=== PATIENT | male | born 1965 | race Caucasian/White ===

== ENCOUNTER → 2018-07-13 05:57 | Outpatient (CLI) | payer SELFPAY ==
--- NOTE | 2018-07-13 06:00 | ECHOD_ITS ---
Reason For Study: AFIB Procedure This was a 2D Doppler, Color Flow transthoracic echocardiogram. Exam performed in department. Left Ventricle Normal LV size. Left ventricular systolic function is lower limits of normal. The estimated ejection fraction is 53 %. Stage 1 diastolic dysfunction. No regional wall motion abnormalities noted. Right Ventricle Normal RV size. Normal systolic function. Atria Normal left atrium. Normal right atrium. Mitral Valve Normal mitral valve. Tricuspid Valve Normal tricuspid valve. Aortic Valve Trisinus/trileaflet aortic valve. Trivial aortic valve insufficiency. Pulmonic Valve Normal pulmonic valve. Great Vessels Normal aortic root. The pulmonary artery is normal size. Normal inferior vena cava. Pericardium/Pleural No pericardial effusion. Medication Diluted definity 6ml given slow IV push to enhance endocardial definition. MMode/2D Measurements & Calculations LVIDd: 4.8 cm IVSd: 0.99 cm Ao root diam: 3.5 cm RVDd: 3.7 cm LVPWd: 0.99 cm LA dimension: 3.2 cm LAV(MOD-bp): 49.5 ml EDV(MOD-sp4): 108.7 ml EDV(MOD-sp2): 122.7 ml LAV(MOD-bp) Indexed: 22.3 ml/m2 ESV(MOD-sp4): 50.0 ml EF(MOD-sp2): 36.6 % LAV(MOD-sp2): 51.9 ml EF(MOD-sp4): 54.0 % LAV(MOD-sp4): 43.5 ml SV(MOD-sp4): 58.7 ml SV(MOD-sp2): 44.9 ml LA A4 area: 16.5 cm2 RA A4 area: 16.0 cm2 Time Measurements MV dec time: 0.22 sec Doppler Measurements & Calculations MV E max joe: 41.9 cm/sec Lat Peak E' Joe: 10.1 cm/sec Med Peak E' Joe: 9.7 cm/sec MV A max joe: 51.4 cm/sec E/E' lat: 4.1 E/E' med: 4.3 MV E/A: 0.81 Ao V2 max: 109.9 cm/sec AI max joe: 415.1 cm/sec LV V1 max: 88.3 cm/sec Ao max P.8 mmHg AI max P.9 mmHg LV V1 max P.1 mmHg AI dec slope: 226.7 cm/sec2 AI P1/2t: 536.3 msec PA V2 max: 89.4 cm/sec PI end-d joe: 85.9 cm/sec TR max joe: 228.1 cm/sec TR max P.8 mmHg Interpretation Summary Normal LV size. Left ventricular systolic function is lower limits of normal. The estimated ejection fraction is 53 %. Stage 1 diastolic dysfunction. Contrast injection was performed. Ordering Physician: Michael Mata Performed By: Karla Lua RDCS, RVT
--- NOTE | 2018-07-13 17:58 | STRESSREP_ITS ---
Stress Test Report Exercise myocardial perfusion stress test. 53-year-old man with a history of alcoholic cardiomyopathy. Stress protocol: Resting EKG demonstrates normal sinus rhythm with a rate of 67 bpm normal intervals and noted resting blood pressure is 120/81 mmHg. The patient exercised according to the regular Ramesh protocol for total duration of 11 minutes patient completed 2 minutes into stage IV of the Ramesh protocol the maximum heart rate attained was 162 bpm which was 95% of maximum predicted heart rate the maximum workload was 13.4 metabolic equivalents. At rest there were no ST or T-wave changes noted suggest ischemia peak exercise upsloping ST changes only were noted with no meet the criteria for ischemia. No clinical angina was noted. There were occasional premature ventricular complexes noted as well as one 8 beat run of a wide complex tachyarrhythmia. This was asymptomatic. The resting blood pressures 120/81 with a peak blood pressure 160 /88. The test was terminated due to generalized fatigue. Myocardial perfusion protocol. 12.0 mCi of technetium 99m sestamibi was injected at rest. The patient then exercised according to regular Ramesh protocol for total duration of 11 minutes attaining 95% of maximum predicted heart rate and a workload of 13.4 metabolic equivalents. At peak exercise 35.9 mCi of technetium 99m sestamibi was injected stress images were obtained stress and rest images were reconstructed and compared in the short axis vertical long horizontal long axis. Gated images were also obtained pre- Perfusion SPECT analysis: Review of the stress images demonstrate normal uptake of tracer noted in all areas of myocardium. The resting images similarly demonstrate normal uptake of tracer noted in all areas of the myocardium. No areas of reversibility are noted suggest ischemia. No previous infarct is noted. Gated SPECT analysis: The gated ejection fraction is noted to be 51%. Conclusion: Normal exercise myocardial perfusion stress test with no evidence of ischemia. Excellent functional capacity. No clinical angina noted. Asymptomatic wide complex tachycardia noted.
== END ==
PROVIDERS: Visit Provider Internal Medicine Cardiovascular Disease
DX: I48.91 Unspecified atrial fibrillation (principal); I42.9 Cardiomyopathy, unspecified; R07.9 Chest pain, unspecified
CPT/HCPCS: 78452; 93017; 93306; A9500; Q9957; A4216; C8929

== ENCOUNTER 2020-04-26 15:55 | Observation (INO) | payer BC, SELFPAY ==
[2019-11-19 08:57] VITALS: BMI 26.9
[2020-04-26] VITALS (7 sets, daily range): BP systolic 113–156; BP diastolic 71–102; PULSE 59–83; RESP 16–18; TEMP 36.7–37; O2SAT 95–99; BMI 27.1; BMI 26.9
--- NOTE | 2020-04-26 16:37 | EKG12_ITS ---
Test Reason : DYSRHYTHMIA Blood Pressure : / mmHG Vent. Rate : 070 BPM Atrial Rate : 070 BPM P-R Int : 180 ms QRS Dur : 094 ms QT Int : 386 ms P-R-T Axes : 064 025 034 degrees QTc Int : 416 ms Normal sinus rhythm Normal ECG Confirmed by JEFFREY CELESTIN, BARRY ([id number]), website/blog editor KRUPA VIEIRA ([id number]) on 05/01/2020 8:03:47 AM Referred By: CL Confirmed By:BARRY MURPHY MD
--- NOTE | 2020-04-26 16:38 | ED.VIS.GEN ---
History of Present Illness Chief Complaint: Shortness of Breath Informant: Patient Narrative: 54-year-old male with past medical history of paroxysmal atrial fibrillation presents with concern for weakness, dizziness, shortness of breath, blurred vision, difficulty speaking. States this occurred approximately 8 hours ago. States that he was seated in a truck whenever he felt like his vision became slightly blurred. States that at that time he felt like his ears were getting warm and he had difficulty speaking. States this lasted for 2 to 3 minutes. States that he went to [facility] they ran a full panel of tests and wanted to admit him to the hospital. Patient lives closer to this hospital so he came here for further evaluation. States that he is this issue intermittently. States that the last episode was approximately 1 month ago. Patient is not on anticoagulation for his paroxysmal Atrial fibrillation. Only takes metoprolol at this time. Denies any drugs or alcohol. Patient is not a current smoker. Past Medical History - Allergies and Home Meds Allergies/Adverse Reactions: Allergies No Known Allergies Allergy (Verified 04/26/20 15:56) Prior records reviewed: Yes Past Medical History: - - PAF Surgical History: no surgical history Smoking Status: Never smoker Alcohol: None Drugs: None Review of Systems General: Denies: Chills, Fever, Sweats Eyes: Reports: Blurred Vision - bilaterally. Denies: Visual changes - bilaterally, Diplopia ENT: Denies: Rhinorrhea, Sore throat Cardiovascular: Denies: Chest pain, Palpitations Respiratory: Reports: Dyspnea. Denies: Cough, Dyspnea on exertion Gastrointestinal: Denies: Abdominal pain, Nausea, Vomiting, Diarrhea, Melena, Hematochezia Genitourinary: Denies: Dysuria, Hematuria, Frequency Musculoskeletal: Denies: Back pain, Extremity Pain Skin: Denies: Rash, Wounds Neurological: Reports: Weakness, - - difficulty speaking. Denies: Headache, Numbness Physical Exam Vital Signs/Narrative: Vital Signs Temp Pulse Resp BP Pulse Ox 04/26/20 15:57 98.2 F 79 18 156/88 H 99 Inital Vital Signs reviewed: Yes General: Well nourished, Well developed, No Acute Distress Head: Normocephalic, Atraumatic Eyes: Perrl, EOMI ENT: Moist mucous membranes, No rhinorrhea Neck: Supple, Nontender Cardiovascular: Regular rate, Regular rhythm, No murmurs Respiratory: No distress, CTA bilaterally, Chest nontender Abdomen: Soft, Nontender, Nondistended, Normal bowel sounds Back: Nontender, Normal Inspection Extremities: Nontender, No edema Skin: Normal color, No rash Neurological: Alert, Oriented x3, Cranial nerves II-XII grossly intact, Normal Strength, Normal Sensation Psychological: Normal affect, Normal Mood Diagnostic/Tx/Re-eval Laboratory Data 04/26/20 04/26/20 04/26/20 16:45 16:45 16:49 WBC 8.0 RBC 5.08 Hgb 15.1 Hct 45.5 MCV 89.6 MCH 29.7 MCHC 33.2 RDW Std Deviation 42.4 RDW Coeff of Cher 12.9 Plt Count 214 MPV 10.8 Immature Gran % (Auto) 0.600 Neut % (Auto) 74.3 H Lymph % (Auto) 17.9 L [place] % (Auto) 6.3 Eos % (Auto) 0.4 Baso % (Auto) 0.5 Absolute Neuts (auto) 6.0 Absolute Lymphs (auto) 1.44 Nucleated RBC % 0 Sodium 139 Potassium 4.1 Chloride 107 Carbon Dioxide 27.0 Anion Gap 5 BUN 8 Creatinine 0.99 Estim Creat Clear Calc 101.48 Est GFR (MDRD) Af Amer 101 Est GFR (MDRD) Non-Af 84 BUN/Creatinine Ratio 8.1 L Glucose 108 H Calcium 9.4 Troponin I < 0.015 TSH 1.89 POC Glucose 101 - Rhythm Strip Rhythm Strip: Sinus Rhythm Rate: 70 Ectopy: None - EKG Initial EKG Interpretation: Sinus Rhythm, - - NSR at 70 bpm. WV interval of 180 ms. Qtc of 416 ms. No acute ischemia. - Medical Decision Making Appears and well nontoxic. No focal neurologic deficit. CT brain done at outlying facility with negative result. Basic lab work repeated which shows no significant abnormality. Troponin remains negative and EKG nonischemic. Patient did receive aspirin. Spoke with the physician at [place] who felt that the patient was having TIAs. After discussion with the patient he is agreeable with admission. Spoke with Dr. Ludwig who was also agreeable and patient was admitted in stable condition. ED Disposition - Plan for ED Patient: Diagnosis: TIA (transient ischemic attack), Dyspnea
[2020-04-26 16:55] LABS: Bedside Glucose 101 mg/dL (70-110)
[2020-04-26 17:05] LABS: Absolute Lymphocyte Count 1.44 X10^3/uL (0.83-4.51); Basophil# 0.04 X10^3/uL; Basophil% 0.5 % (0-1); Eosinophil# 0.03 X10^3/uL; Eosinophils% 0.4 % (0-5); Hematocrit 45.5 % (40-54); Hemoglobin 15.1 g/dL (13.0-16.5); Lymphocyte # 1.44 X10^3/ul (4.0); Lymphocyte % 17.9 % (19-41); Mean Corp Hgb Conc 33.2 g/dL (32-36); Mean Corpuscular Hgb 29.7 pg (27.0-32.0); Mean Corpuscular Volume 89.6 fL (80-94); Mean Platelet Vol. 10.8 fl (6.2-12.0); Monocyte# 0.51 X10^3/uL; Monocyte% 6.3 % (0-10); NRBC Flagged by Analyzer 0 % (0-5); Neutrophil # 5.97 X10^3/uL (2.7-7.7); Neutrophil % 74.3 % (47-70); Platelet Count 214 K/mm3 (150-450); RBC Distribution Width CV 12.9 % (11.6-14.6); RBC Distribution Width SD 42.4 fl (35.1-43.9); Red Blood Count 5.08 M/mm3 (4.6-6.2)
[2020-04-26 17:29] LABS: Anion Gap 5 (5-15); BUN 8 mg/dL (7-18); BUN/Creat Ratio 8.1 RATIO (10-20); Calcium,Total 9.4 mg/dL (8.5-10.1); Chloride 107 mmol/L (98-107); Creatinine, Serum 0.99 mg/dL (0.70-1.30); EST Glomerular Filtration Rate 84 mL/min (>60); Est Glom Filt Rate - Afr Amer 101 mL/min (>60); Estimated Creatinine Clearance 101.48 ml/min; Glucose 108 mg/dL (74-106); Potassium 4.1 mmol/L (3.5-5.1); Sodium Level 139 mmol/L (136-145); Thyroid Stim Hormone (TSH) 1.89 uIU/mL (0.358-3.74)
--- NOTE | 2020-04-26 18:47 | HP.PCM_ITS ---
Problem List (1) TIA (transient ischemic attack) Status: Acute (2) Dyspnea Status: Acute (3) Paroxysmal atrial fibrillation Status: Chronic History of Present Illness Date of Admission: 04/26/20 Chief Complaint: dysarthria The patient is a 54 year old M who was in his normal state of health up until this morning where he just felt very short of breath. Stated he put a pulse ox on to check his heart rate which he said was normal. Patient does have a known history of paroxysmal atrial fibrillation but stated that when his atrial fibrillation accept he feels palpitations which he did not today. Just felt off felt his ears were warm his head was warm and felt that he could not say things because he was so short of breath. Stated that his hands and his feet were just cold. Denied any unilateral weakness. He denied dysarthria but stated that he just could not say his sister's name nor where she worked even though he knew where it was because he stated that he felt so short of breath. He denies any chest pain. All of his symptoms resolved in short period of time. Patient went to outside emergency room in [place] where they did a head CT and chest x-ray that were unremarkable. They advised the patient be admitted for further stroke evaluation but he declined preferring to come to [facility] for evaluation. Since being here he is had no further symptoms. He denies ever having had these symptoms before. Additionally patient denied any feeling of dizziness or lightheadedness with any of this. [] Past Medical History Past Medical History (Chronic Problems): Chronic Problems (Last Reviewed 11/19/19 @ 10:[address] Michael Mata MD) Paroxysmal atrial fibrillation (Chronic) Medical History: Medical History (Last Reviewed 04/26/20 @ 18:[address] Claudio Harrison DO) Paroxysmal atrial fibrillation (Chronic) I48.0 Non-ischemic cardiomyopathy I42.8 Allergies No Known Allergies Allergy (Verified 04/26/20 15:56) Home Medications: Ambulatory Orders Medication Instructions Recorded Metoprolol Succinate [Toprol Xl] 25 mg PO DAILY 04/26/20 Multivitamin [Multivitamins] 1 tab PO DAILY 04/26/20 Surgical History: Surgical History (Last Reviewed 11/19/19 @ 10:[address] Michael Mata MD) History of cardioversion Onset Date: 09/08/15 Z98.890 Surgical History: no surgical history Smoking Status: Never smoker Alcohol: None Drugs: None - *Family History Maternal Family History: Family History (Last Reviewed 04/26/20 @ 18:[address] Claudio Harrison DO) Other Heart disease Hypertension Review of Systems Constitutional: Denies: Anorexia, Chills, Fever, Malaise, Weakness Eyes: Denies: Blurred vision, Double vision HEENT: Denies: Head Aches, Sinus Congestion, Sinus Drainage Cardiovascular: Denies: Chest Pain, Edema, Palpitations Respiratory: Reports: Shortness of Breath. Denies: Cough Gastrointestinal: Denies: Abdominal Pain, Nausea, Vomiting Genitourinary: Denies: Dysuria Musculoskeletal: Denies: Joint Pain, Joint Tenderness Skin: Denies: Rash, Wounds Neurological: Reports: Change in Speech, - - Unable to say anything because he is so short of breath.. Denies: Blurred vision, Double vision, Slurred speech Psychiatric: Reports: - - Denies history of panic attacks. Denies: Anxiety, Depression Hematologic/ Lymphatic: Denies: Easy Bruising, Easy Bleeding, Hx of blood clot Comment: All review of systems were negative except as mentioned above in the history of present illness and the other review of systems. VTE Information - Inpt Only VTE Present on Admission: No VTE Mechan Device Prophylaxis: None VTE Pharm Prophylaxis ordered?: No Reason prophylaxis not ordered:: Treatment Not Indicated Patient Problems: Active and Suspected Problems (Last Reviewed 11/19/19 @ 10:[address] Michael Mata MD) TIA (transient ischemic attack) (Acute) Dyspnea (Acute) - Physical Exam Vitals/I&O's: Vital Signs Temp Pulse Resp BP Pulse Ox 37.0 C 60 16 129/102 H 97 04/26/20 18:39 04/26/20 18:39 04/26/20 18:39 04/26/20 18:39 04/26/20 18:39 Oxygen Delivery Method Room Air Weight: 95.1 kg Body Mass Index (BMI) 26.9 Finger Stick Blood Glucose 101 General: Alert, Cooperative, No apparent distress HEENT: Atraumatic, PERRLA, EOMI, Normocephalic Oral: Moist Mucosa, No Gingival or Mucosal Lesions/ Ulcerations Neck: No Nodes, Trachea Midline Lungs: Clear to auscultation, Normal air movement, No rhonchi, No wheeze, No rales Cardiovascular: Regular rate, Regular Rhythm, Normal S1, Normal S2, No murmurs Abdomen: Bowel Sounds Present, Soft, Non Tender, Non-Distended, No Hepato- splenomegaly Extremities: No edema, No Calf Tenderness Skin: No rashes, No breakdown Musculoskeletal: No Tenderness to Palpation of Joints or Extremities, No Muscle Wasting Neurological: Cranial nerves II-XII grossly intact, Motor Exam 5/5 strength throughout Psych/Mental Status: Normal Affect, Appropriate Laboratory Results 04/26/20 16:45: WBC 8.0, RBC 5.08, Hgb 15.1, Hct 45.5, MCV 89.6, MCH 29.7, MCHC 33.2, RDW Std Deviation 42.4, RDW Coeff of Cher 12.9, Plt Count 214, MPV 10.8, Immature Gran % (Auto) 0.600, Neut % (Auto) 74.3 H, Lymph % (Auto) 17.9 L, [place] % (Auto) 6.3, Eos % (Auto) 0.4, Baso % (Auto) 0.5, Absolute Neuts (auto) 6.0, Absolute Lymphs (auto) 1.44, Nucleated RBC % 0 04/26/20 16:45: Sodium 139, Potassium 4.1, Chloride 107, Carbon Dioxide 27.0, Anion Gap 5, BUN 8, Creatinine 0.99, Estim Creat Clear Calc 101.48, Est GFR (MDRD) Af Amer 101, Est GFR (MDRD) Non-Af 84, BUN/Creatinine Ratio 8.1 L, Glucose 108 H, Calcium 9.4, Troponin I < 0.015, TSH 1.89 04/26/20 16:49: POC Glucose [address] and chest x-ray from [place] showed no acute process. EKG reviewed and showed normal sinus rhythm with no acute changes. Current Medications Sodium Chloride () 10 - 40 ml IV UD PRN PRN Reason: SALINE FLUSH Assessment/Plan All Active Problems (Last Reviewed 11/19/19 @ 10:[address] Michael Mata MD) TIA (transient ischemic attack) (Acute) Dyspnea (Acute) 1. Dysarthria: Patient denies any actual dysarthria but states that he just could not say anything because he was short of breath. The work-up thus far has been unremarkable and patient has not been hypoxic since being here. I am concerned that there is some other process that may be causing his inability to speak rather than just him being short of breath. He states that he did check his pulse ox for his heart rate but not necessary for the oxygen stating that he does not remember what his oxygen levels were. I think it is prudent to worked the patient up for stroke as patient does have paroxysmal atrial fibrillation. Patient denies his atrial fibrillation acting up but explained to him that he may have periods where he may be in A. fib and not know it. The patient had an MRI of the brain, MRA of the head neck and echocardiogram. Consider neurology consultation based on those results. Other possibilities could include vertigo with the patient was feeling dizzy but the patient himself denied feeling dizzy. And another possibility could be cardiac though the patient was not have any chest pain with any of this. So may consider further cardiac evaluation with a stress test if felt to be necessary. I will cycle troponins however. Patient will be on aspirin. 2. Paroxysmal atrial fibrillation: Continue with metoprolol. 3. VTE prophylaxis: Low risk as patient is observation status. 4. Advanced care planning: Patient wishes to be full CODE STATUS. Discussed the case with the patient's sister present at bedside. OBSV E&M: [id number] Initial observation care L3
--- NOTE | 2020-04-26 18:50 | ECHOD_ITS ---
Reason For Study: TIA/CVA Procedure This was a 2D Doppler, Color Flow transthoracic echocardiogram. Exam performed portable in patient room. Left Ventricle Normal LV size. The estimated ejection fraction is 47 %. Normal diastology for age. No regional wall motion abnormalities noted. Right Ventricle Normal RV size. Normal systolic function. Atria Normal left atrium. Normal right atrium. Mitral Valve Normal mitral valve. Trivial eccentric mitral valve insufficiency. Tricuspid Valve Normal tricuspid valve. Mild tricuspid valve insufficiency. Pulmonary artery systolic pressure is 23 mmHg. Aortic Valve Trisinus/trileaflet aortic valve. Mild (1+) eccentric aortic valve insufficiency. Pulmonic Valve Normal pulmonic valve. Mild (1+) pulmonic valve insufficiency. Great Vessels Normal aortic root. The pulmonary artery is normal size. Normal inferior vena cava. Pericardium/Pleural No pericardial effusion. MMode/2D Measurements & Calculations LVIDd: 4.7 cm IVSd: 0.97 cm Ao root diam: 3.4 cm LVIDs: 3.1 cm LVPWd: 0.94 cm RVDd: 4.1 cm FS: 35.3 % LAV(MOD-bp): 32.4 ml LA A4 area: 12.7 cm2 LA dimension(2D): 2.8 cm LAV(MOD-bp) Indexed: 14.6 ml/m2 LAV(MOD-sp2): 27.6 ml LAV(MOD-sp4): 27.6 ml RA A4 area: 16.1 cm2 Doppler Measurements & Calculations MV E max joe: 47.5 cm/sec Lat Peak E' Joe: 11.0 cm/sec Med Peak E' Joe: 8.1 cm/sec MV A max joe: 38.3 cm/sec E/E' lat: 4.3 E/E' med: 5.9 MV E/A: 1.2 Ao V2 max: 115.6 cm/sec AI max joe: 389.3 cm/sec LV V1 max: 92.7 cm/sec Ao max P.3 mmHg AI max P.6 mmHg LV V1 max P.4 mmHg Ao V2 mean: 82.6 cm/sec AI dec slope: 148.1 cm/sec2 Ao mean P.9 mmHg AI P1/2t: 770.0 msec Ao V2 VTI: 23.2 cm PA V2 max: 72.8 cm/sec TR max joe: 222.1 cm/sec TR max P.7 mmHg Interpretation Summary Normal LV size. The estimated ejection fraction is 47 %. Normal diastology for age. Mild (1+) eccentric aortic valve insufficiency. Trivial eccentric mitral valve insufficiency. Mild tricuspid valve insufficiency. Pulmonary artery systolic pressure is 23 mmHg. Compared to prior study, there is no significant change. Ordering Physician: Claudio Harrison Performed By: Zaira Mendoza, SALIMA, RVT
[2020-04-27] VITALS (10 sets, daily range): BP systolic 110–128; BP diastolic 69–81; PULSE 63–75; RESP 16–18; TEMP 36.4–36.8; O2SAT 95–97; BMI 26.9
--- NOTE | 2020-04-27 06:00 | MRI_ITS ---
STUDY: MRI BRAIN WITHOUT CONTRAST REASON FOR EXAM: Male, 54 years old. dysarthria, weakness TECHNIQUE: Standardized multiplanar fat and water weighted pulse sequences were obtained. COMPARISON: None. FINDINGS: Normal size of the ventricles and extra-axial spaces for the patient''s age. Normal white matter tracts of the supratentorial brain. There is no evidence for recent intracranial ischemia or other cause of cytotoxic edema on diffusion weighted imaging (DWI). Normal T2* images of the brain without demonstrated susceptibility artifact. There is no demonstrated hemosiderin stain. 1.2 cm T1 hypointense, inversion recovery isointense, T2 hyperintense mass within the occipital horn of the right lateral ventricle which may represent a choroid plexus cyst which is most of the conspicuous on the diffusion-weighted images. Correlation with the MRI with contrast is recommended. Normal bilateral basal ganglia. Normal thalami. There is no extra-axial fluid accumulation. Normal flow voids within the major intracranial circulation suggesting patency by spin echo criteria. Normal sella turcica, pituitary gland, infundibular stalk, optic chiasm and hypothalamus. Normal tectal plate and pineal gland. Normal midbrain, gonzales and medulla. Normal cerebellum. Normal basal cisterns. Normal bilateral temporal bones. Normal bilateral internal auditory canals. No demonstrated orbital abnormality, within the constraints of a routine brain study. Normal visualized paranasal sinuses. Normal calvarium and skull base. Normal visualized soft tissue structures. Normal visualized upper cervical spine. MRI/Brain without Contrast IMPRESSION: Suspect 1.2 cm of the mass of the occipital horn of the right lateral ventricle possibly a choroid plexus cyst. Correlation with MRI with contrast is recommended. Electronically Signed: Duong Blackwell MD at 10:05 EDT Tel , Service support ,
--- NOTE | 2020-04-27 06:00 | MRI_ITS ---
STUDY: MRA OF THE HEAD WITHOUT CONTRAST REASON FOR EXAM: Male, 54 years old. dysarthria, weakness TECHNIQUE: 3-D [id number] (TOF) imaging was performed with MIPs. The study was performed unenhanced. COMPARISON: None. FINDINGS: Normal bilateral petrous carotid arteries. Normal right cavernous carotid artery with a normal supraclinoid bifurcation. Normal left cavernous carotid artery with a normal supraclinoid bifurcation. Normal right A1 segments of the anterior cerebral artery. Normal left A1 segments of the anterior cerebral artery. Normal intact anterior communicating artery (ACOM). Normal bilateral A2 segments of the anterior cerebral arteries. Normal right M1 and M2 segments of the middle cerebral arteries, with a normal M1 bifurcation. Normal left M1 and M2 segments of the middle cerebral arteries, with a normal M1 bifurcation. Normal right posterior communicating artery (PCOM). Normal left posterior communicating artery (PCOM). Normal bilateral vertebral arteries. Normal basilar artery with a normal basilar bifurcation. The visualized bilateral superior cerebellar (SCA) arteries are normal. Normal bilateral P1, P2 and visualized P3 segments of the posterior cerebral arteries. There is no demonstrated aneurysm of the [place]. There is no major vessel occlusion or hemodynamically significant stenosis. There is no demonstrated abnormality of the visualized brain. MRI/MRA Head ONLY without Contrast IMPRESSION: Normal MRA of the head Electronically Signed: Libia Spaulding, at 10:38 EDT Tel , Service support ,
--- NOTE | 2020-04-27 06:00 | MRI_ITS ---
STUDY: MRA NECK WITH AND WITHOUT CONTRAST REASON FOR EXAM: Male, 54 years old. dysarthria, weakness TECHNIQUE: 3-D [id number] (TOF) imaging was performed in an 1.5 T MRI scanner. IV Dotarem 19ml was administered for the contrast enhanced images. COMPARISON: None. FINDINGS: RIGHT CAROTID ARTERIES: Normal right common carotid artery (CCA). Normal right common carotid bulb. Normal origin of the right internal carotid (ICA) artery without a hemodynamically significant stenosis. Normal visualized cervical portion of the right internal carotid artery. Normal origin of the right external carotid artery (ECA). LEFT CAROTID ARTERIES: Normal left common carotid artery (CCA). Normal left common carotid bulb. Normal origin of the left internal carotid (ICA) artery without a hemodynamically significant stenosis. Normal visualized cervical portion of the left internal carotid artery. Normal origin of the left external carotid artery (ECA). VERTEBRAL ARTERIES: Normal antegrade flow within the bilateral vertebral artery without a hemodynamically significant stenosis. MRI/MRA Neck WITH and W/O Contrast IMPRESSION: Normal bilateral cervical carotid and vertebral arteries. Electronically Signed: Libia Spaulding, at 10:52 EDT Tel , Service support ,
[2020-04-27 06:36] LABS: Cholesterol 217 mg/dL (200); High Density Lipoprotein 38 mg/dL; Triglycerides 97 mg/dL; Very Low Density Lipoprotein 19 mg/dL (5-40)
[2020-04-27] MEDS: LORazepam 2 MG/ML Syringe 1 MG IV ×2 (08:50→10:54)
[2020-04-27] MEDS: Multivitamins,Therapeutic Tablet 1 TABLET PO (10:06)
[2020-04-27] MEDS: Aspirin 81 MG TAB.CHEW PO (10:06)
[2020-04-27] MEDS: Metoprolol(XL)Succ 25 MG Tablet PO (10:06)
--- NOTE | 2020-04-27 10:21 | MRI_ITS ---
STUDY: MRI BRAIN WITH CONTRAST REASON FOR EXAM: Male, 54 years old. mass, follow up to non contrast scan TECHNIQUE: Standardized multiplanar fat and water weighted pulse sequences were obtained. IV Dotarem 19ml given at 930am for mra carotid exam was administered for the contrast portion of the examination. COMPARISON: 04/27/2020 FINDINGS: Previously described of a T2 hyperintense mass within the occipital horn of the right lateral ventricle does not demonstrate appreciable contrast enhancement most consistent with a choroid plexus cyst.. 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 Electronically Signed: Duong Blackwell MD at 12:03 EDT Tel , Service support ,
[2020-04-27] MEDS: 0.9% Saline Lock 10 ML Syringe IV (10:54)
[2020-04-27] MEDS: Acetaminophen 325 MG Tablet 650 MG PO (13:48)
--- NOTE | 2020-04-27 14:23 | PCM.PN.HOSP ---
<Kelechi Vargas - Last Filed: 04/27/20 14:23> Patient Problems: Active and Suspected Problems (Last Reviewed 04/26/20 @ 18:[address] Claudio Harrison DO) TIA (transient ischemic attack) (Acute) Dyspnea (Acute) Reason for Visit: Pt resting comfortably in bed NAD. He states that he does not feel back to himself yet however cant quite define what still is wrong. His presenting symptoms were a new onset of difficulty speaking that he described as feeling too weak to get the words out, but insists that he did not have trouble with word finding or slurring. He denied headache. He had visual changes he described as seeing new floaters. He has none of these symptoms now. He has no confusion. He has no parasthesias or focal weakness. No ataxia, dizziness, or swallowing issues. Vitals/I&O's: Vital Signs Temp Pulse Resp BP Pulse Ox 97.7 F L 64 16 113/81 H 97 04/27/20 10:00 04/27/20 10:06 04/27/20 10:00 04/27/20 10:00 04/27/20 10:00 Oxygen Delivery Method Room Air Weight: 209 lb 10.554 oz Body Mass Index (BMI) 26.9 Finger Stick Blood Glucose 101 Intake and Output for Last 24 Hours 04/25/20 04/26/20 04/27/20 23:59 23:59 23:59 Intake Total 220 / 220 600 / 600 Balance 220 / 220 600 / 600 General: Alert, Oriented x3, Cooperative HEENT: Atraumatic, PERRLA, EOMI, Normocephalic Neck: Supple, No JVD, Negative Carotid Bruits Lungs: Clear to auscultation, Normal air movement Cardiovascular: Regular rate, No murmurs Abdomen: Bowel Sounds Present, Soft, Non Tender Extremities: No edema, Capillary Refill Less than 3 Seconds Skin: No rashes, No breakdown Musculoskeletal: No Tenderness to Palpation of Joints or Extremities Neurological: Cranial nerves II-XII grossly intact Psych/Mental Status: Normal Affect, Appropriate, Alert and oriented to time, place, person, mood and affect Laboratory Results 04/26/20 16:45: WBC 8.0, RBC 5.08, Hgb 15.1, Hct 45.5, MCV 89.6, MCH 29.7, MCHC 33.2, RDW Std Deviation 42.4, RDW Coeff of Cher 12.9, Plt Count 214, MPV 10.8, Immature Gran % (Auto) 0.600, Neut % (Auto) 74.3 H, Lymph % (Auto) 17.9 L, Frontier % (Auto) 6.3, Eos % (Auto) 0.4, Baso % (Auto) 0.5, Absolute Neuts (auto) 6.0, Absolute Lymphs (auto) 1.44, Nucleated RBC % 0 04/26/20 16:45: Sodium 139, Potassium 4.1, Chloride 107, Carbon Dioxide 27.0, Anion Gap 5, BUN 8, Creatinine 0.99, Estim Creat Clear Calc 101.48, Est GFR (MDRD) Af Amer 101, Est GFR (MDRD) Non-Af 84, BUN/Creatinine Ratio 8.1 L, Glucose 108 H, Calcium 9.4, Troponin I < 0.015, TSH 1.89 04/26/20 16:49: POC Glucose 101 04/26/20 20:15: Troponin I < 0.015 04/26/20 22:30: Troponin I < 0.015 04/27/20 05:48: Triglycerides 97, Cholesterol 217 H, LDL Cholesterol 160 H, VLDL Cholesterol 19, HDL Cholesterol 38 L Current Medications Acetaminophen (Tylenol) 650 mg PO Q6H PRN PRN PRN Reason: Pain Score 1-10/Temp > 100.7 F Last Admin: 04/27/20 13:48 Dose: 650 mg Documented by: Aspirin (Aspirin, Baby) 81 mg PO DAILY@0800 BELEN Last Admin: 04/27/20 10:06 Dose: 81 mg Documented by: Dextrose (D50w Syringe) 0 gm IV X1 PRN; Protocol PRN Reason: Hypoglycemia Glucagon () 1 mg IM .X1 PRN PRN Reason: Hypoglycemia Hydralazine HCl (Apresoline Iv) 5 mg IV Q30M PRN PRN Reason: to maintain BP goals Sodium Chloride () 250 mls @ 15 mls/hr IV .[id number] PRN PRN Reason: Saline Flush Sodium Chloride () 250 mls @ 15 mls/hr IV .[id number] PRN PRN Reason: Additional IVPB Infusion Labetalol HCl (Trandate) 10 - 20 mg IV Q10M PRN PRN PRN Reason: to maintain BP goals Meclizine HCl (Antivert) 25 mg PO 4X/DAY PRN PRN PRN Reason: DIZZINESS Metoprolol Succinate (Toprol Xl (Beta Isauro)) 25 mg PO DAILY [facility] Last Admin: 04/27/20 10:06 Dose: 25 mg Documented by: Multivitamins (Multivitamin) 1 tablet PO DAILY@0800 [facility] Last Admin: 04/27/20 10:06 Dose: 1 tablet Documented by: Ondansetron HCl (Zofran) 4 mg IV Q8H PRN PRN PRN Reason: NAUSEA/VOMITING Sodium Chloride () 10 - 40 ml IV UD PRN PRN Reason: SALINE FLUSH Last Admin: 04/27/20 10:54 Dose: 10 ml Documented by: Medical Necessity - Tobacco Use Smoking Status: Never smoker Assessment/Plan All Active Problems (Last Reviewed 04/26/20 @ 18:[address] Claudio Harrison, DO) TIA (transient ischemic attack) (Acute) Dyspnea (Acute) 1. Speech and vision changes - MRI neg for stroke. follo up MRI with contrast shows 1.2 cm choroid plexus cyst in the occipital horn of the right lateral ventricle likely of no significance. MRA of the head and neck is unremarkable. 2D TTE is pending. Troponin negative x3. TSH normal. LDL not within goal. He does have paroxysmal atrial fibrillation and does not take a blood thinner. He is in sinus rhythm. -Ongoing vague complaints however denies presenting complaints. -Obtain EEG -Obtain neuro consult 2. P A. fib-as above, continue metoprolol. DVT prophylaxis This patient was seen by Kelechi Vargas PA-C under the supervision of Doctor Trey. <Berenice Yang - Last Filed: 04/27/20 15:24> Reason for Visit: The following is a reflection of my independent history and physical exam Pt states that he is feeling better but is not quite back to baseline. He states that he is still noticing at times that he is having difficulty getting his words out and is too weak to do so. He reports that he speech is not slurred and he knows what he wants to say but just feels like he is slow with his speech. Denies and T/N/W. No further visual disturbances of the floaters. Vitals/I&O's: Vital Signs Temp Pulse Resp BP Pulse Ox 97.7 F L 64 16 113/81 H 97 04/27/20 10:00 04/27/20 10:06 04/27/20 10:00 04/27/20 10:00 04/27/20 10:00 Oxygen Delivery Method Room Air Weight: 95.1 kg Body Mass Index (BMI) 26.9 Finger Stick Blood Glucose 101 Intake and Output for Last 24 Hours 04/25/20 04/26/20 04/27/20 23:59 23:59 23:59 Intake Total 220 / 220 600 / 600 Balance 220 / 220 600 / 600 General: Alert, Oriented x3, Cooperative, No apparent distress, Well developed, Well nourished, - - Middle aged WM, sitting up in bed getting ready to go to MRI, appears comfortable and speech is fluent and not delayed HEENT: Atraumatic, PERRLA, EOMI, Normocephalic, EAC Clear Oral: Moist Mucosa, No Gingival or Mucosal Lesions/ Ulcerations Neck: Supple, No JVD, Negative Carotid Bruits, Negative Hepatojugular Reflux, No Nodes, No Nuchal Rigidity, Trachea Midline, Thyroid Normal Size and Texture Lungs: Clear to auscultation, Normal air movement, No rhonchi, No wheeze, No rales Cardiovascular: Regular rate, Regular Rhythm, Normal S1, No murmurs, No Ectopic Activity, No rub noted, No Gallop Abdomen: Bowel Sounds Present, Soft, Non Tender, Non-Distended, No Hepato-splenomegaly Extremities: No clubbing, No cyanosis, No edema, Capillary Refill Less than 3 Seconds, No Calf Tenderness, Peripheral Pulses Normal Skin: No rashes, No breakdown Musculoskeletal: No Tenderness to Palpation of Joints or Extremities, No Muscle Wasting Lymphatic: - - no cervical or supraclavicular LAD Neurological: Cranial nerves II-XII grossly intact, Deep Tendon Reflexes 2+/4 and Symmetrical, Neuro grossly intact, Motor Exam 5/5 strength throughout, Muscle tone normal, Sensory exam intact to light touch and pain, Coordination normal, - - speech is fluent Psych/Mental Status: Normal Affect, Appropriate, Alert and oriented to time, place, person, mood and affect Laboratory Results 04/26/20 16:45: WBC 8.0, RBC 5.08, Hgb 15.1, Hct 45.5, MCV 89.6, MCH 29.7, MCHC 33.2, RDW Std Deviation 42.4, RDW Coeff of Cher 12.9, Plt Count 214, MPV 10.8, Immature Gran % (Auto) 0.600, Neut % (Auto) 74.3 H, Lymph % (Auto) 17.9 L, Frontier % (Auto) 6.3, Eos % (Auto) 0.4, Baso % (Auto) 0.5, Absolute Neuts (auto) 6.0, Absolute Lymphs (auto) 1.44, Nucleated RBC % 0 04/26/20 16:45: Sodium 139, Potassium 4.1, Chloride 107, Carbon Dioxide 27.0, Anion Gap 5, BUN 8, Creatinine 0.99, Estim Creat Clear Calc 101.48, Est GFR (MDRD) Af Amer 101, Est GFR (MDRD) Non-Af 84, BUN/Creatinine Ratio 8.1 L, Glucose 108 H, Calcium 9.4, Troponin I < 0.015, TSH 1.89 04/26/20 16:49: POC Glucose 101 04/26/20 20:15: Troponin I < 0.015 04/26/20 22:30: Troponin I < 0.015 04/27/20 05:48: Triglycerides 97, Cholesterol 217 H, LDL Cholesterol 160 H, VLDL Cholesterol 19, HDL Cholesterol 38 L Current Medications Acetaminophen (Tylenol) 650 mg PO Q6H PRN PRN PRN Reason: Pain Score 1-10/Temp > 100.7 F Last Admin: 04/27/20 13:48 Dose: 650 mg Documented by: Aspirin (Aspirin, Baby) 81 mg PO DAILY@0800 BELEN Last Admin: 04/27/20 10:06 Dose: 81 mg Documented by: Dextrose (D50w Syringe) 0 gm IV X1 PRN; Protocol PRN Reason: Hypoglycemia Glucagon () 1 mg IM .X1 PRN PRN Reason: Hypoglycemia Hydralazine HCl (Apresoline Iv) 5 mg IV Q30M PRN PRN Reason: to maintain BP goals Sodium Chloride () 250 mls @ 15 mls/hr IV .[id number] PRN PRN Reason: Saline Flush Sodium Chloride () 250 mls @ 15 mls/hr IV .[id number] PRN PRN Reason: Additional IVPB Infusion Labetalol HCl (Trandate) 10 - 20 mg IV Q10M PRN PRN PRN Reason: to maintain BP goals Meclizine HCl (Antivert) 25 mg PO 4X/DAY PRN PRN PRN Reason: DIZZINESS Metoprolol Succinate (Toprol Xl (Beta Isauro)) 25 mg PO DAILY [facility] Last Admin: 04/27/20 10:06 Dose: 25 mg Documented by: Multivitamins (Multivitamin) 1 tablet PO DAILY@0800 [facility] Last Admin: 04/27/20 10:06 Dose: 1 tablet Documented by: Ondansetron HCl (Zofran) 4 mg IV Q8H PRN PRN PRN Reason: NAUSEA/VOMITING Sodium Chloride () 10 - 40 ml IV UD PRN PRN Reason: SALINE FLUSH Last Admin: 04/27/20 10:54 Dose: 10 ml Documented by: Assessment/Plan Speech and Visual Changes -MRI neg for stroke---> did show 1.2 cm mass in occipital lob and recommended MRI with contrast -contrasted MRI showed a 1.2 cm choroid plexus cyst in the occipital horn of the R ventricle--> of no consequence and no f/u needed -? seizure/complex migraine -EEG pending -[facility] neuro consultation placed -ECHO shows EF 47% with mild ANNABELLE and RVSP 23 mmHg HFrEF-compensated -EF 47% on currently ECHO, was 53% on last -unclear why pt has EF reduction -currently compensated -is on BB at home -follows with Dr. Mata as outpt (last visit 10/2019) PAF -has been in NSR since admission -not on any OAC--> suspect as [id number] was 0 -now with depressed EF is 1 -required urgent DCC in 08/2015 HPL -T Chol is 217/LDL 160/HDL 38 -would recommend diet and exercise first with repeat in 3 mos -if pt unwilling or unable would start low dose statin DVT prophylaxis -low risk Code status -Full Inpatient E&M: 39938 Subs Hosp L3
[2020-04-28] VITALS (8 sets, daily range): BP systolic 90–123; BP diastolic 55–75; PULSE 56–81; RESP 16–18; TEMP 36.4–36.5; O2SAT 97–98; BMI 26.9
--- NOTE | 2020-04-28 04:55 | NURSING ---
Pt called out to this rn that he didn't feel well. Pt stated that he got up to the bathroom to pee, went back to bed, then felt the urge to have a bm. Pt up to bathroom again for bm, stated when he was up this time felt like he was going to pass out, also like he wanted to vomit and felt cold sweats. Pt didn't end up having bm, went back to bed, still felt off and called this rn. Pts vitals taken, stated that he felt like his symptoms were subsiding. Did complete orthostatic vitals at this time, pt with no dizziness with position changes/stable vitals. Pt also denied feeling like he's constipated and needs something to help his bowels. Pt also states it feels like when he hasn't drank enough water and is dehydrated. Pt also aware to call for assistance to the bathroom next time he gets up to be safe. No rhythm changes or ectopy noted on tele monitor during this timeframe that pt would have been up to the bathroom. Pt still resting in bed, symptoms have subsided, will continue to monitor pt.
[2020-04-28] MEDS: 0.9% Normal Saline 1,000 ML 100 ML IV (06:39)
--- NOTE | 2020-04-28 08:33 | PCM.DC ---
- Discharge Diagnoses Current Active Problems: Current Active and Chronic Problems (Last Reviewed 04/26/20 @ 18:[address] Claudio Harrison DO) TIA (transient ischemic attack) (Acute) Dyspnea (Acute) You will use the following diet at home:: Cardiac Your food should be the consistency of: Regular Your liquids should be the consistency of: Regular/Thin Discharge Activity: Return to Normal Activity Allergies/Adverse Reactions: Allergies No Known Allergies Allergy (Verified 04/26/20 15:56) Medications to take at Discharge Metoprolol Succinate [Toprol Xl] 25 mg PO DAILY 04/26/20 Multivitamin [Multivitamins] 1 tab PO DAILY 04/26/20 Apixaban [Eliquis] 5 mg PO BID #60 tab 04/28/20 Aspirin [Aspirin, Baby] 81 mg PO DAILY@0800 tab.chew 04/28/20 Atorvastatin Calcium [Lipitor] 80 mg PO QHS #30 tab 04/28/20 The following prescriptions were given: Apixaban [Eliquis] 5 mg PO BID #60 tab [facility]: [id number] Atorvastatin Calcium [Lipitor] 80 mg PO QHS #30 tab Transmission Status: [id number] Primary Care Physician: Care Physician,No Primary [Primary Care Provider] - Please follow up with your Primary Care Physician in: 1-2 weeks Test Results: Test results from this visit will be discussed in further detail at your follow-up appointment, if applicable. Please Follow Up With: Michael Mata MD When: 3-4 weeks Please Follow Up With: Jarvis Dunaway MD When: 2 weeks Proposed Discharge Date: 04/28/20
[2020-04-28] MEDS: Aspirin 81 MG TAB.CHEW PO (08:47)
[2020-04-28] MEDS: Metoprolol(XL)Succ 25 MG Tablet PO (08:47)
[2020-04-28] MEDS: Multivitamins,Therapeutic Tablet 1 TABLET PO (08:47)
--- NOTE | 2020-04-28 10:12 | PHA.DC.MC ---
Pharmacy Service has performed discharge medication reconciliation and counseling for this patient. The patient's discharge medication list was reviewed for discrepancies and discrepancies were resolved. The patient was counseled on the following discharge medications and changes in medications for homegoing were reviewed. 1. ELIQUIS 2. LIPITOR The Reason for Use, instructions for use, and potential side effects were reviewed for all new medications. The patient's questions regarding all of their medications were answered. The patient was able to verbally demonstrate an understanding of their discharge medications. Home Medications Metoprolol Succinate [Toprol Xl] 25 mg PO DAILY 04/26/20 Multivitamin [Multivitamins] 1 tab PO DAILY 04/26/20 Apixaban [Eliquis] 5 mg PO BID #60 tab 04/28/20 Aspirin [Aspirin, Baby] 81 mg PO DAILY@0800 tab.chew 04/28/20 Atorvastatin Calcium [Lipitor] 80 mg PO QHS #30 tab 04/28/20
--- NOTE | 2020-04-28 10:18 | CASEMGMT ---
Addendum entered by Harika Vu 04/28/20 10:47: Call placed back to [facility] pharmacy at this time and spoke w/Kian. Cameron check on Eliquis competed. [id number] cost for pt is: $10/month. Pt made aware. Original Note: DINH RIVAS NOTE: Pt being discharged today. Eliquis has been e-scribed to [facility] pharmacy in [place]. Eliquis co-pay savings card given to pt and he called and activated the card. Call placed to [facility] and savings card applied. Richard ORTEGAN DINH CM
[2020-04-28] MEDS: APIXABAN 5 MG TABLET PO (11:07)
--- NOTE | 2020-04-28 11:36 | CASEMGMT ---
SW did not get to complete a PhQ 9 before patient was discharged. He had a TIA. Christina ZHENG MSW
--- NOTE | 2020-04-28 14:11 | DS.PCM_ITS ---
<Kelechi Vargas - Last Filed: 04/28/20 14:11> Discharge Date and Diagnosis Date of Admission: 04/26/20 Date of Discharge: 04/28/20 - Primary Discharge Diagnosis Acute Problems: Speech and vision changes secondary to TIA Paroxysmal atrial fibrillation Hyperlipidemia History of nonischemic cardiomyopathy - Secondary Discharge Diagnosis Chronic Problems: Chronic Problems (Last Reviewed 04/26/20 @ 18:[address] Claudio Harrison, DO) Paroxysmal atrial fibrillation (Chronic) Hospital Course and Treatment Imaging Results: IMAGIND TTE: Interpretation Summary Normal LV size. The estimated ejection fraction is 47 %. Normal diastology for age. Mild (1+) eccentric aortic valve insufficiency. Trivial eccentric mitral valve insufficiency. Mild tricuspid valve insufficiency. Pulmonary artery systolic pressure is 23 mmHg. Compared to prior study, there is no significant change. MRI/Brain without Contrast IMPRESSION: Suspect 1.2 cm of the mass of the occipital horn of the right lateral ventricle possibly a choroid plexus cyst. Correlation with MRI with contrast is recommended. MRI/MRA Head ONLY without Contrast IMPRESSION: Normal MRA of the head MRI/MRA Neck WITH and W/O Contrast IMPRESSION: Normal bilateral cervical carotid and vertebral arteries. 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 Consults: Neuro - SOC Operations: None Procedures: 2-D Echocardiogram Summary of Care Provided: Hospital course: The patient is a 54 year old M with past medical history of paroxysmal atrial fibrillation and nonischemic cardiomyopathy who presented to the emergency room with complaints of speech and vision changes. The patient was at work driving when he experienced new floaters in his vision and difficulty speaking. He described the speaking as being too weak to get his words out. There is also some question of whether he had some associated shortness of breath when this occurred. The patient had been on Coumadin in the past for atrial fibrillation but had not been taken off it for unclear reasons. He was admitted to the PCU and placed on telemetry. He had no events on telemetry. He had resolution of the symptoms overnight. An MRI of the brain was obtained and did not demonstrate a stroke however it did show a 1.2 cm mass of the occipital horn of the right lateral ventricle possibly choroid plexus cyst. A contrasted MRI was recommended for follow-up. This was obtained and did demonstrate a choroid plexus cyst likely of no clinical significance. MRA of the head and neck were unremarkable. Echocardiogram was negative for ASD, results as above. Tele- neurology was consulted and felt that this likely was a TIA. They recommended starting oral anticoagulation-he was placed on Eliquis given his history of paroxysmal atrial fibrillation. They also recommended given his cholesterol numbers he be started on a statin. He was placed on high-dose atorvastatin. An EEG was also obtained which was negative. TSH was normal. The patient had resolution of his symptoms and did not have any additional therapy needs. He was discharged home in stable condition. He will need follow-up with his PCP in 1 to 2 weeks, his web communications specialist in 3 to 4 weeks, and with neurology in 2 weeks. This patient was seen by Kelechi Vargas PA-C under the supervision of Doctor Yang. [] - Physical Exam Vitals/I&O's: Vital Signs Temp Pulse Resp BP Pulse Ox 97.7 F L 66 16 123/75 H 98 04/28/20 08:43 04/28/20 08:47 04/28/20 08:43 04/28/20 08:43 04/28/20 08:43 Oxygen Delivery Method Room Air Weight: 209 lb 10.554 oz Body Mass Index (BMI) 26.9 Finger Stick Blood Glucose 101 Orthostatic Vital Signs Start: 04/28/20 05:03 Freq: Status: Active Protocol: Activity Type Activity Date Activity User E-Sign Co-Sign Detail Recorded Client Recorded Date Recorded By Document 04/28/20 05:00 [facility] [id number] 04/28/20 05:04 [facility] 04/28/20 05:00 Orthostatic Vitals Standing -Blood Pressure (90/60-120/80) 104/71 -Extremity Use Left Arm -Pulse Rate (60-100) 81 Sitting -Blood Pressure (90/60-120/80) 106/64 -Extremity Use Left Arm -Pulse Rate (60-100) 71 Lying -Blood Pressure (90/60-120/80) 100/70 -Extremity Use Left Arm -Pulse Rate (60-100) 61 Intake and Output for Last 24 Hours 04/26/20 04/27/20 04/28/20 23:59 23:59 23:59 Intake Total 220 / 220 1320 / 1320 360 / 360 Balance 220 / 220 1320 / 1320 360 / 360 General: Alert, Oriented x3, Cooperative HEENT: Atraumatic, PERRLA, EOMI, Normocephalic Neck: Supple, No JVD, Negative Carotid Bruits Lungs: Clear to auscultation, Normal air movement Cardiovascular: Regular rate, No murmurs Abdomen: Bowel Sounds Present, Soft, Non Tender Extremities: No edema, Capillary Refill Less than 3 Seconds Skin: No rashes, No breakdown Musculoskeletal: No Tenderness to Palpation of Joints or Extremities Neurological: Cranial nerves II-XII grossly intact Psych/Mental Status: Normal Affect, Appropriate, Alert and oriented to time, place, person, mood and affect Discharge Diet: Low fat/ Low Cholesterol, 2000 mg Sodium Diet Discharge Activity: Return to Normal Activity Home Medications: Medications to take at Discharge Metoprolol Succinate [Toprol Xl] 25 mg PO DAILY 04/26/20 Multivitamin [Multivitamins] 1 tab PO DAILY 04/26/20 Apixaban [Eliquis] 5 mg PO BID #60 tab 04/28/20 Aspirin [Aspirin, Baby] 81 mg PO DAILY@0800 tab.chew 04/28/20 Atorvastatin Calcium [Lipitor] 80 mg PO QHS #30 tab 04/28/20 Following Prescrptions Were Given to Patient: Apixaban [Eliquis] 5 mg PO BID #60 tab [facility]: [id number] Atorvastatin Calcium [Lipitor] 80 mg PO QHS #30 tab [facility]: [id number] Primary Care Physician: Care Physician,No Primary [Primary Care Provider] - Please follow up with your Primary Care Physician in: 1-2 weeks Please Follow Up With: Michael Mata MD When: 3-4 weeks Please Follow Up With: Jarvis Dunaway MD When: 2 weeks Medical Necessity - Tobacco Use Smoking Status: Never smoker Meaningful Use Info Meaningful Use Diagnoses (Choose all that apply): None applicable <Berenice Yang - Last Filed: 04/28/20 15:58> Discharge Date and Diagnosis - Secondary Discharge Diagnosis Chronic Problems: Chronic Problems (Last Reviewed 04/26/20 @ 18:[address] Claudio Harrison, DO) Paroxysmal atrial fibrillation (Chronic) Hospital Course and Treatment Summary of Care Provided: I agree with the above and the following is a reflection of my own independent history and exam TIA -Per SOC consultation--> suspect TIA--> NOAC and ASA with h/o PAF -Dr. Mata notified of initiation of NOAC -ECHO shows EF 47% with mild ANNABELLE and RVSP 23 mmHg -F/U Neurology in 2 weeks--> information givne HFrEF-compensated -EF 47% on currently ECHO, was 53% on last -currently compensated -is on BB at home -follows with Dr. 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 Feeling well now. Anxious to go home. - Physical Exam Vitals/I&O's: Vital Signs Temp Pulse Resp BP Pulse Ox 97.7 F L 66 16 123/75 H 98 04/28/20 08:43 04/28/20 08:47 04/28/20 08:43 04/28/20 08:43 04/28/20 08:43 Oxygen Delivery Method Room Air Weight: 95.1 kg Body Mass Index (BMI) 26.9 Finger Stick Blood Glucose 101 Orthostatic Vital Signs Start: 04/28/20 05:03 Freq: Status: Active Protocol: Activity Type Activity Date Activity User E-Sign Co-Sign Detail Recorded Client Recorded Date Recorded By Document 04/28/20 05:00 [facility] [id number] 04/28/20 05:04 [facility] 04/28/20 05:00 Orthostatic Vitals Standing -Blood Pressure (90/60-120/80) 104/71 -Extremity Use Left Arm -Pulse Rate (60-100) 81 Sitting -Blood Pressure (90/60-120/80) 106/64 -Extremity Use Left Arm -Pulse Rate (60-100) 71 Lying -Blood Pressure (90/60-120/80) 100/70 -Extremity Use Left Arm -Pulse Rate (60-100) 61 Intake and Output for Last 24 Hours 04/26/20 04/27/20 04/28/20 23:59 23:59 23:59 Intake Total 1320 / 1320 360 / 360 Balance 220 220 1320 / 1320 360 / 360 General: Alert, Oriented x3, Cooperative, No apparent distress, Well developed, Well nourished HEENT: Atraumatic, PERRLA, EOMI, Normocephalic, EAC Clear Oral: Moist Mucosa, No Gingival or Mucosal Lesions/ Ulcerations Neck: Supple, No JVD, No Nodes, Trachea Midline Lungs: Clear to auscultation, Normal air movement, No rhonchi, No wheeze, No rales Cardiovascular: Regular rate, Regular Rhythm, Normal S1, Normal S2, No murmurs, No Ectopic Activity, No rub noted, No Gallop Abdomen: Bowel Sounds Present, Soft, Non Tender, Non-Distended, No hernias noted Extremities: No clubbing, No cyanosis, No edema, Capillary Refill Less than 3 Seconds, Peripheral Pulses Normal Skin: No rashes, No breakdown Musculoskeletal: No Tenderness to Palpation of Joints or Extremities, No Muscle Wasting Lymphatic: No Cervical, Supraclavicular, or Inguinal Adenopathy Neurological: Cranial nerves II-XII grossly intact, Deep Tendon Reflexes 2+/4 and Symmetrical, Neuro grossly intact, Muscle tone normal, Sensory exam intact to light touch and pain, Coordination normal Psych/Mental Status: Normal Affect, Appropriate, Alert and oriented to time, place, person, mood and affect Inpatient E&M: [id number] [facility]
== END 2020-04-28 08:34 | disposition home or self-care (01) ==
LOC: ED 16:25 → PCU 18:32
PROVIDERS: Emergency Provider Emergency Medicine; Visit Provider Internal Medicine
DX: G45.9 Transient cerebral ischemic attack, unspecified (principal); I48.0 Paroxysmal atrial fibrillation; H53.8 Other visual disturbances; R47.9 Unspecified speech disturbances; R47.1 Dysarthria and anarthria; I42.8 Other cardiomyopathies; Z79.899 Other long term (current) drug therapy; E78.5 Hyperlipidemia, unspecified; I08.3 Combined rheumatic disorders of mitral, aortic and tricuspid valves; I50.20 Unspecified systolic (congestive) heart failure
CPT/HCPCS: 36415; 70544; 70549; 70551; 70552; 80048; 80061; 82962; 84443; 84484; 85025; 93005; 93306; 95819; 96361; 96374; 96376; 97161; 97802; 99218; 99285; A9575; J7030; A4216; G0378

== ENCOUNTER → 2020-07-06 12:04 | Outpatient (CLI) | payer BC, SELFPAY ==
[2020-06-27 08:34] VITALS: BMI 27.4
== END ==
PROVIDERS: Referring Provider Physician Assistant Medical; Visit Provider Physician Assistant Medical
DX: G47.10 Hypersomnia, unspecified (principal); I48.0 Paroxysmal atrial fibrillation; R06.00 Dyspnea, unspecified
CPT/HCPCS: 95806

== ENCOUNTER → 2020-07-07 07:28 | Outpatient (CLI) | payer BC, SELFPAY ==
[2020-06-27 08:34] VITALS: BMI 27.4
[2020-07-07 08:37] LABS: Hematocrit 46.5 % (40-54); Hemoglobin 15.3 g/dL (13.0-16.5); Mean Corp Hgb Conc 32.9 g/dL (32-36); Mean Corpuscular Hgb 29.7 pg (27.0-32.0); Mean Corpuscular Volume 90.3 fL (80-94); Mean Platelet Vol. 11.1 fl (6.2-12.0); Platelet Count 180 K/mm3 (150-450); RBC Distribution Width SD 42.8 fl (35.1-43.9); Red Blood Count 5.15 M/mm3 (4.6-6.2); White Blood Count 6.3 K/mm3 (4.4-11.0)
[2020-07-07 09:15] LABS: Vitamin B12 650 pg/mL (211-911)
[2020-07-07 09:17] LABS: Hemoglobin A1c 5.5 % (3.8-5.6)
[2020-07-07 09:18] LABS: ALB/GLOB Ratio 1.1 RATIO (0.9-2.4); AST(SGOT) 18 U/L (15-37); Alanine Aminotransfer ALT/SGPT 43 U/L (16-61); Alkaline Phosphatase 84 U/L (45-117); Anion Gap 3 (5-15); BUN 17 mg/dL (7-18); BUN/Creat Ratio 16.7 RATIO (10-20); Calcium,Total 9.9 mg/dL (8.5-10.1); Chloride 105 mmol/L (98-107); Creatinine, Serum 1.02 mg/dL (0.70-1.30); EST Glomerular Filtration Rate 81 mL/min (>60); Est Glom Filt Rate - Afr Amer 98 mL/min (>60); Globulin 3.5 g/dL (2.2-4.2); Glucose 93 mg/dL (74-106); Potassium 4.4 mmol/L (3.5-5.1); Protein, Total 7.5 g/dL (6.4-8.2); Sodium Level 139 mmol/L (136-145)
== END ==
PROVIDERS: Referring Provider Nurse Practitioner Family; Visit Provider Nurse Practitioner Family
DX: R73.9 Hyperglycemia, unspecified (principal); R53.83 Other fatigue
CPT/HCPCS: 36415; 80053; 82607; 83036; 85027

== ENCOUNTER → 2020-08-01 08:45 | Outpatient (CLI) | payer BC, SELFPAY ==
[2020-07-20 14:07] VITALS: BMI 27.4
--- NOTE | 2020-08-01 15:36 | PFTCOMP_ITS ---
COMPLETE PULMONARY FUNCTION TEST INTERPRETATION Brief HPI: Patient is a 55 year old male, currently under the care of Jenny Puri, who presents to [facility] for complete pulmonary function tests secondary to diagnosis of dyspnea. Respiratory therapist reports good effort and reproducible results. Interpretation: Forced expiration spirometry shows no large airways obstructive ventilatory defect with an FEV1 of 100% predicted. There is no significant bronchodilator response by strict ATS criteria. Spirograms are of good quality and plateau normally. The respiratory flow volume loop shows a normal pattern. Lung volumes by body plethysmography show an elevated total lung capacity at 8.94 L, 116% predicted. All other lung volumes are increased symmetrically. Diffusion capacity by carbon monoxide is normal at 101% predicted. The airway resistance is normal. No previous pulmonary function tests were available for review. Impression: Grossly normal pulmonary function testing.
== END ==
LOC: PSN 08:46
PROVIDERS: Referring Provider Nurse Practitioner Acute Care; Visit Provider Nurse Practitioner Acute Care
CPT/HCPCS: 94060; 94726; 94729

== ENCOUNTER → 2020-08-07 20:09 | Outpatient (CLI) | payer BC, SELFPAY ==
[2020-07-20 14:07] VITALS: BMI 27.4
== END ==
LOC: SL 20:09
PROVIDERS: Referring Provider Nurse Practitioner Acute Care; Visit Provider Nurse Practitioner Acute Care
DX: G47.33 Obstructive sleep apnea (adult) (pediatric) (principal)
CPT/HCPCS: 95810

== ENCOUNTER → 2020-08-29 12:35 | Outpatient (CLI) | payer BC, SELFPAY ==
[2020-07-20 14:07] VITALS: BMI 27.4
== END ==
PROVIDERS: Visit Provider Nurse Practitioner Acute Care
DX: G47.33 Obstructive sleep apnea (adult) (pediatric) (principal)

== ENCOUNTER → 2020-09-07 14:07 | Outpatient (CLI) | payer BC, SELFPAY ==
[2020-07-20 14:07] VITALS: BMI 27.4
== END ==
PROVIDERS: Visit Provider Nurse Practitioner Acute Care
DX: G47.33 Obstructive sleep apnea (adult) (pediatric) (principal)

== ENCOUNTER → 2020-11-21 12:00 | Outpatient (CLI) | payer BC, SELFPAY ==
[2020-11-21 11:20] VITALS: BMI 29.8
[2020-11-21 12:10] LABS: Lyme Ab Screen Interpretation REF LAB
[2020-11-21 12:57] LABS: Erythrocyte Sedimentation Rate 8 mm/hr (0-20)
[2020-11-21 13:30] LABS: AST(SGOT) 19 U/L (15-37); Alanine Aminotransfer ALT/SGPT 36 U/L (16-61); Albumin, Serum 3.9 g/dL (3.2-5.0); Alkaline Phosphatase 69 U/L (45-117); Anion Gap 8 (5-15); BUN 14 mg/dL (7-18); Bilirubin, Direct 0.13 mg/dL (0.00-0.30); Calcium,Total 9.4 mg/dL (8.5-10.1); Chloride 105 mmol/L (98-107); EST Glomerular Filtration Rate 83 mL/min (>60); Est Glom Filt Rate - Afr Amer 100 mL/min (>60); Globulin 3.5 g/dL (2.2-4.2); Glucose 87 mg/dL (74-106); Magnesium 2.2 mg/dL (1.6-2.6); Potassium 4.3 mmol/L (3.5-5.1); Protein, Total 7.4 g/dL (6.4-8.2); Sodium Level 138 mmol/L (136-145); Thyroid Stim Hormone (TSH) 1.94 uIU/mL (0.358-3.74)
[2020-11-21 13:32] LABS: CPK Total, Creatine Kinase 106 U/L (39-308); Thyroid Stim Hormone (TSH) 1.96 uIU/mL (0.358-3.74)
[2020-11-22 17:17] LABS: ANTINUCLEAR ANTIBODIES DIRECT Negative (Negative)
[2020-11-22 20:16] LABS: Lyme Scn Total Ab w/Rflx <0.91 ISR (0.00-0.90); Myoglobin, Serum 35 ng/mL (28-72)
== END ==
PROVIDERS: Internal Medicine Cardiovascular Disease; Referring Provider Psychiatry & Neurology Neurology; Visit Provider Psychiatry & Neurology Neurology
DX: I48.0 Paroxysmal atrial fibrillation (principal); R53.83 Other fatigue; Z86.73 Personal history of transient ischemic attack (TIA), and cerebral infarction without residual deficits; I42.9 Cardiomyopathy, unspecified
CPT/HCPCS: 36415; 80048; 80076; 82550; 83735; 83874; 84443; 85652; 86038; 86225; 86235; 86618

== ENCOUNTER 2021-02-22 11:56 | Emergency (ER) | payer BC, SELFPAY ==
[2021-02-22 11:57] VITALS: BP 122/91; PULSE 71; RESP 16; TEMP 36.2; O2SAT 97; BMI 26.9; BMI 27.4
--- NOTE | 2021-02-22 12:10 | RAD_ITS ---
STUDY: X-RAY CHEST REASON FOR EXAM: Male, 55 years old. Chest pain TECHNIQUE: Single AP portable view of the chest. COMPARISON: Comparison is made with prior study dated 10/02/2017. FINDINGS: EKG electrodes are seen. The lungs are clear and expanded. There is no demonstrated pleural abnormality. Normal size heart. Normal mediastinum and meenakshi. Normal visualized pulmonary arteries. Normal visualized aortic arch and descending thoracic aorta. Normal visualized thoracic spine. Normal visualized ribs, clavicles, and shoulders. There is no demonstrated abnormality of the visualized soft tissue structures of the upper abdomen. RAD/Chest 1 View (Portable) IMPRESSION: Normal x-ray examination of the chest. Electronically Signed: Ilan Childs MD at 13:14 EDT , Service support ,
--- NOTE | 2021-02-22 12:10 | EKG12_ITS ---
Test Reason : PALPS Blood Pressure : / mmHG Vent. Rate : 108 BPM Atrial Rate : 102 BPM P-R Int : 000 ms QRS Dur : 084 ms QT Int : 316 ms P-R-T Axes : 000 023 030 degrees QTc Int : 423 ms Atrial fibrillation with rapid ventricular response Abnormal ECG Confirmed by JEFFREY CELESTIN, BARRY ([id number]), managing editor KRUPA VIEIRA ([id number]) on 02/26/2021 12:29:38 PM Referred By: ANJU Confirmed By:BARRY MURPHY MD
--- NOTE | 2021-02-22 12:11 | ED.VIS.CHEST ---
HPI <Dr. Hemant Appiah DO - Last Filed: 02/22/21 17:27> History of Present Illness Chief Complaint: Palpitations Narrative Narrative: 55-year-old male with history of cardiomyopathy and atrial fibrillation currently on metoprolol 12.5 mg extended release daily. He states that he used to see Dr. Mata. Dr. Mata had him on 25 mg of extended release metoprolol daily. Patient states that he went to [facility] and he wanted to get a second opinion. The community recreation coordinator there told him he was on too high of a dose as he is presenting with near syncope. Patient was then switched to 12.5 mg about a month ago. He was wearing a Holter monitor up until the day before yesterday which did not appear to have any events. Patient states that last evening he was eating ice cream and started to have palpitations that felt like his heart was racing. He states his symptoms have come and gone since then. PFSH <Dr. Hemant Appiah DO - Last Filed: 02/22/21 17:27> [facility] Medical History Cardiomyopathy Non-ischemic cardiomyopathy Paroxysmal atrial fibrillation TIA (transient ischemic attack) (04/26/20) Home Medications apixaban 5 mg tablet 5 mg PO BID #60 tab 05/18/20 [Rx Last Taken Unknown] metoprolol succinate 25 mg tablet,extended release 24 hr 25 mg PO DAILY #30 tab 05/18/20 [Rx Last Taken Unknown] lisinopril 5 mg tablet 5 mg PO DAILY #90 tab 11/21/20 [Rx Last Taken Unknown] omega-3 fatty acids 1,000 mg capsule 1,000 mg PO DAILY 01/11/21 [History Last Taken Unknown] Allergy/AdvReac Type Severity Reaction Status Date / Time No Known Allergies Allergy Verified 02/22/21 11:59 Family History Other Heart disease Hypertension Surgical History History of cardioversion (09/08/15) Social History Smoking Status: Never smoker alcohol intake: former ROS <Dr. Hemant Appiah DO - Last Filed: 02/22/21 17:27> ROS ED Constitutional Constitutional ED: Denies chills, fever(s) or sweats Eyes Eyes: Denies blurry vision or change in vision ENT ENT ED: Denies ear pain or sore throat Cardiovascular Cardiovascular: Reports palpitations, racing heartbeat and other Details: Lightheaded with ambulation ; Denies chest pain Respiratory/Chest Respiratory/Chest: Reports dyspnea; Denies cough or sputum Gastrointestinal Gastrointestinal: Denies abdominal pain, constipation, diarrhea, nausea or vomiting Genitourinary Genitourinary ED: Denies dysuria, hematuria or urinary frequency Musculoskeletal Musculoskeletal: Denies arthralgias, myalgias or neck pain Integumentary Denies abscess, Abrasions or rash Neurologic Neurologic: Denies headache(s), paresthesias or weakness Psychiatric Psychiatric: Denies anxiety, depression, suicidal ideation or suicidal thoughts Endocrine Endocrinology: Denies polydipsia or polyuria EXAM <Dr. Hemant Appiah DO - Last Filed: 02/22/21 17:27> Physical Exam Const Vital Signs: 02/22/21 11:57 02/22/21 12:23 02/22/21 13:59 Temperature 97.2 F L Temperature Source Temporal Pulse Rate 71 104 H Respiratory Rate 16 16 Respiratory Effort Normal Non-Labored Blood Pressure 122/91 H 108/88 H Blood Pressure Mean 101 94 Pulse Ox 97 97 Oxygen Delivery Method Room Air Room Air Room Air 02/22/21 15:49 Temperature Temperature Source Pulse Rate 103 H Respiratory Rate 15 Respiratory Effort Blood Pressure 116/82 H Blood Pressure Mean 93 Pulse Ox 98 Oxygen Delivery Method Room Air Positive well nourished and well developed General Appearance ED: well developed HEENT normocephalic and atraumatic Eyes PERRL and EOMs intact bilaterally General Eye ED: Negative for pale conjunctiva Chest Wall inspection of chest normal and palpation of chest normal Resp normal respiratory effort and clear to auscultation bilaterally Effort and Inspection: respiratory distress Cardio regular rate and regular rhythm Extremity normal to inspection General Extremety ED: Negative for edema General Extremity: Negative for edema Neuro oriented x3 and CN's II-XII intact bilaterally Sensorium / Orientation: awake and alert Psych mental status grossly normal Attitude: No agitated Mood & Affect: Negative for anxious Skin no rashes or lesions noted and no wounds <Dr. Michael Mata MD - Last Filed: 02/22/21 17:19> Physical Exam Const Vital Signs: 02/22/21 11:57 02/22/21 12:23 02/22/21 13:59 Temperature 97.2 F L Temperature Source Temporal Pulse Rate 71 104 H Respiratory Rate 16 16 Respiratory Effort Normal Non-Labored Blood Pressure 122/91 H 108/88 H Blood Pressure Mean 101 94 Pulse Ox 97 97 Oxygen Delivery Method Room Air Room Air Room Air 02/22/21 15:49 Temperature Temperature Source Pulse Rate 103 H Respiratory Rate 15 Respiratory Effort Blood Pressure 116/82 H Blood Pressure Mean 93 Pulse Ox 98 Oxygen Delivery Method Room Air [facility] <Dr. Hemant Appiah DO - Last Filed: 02/22/21 17:27> [facility] Lab Data Labs: Laboratory Results - last 24 hr 02/22/21 02/22/21 12:20 12:20 WBC 6.6 RBC 5.98 Hgb 17.2 H Hct 52.9 MCV 88.5 MCH 28.8 MCHC 32.5 RDW Std Deviation 42.7 RDW Coeff of Cher 13.2 Plt Count 222 MPV 10.3 Immature Gran % (Auto) 0.500 Neut % (Auto) 54.7 Lymph % (Auto) 29.3 [place] % (Auto) 10.8 H Eos % (Auto) 3.8 Baso % (Auto) 0.9 Absolute Neuts (auto) 3.6 Absolute Lymphs (auto) 1.93 Nucleated RBC % 0 Sodium 137 Potassium 4.4 Chloride 102 Carbon Dioxide 31.0 Anion Gap 4 L BUN 14 Creatinine 1.05 Estim Creat Clear Calc 94.60 Est GFR (MDRD) Af Amer 95 Est GFR (MDRD) Non-Af 78 BUN/Creatinine Ratio 13.3 Glucose 102 Calcium 9.8 Magnesium 2.2 Troponin I < 0.015 Radiography Diagnostic Testing: Radiology Impression Chest X-Ray 02/22/21 12:10 IMPRESSION: Normal x-ray examination of the chest. Electronically Signed: Ilan Childs MD at 13:14 EDT , Service support , <Dr. Michael Mata MD - Last Filed: 02/22/21 17:19> [facility] Lab Data Labs: Laboratory Results - last 24 hr 02/22/21 02/22/21 12:20 12:20 WBC 6.6 RBC 5.98 Hgb 17.2 H Hct 52.9 MCV 88.5 MCH 28.8 MCHC 32.5 RDW Std Deviation 42.7 RDW Coeff of Cher 13.2 Plt Count 222 MPV 10.3 Immature Gran % (Auto) 0.500 Neut % (Auto) 54.7 Lymph % (Auto) 29.3 [place] % (Auto) 10.8 H Eos % (Auto) 3.8 Baso % (Auto) 0.9 Absolute Neuts (auto) 3.6 Absolute Lymphs (auto) 1.93 Nucleated RBC % 0 Sodium 137 Potassium 4.4 Chloride 102 Carbon Dioxide 31.0 Anion Gap 4 L BUN 14 Creatinine 1.05 Estim Creat Clear Calc 94.60 Est GFR (MDRD) Af Amer 95 Est GFR (MDRD) Non-Af 78 BUN/Creatinine Ratio 13.3 Glucose 102 Calcium 9.8 Magnesium 2.2 Troponin I < 0.015 Radiography Diagnostic Testing: Radiology Impression Chest X-Ray 02/22/21 12:10 IMPRESSION: Normal x-ray examination of the chest. Electronically Signed: Ilan Childs MD at 13:14 EDT , Service support , Discharge Plan Triage Chief Complaint: Palpitations ED Provider: Hemant Appiah Dx/Rx/DC Orders Instructions: ED AFIB Prescriptions: No Action lisinopril 5 mg tablet 5 mg PO DAILY Qty: 90 RF: 3 apixaban 5 mg tablet 5 mg PO BID Qty: 60 RF: 11 metoprolol succinate 25 mg tablet extended release 24 hr 25 mg PO DAILY Qty: 30 RF: 11 omega-3 fatty acids [Fish Oil Concentrate] 1,000 mg capsule 1,000 mg PO DAILY RF: 0 Primary Care Provider: Care Physician,No Primary Referrals: Care Physician,No Primary [Primary Care Provider] - Disposition Disposition: Home, self care Discharge Date/Time: 02/22/21 16:05
[2021-02-22 12:34] LABS: Absolute Lymphocyte Count 1.93 X10^3/uL (0.83-4.51); Absolute Neutrophil Count 3.6 X10^3/uL (2.0-7.7); Basophil# 0.06 X10^3/uL; Basophil% 0.9 % (0-1); Eosinophil# 0.25 X10^3/uL; Eosinophils% 3.8 % (0-5); Hematocrit 52.9 % (40-54); Hemoglobin 17.2 g/dL (13.0-16.5); Lymphocyte # 1.93 X10^3/ul (0.83-4.51); Lymphocyte % 29.3 % (19-41); Mean Corp Hgb Conc 32.5 g/dL (32-36); Mean Corpuscular Hgb 28.8 pg (27.0-32.0); Mean Corpuscular Volume 88.5 fL (80-94); Mean Platelet Vol. 10.3 fl (6.2-12.0); Monocyte# 0.71 X10^3/uL; Monocyte% 10.8 % (0-10); NRBC Flagged by Analyzer 0 % (0-5); Neutrophil # 3.61 X10^3/uL (2.7-7.7); Neutrophil % 54.7 % (47-70); Platelet Count 222 K/mm3 (150-450); RBC Distribution Width CV 13.2 % (11.6-14.6); RBC Distribution Width SD 42.7 fl (35.1-43.9); Red Blood Count 5.98 M/mm3 (4.6-6.2); White Blood Count 6.6 K/mm3 (4.4-11.0)
[2021-02-22 12:47] LABS: Anion Gap 4 (5-15); BUN 14 mg/dL (7-18); BUN/Creat Ratio 13.3 RATIO (10-20); Calcium,Total 9.8 mg/dL (8.5-10.1); Chloride 102 mmol/L (98-107); Creatinine, Serum 1.05 mg/dL (0.70-1.30); EST Glomerular Filtration Rate 78 mL/min (>60); Est Glom Filt Rate - Afr Amer 95 mL/min (>60); Glucose 102 mg/dL (74-106); Magnesium 2.2 mg/dL (1.6-2.6); Potassium 4.4 mmol/L (3.5-5.1); Sodium Level 137 mmol/L (136-145)
[2021-02-22 13:59] VITALS: BP 108/88; PULSE 104; RESP 16; O2SAT 97
--- NOTE | 2021-02-22 14:27 | EDS_ITS ---
HPI <Dr. Hemant Appiah DO - Last Filed: 02/22/21 15:55> History of Present Illness Informant: patient Narrative Narrative: 55-year-old male with history of cardiomyopathy, atrial fibrillation presenting with palpitations. He denies out right chest pain. He states that he wore a Holter monitor and had just turned it in the day before he started having palpitations which is yesterday. He states it started after he was eating ice cream at night. It was intermittent and he felt a little bit short of breath when he was having palpitations. Patient is on Eliquis and metoprolol 25 mg extended release daily. He states that he used to see Dr. Mata for his atrial fibrillation but decided to get a second opinion from Dr. Bah at [facility]. Dr. Bah told him his metoprolol dose was too high when he presented to him with episodes of near syncope. This was changed to 12.5 mg of the extended release daily. Patient states it was working up until last night. PFSH <Dr. Hemant Appiah DO - Last Filed: 02/22/21 15:55> [facility] Medical History Cardiomyopathy Non-ischemic cardiomyopathy Paroxysmal atrial fibrillation TIA (transient ischemic attack) (04/26/20) Home Medications apixaban 5 mg tablet 5 mg PO BID #60 tab 05/18/20 [Rx Last Taken Unknown] metoprolol succinate 25 mg tablet,extended release 24 hr 25 mg PO DAILY #30 tab 05/18/20 [Rx Last Taken Unknown] lisinopril 5 mg tablet 5 mg PO DAILY #90 tab 11/21/20 [Rx Last Taken Unknown] omega-3 fatty acids 1,000 mg capsule 1,000 mg PO DAILY 01/11/21 [History Last Taken Unknown] Allergy/AdvReac Type Severity Reaction Status Date / Time No Known Allergies Allergy Verified 02/22/21 11:59 Family History Other Heart disease Hypertension Surgical History History of cardioversion (09/08/15) Social History Smoking Status: Never smoker alcohol intake: former ROS <Dr. Hemant Appiah DO - Last Filed: 02/22/21 15:55> ROS ED Constitutional Constitutional ED: Denies chills, fever(s) or sweats Eyes Eyes: Denies blurry vision or change in vision ENT ENT ED: Denies ear pain or sore throat Cardiovascular Cardiovascular: Reports palpitations and racing heartbeat; Denies chest pain Respiratory/Chest Respiratory/Chest: Denies cough, dyspnea or sputum Gastrointestinal Gastrointestinal: Denies abdominal pain, constipation, diarrhea, nausea or vomiting Genitourinary Genitourinary ED: Denies dysuria, hematuria or urinary frequency Musculoskeletal Musculoskeletal: Denies arthralgias, myalgias or neck pain Integumentary Denies abscess, Abrasions or rash Neurologic Neurologic: Denies headache(s), paresthesias or weakness Psychiatric Psychiatric: Denies anxiety, depression, suicidal ideation or suicidal thoughts Endocrine Endocrinology: Denies polydipsia or polyuria EXAM <Dr. Hemnat Appiah, - Last Filed: 02/22/21 15:55> Physical Exam Const Vital Signs: 02/22/21 11:57 02/22/21 12:23 02/22/21 13:59 Temperature 97.2 F L Temperature Source Temporal Pulse Rate 71 104 H Respiratory Rate 16 16 Respiratory Effort Normal Non-Labored Blood Pressure 122/91 H 108/88 H Blood Pressure Mean 101 94 Pulse Ox 97 97 Oxygen Delivery Method Room Air Room Air Room Air 02/22/21 15:49 Temperature Temperature Source Pulse Rate 103 H Respiratory Rate 15 Respiratory Effort Blood Pressure 116/82 H Blood Pressure Mean 93 Pulse Ox 98 Oxygen Delivery Method Room Air <Dr. Michael Mata MD - Last Filed: 02/22/21 17:20> Physical Exam Const Vital Signs: 02/22/21 11:57 02/22/21 12:23 02/22/21 13:59 Temperature 97.2 F L Temperature Source Temporal Pulse Rate 71 104 H Respiratory Rate 16 16 Respiratory Effort Normal Non-Labored Blood Pressure 122/91 H 108/88 H Blood Pressure Mean 101 94 Pulse Ox 97 97 Oxygen Delivery Method Room Air Room Air Room Air 02/22/21 15:49 Temperature Temperature Source Pulse Rate 103 H Respiratory Rate 15 Respiratory Effort Blood Pressure 116/82 H Blood Pressure Mean 93 Pulse Ox 98 Oxygen Delivery Method Room Air MDM <Dr. Hemant Appiah DO - Last Filed: 02/22/21 15:55> MDM MDM Narrative Medical decision making narrative: 54-year-old male presenting with palpitations. When I initially examined him his heart rate was 55. This did go up to 70 and on his EKG interpreted by myself shows atrial fibrillation of 108 bpm without any ischemic changes. Patient has had palpitations while he is in the ED. He does range from 55-1 30 at times. He does not have any chest pain. His lab work-up is normal. Chest x-ray is interpreted by myself shows no acute cardiopulmonary process. I did speak with his metal riveter Dr. Bah who recommended the patient start taking 12.5 mg of his extended release medication twice a day. Dr. Bah said that he would reach out to him and bring him into the office within the next day or 2. Patient was amenable to this plan. He is discharged home in stable condition. Impression: 1. Atrial fibrillation Lab Data Attestation: I reviewed the patient's lab results. Labs: Laboratory Results - last 24 hr 02/22/21 02/22/21 12:20 12:20 WBC 6.6 RBC 5.98 Hgb 17.2 H Hct 52.9 MCV 88.5 MCH 28.8 MCHC 32.5 RDW Std Deviation 42.7 RDW Coeff of Cher 13.2 Plt Count 222 MPV 10.3 Immature Gran % (Auto) 0.500 Neut % (Auto) 54.7 Lymph % (Auto) 29.3 [place] % (Auto) 10.8 H Eos % (Auto) 3.8 Baso % (Auto) 0.9 Absolute Neuts (auto) 3.6 Absolute Lymphs (auto) 1.93 Nucleated RBC % 0 Sodium 137 Potassium 4.4 Chloride 102 Carbon Dioxide 31.0 Anion Gap 4 L BUN 14 Creatinine 1.05 Estim Creat Clear Calc 94.60 Est GFR (MDRD) Af Amer 95 Est GFR (MDRD) Non-Af 78 BUN/Creatinine Ratio 13.3 Glucose 102 Calcium 9.8 Magnesium 2.2 Troponin I < 0.015 Radiography Diagnostic Testing: Radiology Impression Chest X-Ray 02/22/21 12:10 IMPRESSION: Normal x-ray examination of the chest. Electronically Signed: Ilan Childs MD at 13:14 EDT , Service support , <Dr. Michael Mata MD - Last Filed: 02/22/21 17:20> [facility] Lab Data Labs: Laboratory Results - last 24 hr 02/22/21 02/22/21 12:20 12:20 WBC 6.6 RBC 5.98 Hgb 17.2 H Hct 52.9 MCV 88.5 MCH 28.8 MCHC 32.5 RDW Std Deviation 42.7 RDW Coeff of Cher 13.2 Plt Count 222 MPV 10.3 Immature Gran % (Auto) 0.500 Neut % (Auto) 54.7 Lymph % (Auto) 29.3 [place] % (Auto) 10.8 H Eos % (Auto) 3.8 Baso % (Auto) 0.9 Absolute Neuts (auto) 3.6 Absolute Lymphs (auto) 1.93 Nucleated RBC % 0 Sodium 137 Potassium 4.4 Chloride 102 Carbon Dioxide 31.0 Anion Gap 4 L BUN 14 Creatinine 1.05 Estim Creat Clear Calc 94.60 Est GFR (MDRD) Af Amer 95 Est GFR (MDRD) Non-Af 78 BUN/Creatinine Ratio 13.3 Glucose 102 Calcium 9.8 Magnesium 2.2 Troponin I < 0.015 Radiography Diagnostic Testing: Radiology Impression Chest X-Ray 02/22/21 12:10 IMPRESSION: Normal x-ray examination of the chest. Electronically Signed: Ilan Childs MD at 13:14 EDT , Service support , Discharge Plan Triage Chief Complaint: Palpitations ED Provider: Hemant Appiah Dx/Rx/DC Orders Instructions: ED AFIB Prescriptions: No Action lisinopril 5 mg tablet 5 mg PO DAILY Qty: 90 RF: 3 apixaban 5 mg tablet 5 mg PO BID Qty: 60 RF: 11 metoprolol succinate 25 mg tablet extended release 24 hr 25 mg PO DAILY Qty: 30 RF: 11 omega-3 fatty acids [Fish Oil Concentrate] 1,000 mg capsule 1,000 mg PO DAILY RF: 0 Primary Care Provider: Care Physician,No Primary Referrals: Care Physician,No Primary [Primary Care Provider] - Disposition Disposition: Home, self care Discharge Date/Time: 02/22/21 16:05
[2021-02-22 15:49] VITALS: BP 116/82; PULSE 103; RESP 15; O2SAT 98
== END 2021-02-22 16:05 | disposition home or self-care (01) ==
PROVIDERS: Emergency Provider Student in an Organized Health Care Education/Training Program
DX: I48.0 Paroxysmal atrial fibrillation (principal); I42.8 Other cardiomyopathies; Z86.73 Personal history of transient ischemic attack (TIA), and cerebral infarction without residual deficits; Z79.01 Long term (current) use of anticoagulants; Z79.899 Other long term (current) drug therapy
CPT/HCPCS: 71045; 80048; 83735; 84484; 85025; 93005; 99284; A4216

== ENCOUNTER 2021-02-26 10:19 | Emergency (ER) | payer BC, SELFPAY ==
[2021-02-22 11:57] VITALS: BMI 26.9
[2021-02-26] VITALS (9 sets, daily range): BP systolic 92–147; BP diastolic 68–104; PULSE 90–150; RESP 13–26; TEMP 36.5; O2SAT 95–99; BMI 25.9
--- NOTE | 2021-02-26 10:34 | EKG12_ITS ---
Test Reason : CP Blood Pressure : / mmHG Vent. Rate : 151 BPM Atrial Rate : 092 BPM P-R Int : 128 ms QRS Dur : 088 ms QT Int : 284 ms P-R-T Axes : 000 070 010 degrees QTc Int : 450 ms Atrial fibrillation Confirmed by JUSTINA CELESTIN, NAN ([id number]), assignment desk editor KRUPA VIEIRA ([id number]) on 02/28/2021 8:19:37 AM Referred By: AYESHA Confirmed By:NAN HORN MD
[2021-02-26 10:42] LABS: Absolute Lymphocyte Count 2.49 X10^3/uL (0.83-4.51); Absolute Neutrophil Count 4.8 X10^3/uL (2.0-7.7); Basophil# 0.06 X10^3/uL; Basophil% 0.7 % (0-1); Eosinophil# 0.15 X10^3/uL; Eosinophils% 1.8 % (0-5); Hematocrit 55.3 % (40-54); Lymphocyte # 2.49 X10^3/ul (0.83-4.51); Lymphocyte % 30.2 % (19-41); Mean Corp Hgb Conc 33.1 g/dL (32-36); Mean Corpuscular Hgb 28.8 pg (27.0-32.0); Mean Corpuscular Volume 86.9 fL (80-94); Mean Platelet Vol. 10.6 fl (6.2-12.0); Monocyte# 0.73 X10^3/uL; Monocyte% 8.9 % (0-10); NRBC Flagged by Analyzer 0 % (0-5); Neutrophil # 4.79 X10^3/uL (2.7-7.7); Neutrophil % 58.2 % (47-70); Platelet Count 260 K/mm3 (150-450); RBC Distribution Width CV 13.3 % (11.6-14.6); RBC Distribution Width SD 42.2 fl (35.1-43.9); Red Blood Count 6.36 M/mm3 (4.6-6.2); White Blood Count 8.2 K/mm3 (4.4-11.0)
[2021-02-26 10:47] LABS: Differential Indicated SCAN CRITERIA MET; Hemoglobin 18.3 g/dL (13.0-16.5)
[2021-02-26] MEDS: 0.9% Normal Saline 1,000 ML 150 ML IV (10:55)
--- NOTE | 2021-02-26 11:00 | RAD_ITS ---
STUDY: X-RAY CHEST REASON FOR EXAM: Male, 55 years old. Dyspnea dyspnea on exertion TECHNIQUE: Single AP portable view of the chest. COMPARISON: Comparison is made with prior study dated 02/22/2021. FINDINGS: EKG electrodes are seen. Hyperinflation. Decreased bronchovascular markings suggestive of COPD. There is no demonstrated pleural abnormality. Normal size heart. Normal mediastinum and meenakshi. Normal visualized pulmonary arteries. Normal visualized aortic arch and descending thoracic aorta. Normal visualized thoracic spine. Normal visualized ribs, clavicles, and shoulders. There is no demonstrated abnormality of the visualized soft tissue structures of the upper abdomen. RAD/Chest 1 View (Portable) IMPRESSION: Findings suggestive of COPD Electronically Signed: Ilan Childs MD at 11:43 EDT , Service support ,
[2021-02-26 11:06] LABS: Anion Gap 7 (5-15); BUN 23 mg/dL (7-18); BUN/Creat Ratio 16.8 RATIO (10-20); Calcium,Total 9.9 mg/dL (8.5-10.1); Chloride 102 mmol/L (98-107); Creatinine, Serum 1.37 mg/dL (0.70-1.30); EST Glomerular Filtration Rate 58 mL/min (>60); Est Glom Filt Rate - Afr Amer 70 mL/min (>60); Glucose 103 mg/dL (74-106); Potassium 4.2 mmol/L (3.5-5.1); Sodium Level 135 mmol/L (136-145)
--- NOTE | 2021-02-26 11:22 | EDS_ITS ---
HPI History of Present Illness Chief Complaint: Chest Pain Informant: patient Onset/Context/Timing Onset: Days Context: Sudden Onset Timing: Continuous Quality: Rapid heartbeat Location: Chest and complains of tightness Current Severity: Mild Maximum Severity: Moderate Worsened by: Activity Relieved by: Nothing Associated Symptoms Associated Symptoms: Dyspnea and dyspnea on exertion Narrative Narrative: Patient is a 55-year-old male with history of atrial fibrillation. He reports compliance with his medication. He was seen last week. At that time he requested to follow-up with Dr. Bah pneumatic tube operator at [facility]. He now presents requesting Dr. Devendra chu. Dr. Mata was paged. He states that Dr. Bah is patient's physician. Patient denies fever, chills night sweats. Patient denies ocular, visual auditory symptoms. He denies black or maroon-colored stool. He denies nausea, vomiting or diarrhea. He denies any urologic symptoms. He denies neurologic symptoms. Patient states he has not eaten since last evening. He states the last time he was cardioverted was 2014. He denies leg pain, swelling discoloration. He denies history of PE or DVT. Prior similar symptoms: Yes Recent Illness/Hospitalization: [facility] Medical History (Updated 02/26/21 @ 12:[address] Gerardo Joy MD) Cardiomyopathy Non-ischemic cardiomyopathy Paroxysmal atrial fibrillation TIA (transient ischemic attack) (04/26/20) Home Medications apixaban 5 mg tablet 5 mg PO BID #60 tab 05/18/20 [Rx Last Taken Unknown] metoprolol succinate 25 mg tablet,extended release 24 hr 25 mg PO DAILY #30 tab 05/18/20 [Rx Last Taken Unknown] lisinopril 5 mg tablet 5 mg PO DAILY #90 tab 11/21/20 [Rx Last Taken Unknown] Allergy/AdvReac Type Severity Reaction Status Date / Time No Known Allergies Allergy Verified 02/26/21 10:20 Family History Other Heart disease Hypertension Surgical History History of cardioversion (09/08/15) Social History (Updated 02/26/21 @ 11:[address] Gerardo Joy MD) Smoking Status: Never smoker alcohol intake: former substance use type: does not use ROS ROS ED Constitutional Constitutional ED: Denies chills, fever(s), subjective, sweats or weight loss Eyes Eyes: Denies blurry vision, change in vision or diplopia ENT ENT ED: Denies ear pain, rhinorrhea or sore throat Cardiovascular Cardiovascular: Reports palpitations and racing heartbeat; Denies chest pain, orthopnea or paroxysmal nocturnal dyspnea Respiratory/Chest Respiratory/Chest: Reports dyspnea and dyspnea on exertion; Denies cough, orthopnea or paroxysmal nocturnal dyspnea Gastrointestinal Gastrointestinal: Denies abdominal pain, constipation, diarrhea, melena, nausea, vomiting or other Genitourinary Genitourinary ED: Denies dysuria or urinary frequency Musculoskeletal Musculoskeletal: Denies arthralgias, back pain, myalgias or neck pain Integumentary Denies abscess or rash Neurologic Neurologic: Denies headache(s) or weakness Psychiatric Psychiatric: Denies anxiety or depression Endocrine Endocrinology: Denies polydipsia or polyuria EXAM Physical Exam Const Vital Signs: 02/26/21 10:22 02/26/21 11:24 02/26/21 11:25 Temperature 97.7 F L Temperature Source Oral Pulse Rate 146 H 132 H 144 H Pulse Rate [1 (Initial Baseline)] Pulse Rate [2] Respiratory Rate 18 14 18 Respiratory Rate [1 (Initial Baseline)] Respiratory Rate [2] Respiratory Effort Normal Non-Labored Respiratory Pattern Normal Blood Pressure 106/88 H 124/104 H 124/104 H Blood Pressure [1 (Initial Baseline)] Blood Pressure [2] Blood Pressure Mean 94 110 Pulse Ox 98 98 98 Oxygen Delivery Method Room Air Room Air Room Air Oxygen Delivery Method [1 (Initial Baseline)] Oxygen Delivery Method [2] Oxygen Flow Rate (L/min) Oxygen Flow Rate (L/min) [1 (Initial Baseline)] Oxygen Flow Rate (L/min) [2] 02/26/21 11:54 02/26/21 12:01 02/26/21 12:06 Temperature Temperature Source Pulse Rate 93 95 Pulse Rate [1 (Initial Baseline)] 150 H Pulse Rate [2] 94 Respiratory Rate 26 H 18 Respiratory Rate [1 (Initial Baseline)] 23 H Respiratory Rate [2] 20 H Respiratory Effort Respiratory Pattern Blood Pressure 92/70 97/72 Blood Pressure [1 (Initial Baseline)] 147/82 H Blood Pressure [2] 112/98 H Blood Pressure Mean Pulse Ox 99 95 Oxygen Delivery Method Nasal Cannula Room Air Oxygen Delivery Method [1 (Initial Baseline)] Nasal Cannula Oxygen Delivery Method [2] Nasal Cannula Oxygen Flow Rate (L/min) 2 Oxygen Flow Rate (L/min) [1 (Initial Baseline)] 2 Oxygen Flow Rate (L/min) [2] 2 02/26/21 12:11 Temperature Temperature Source Pulse Rate 90 Pulse Rate [1 (Initial Baseline)] Pulse Rate [2] Respiratory Rate 13 Respiratory Rate [1 (Initial Baseline)] Respiratory Rate [2] Respiratory Effort Respiratory Pattern Blood Pressure 98/73 Blood Pressure [1 (Initial Baseline)] Blood Pressure [2] Blood Pressure Mean Pulse Ox 95 Oxygen Delivery Method Room Air Oxygen Delivery Method [1 (Initial Baseline)] Oxygen Delivery Method [2] Oxygen Flow Rate (L/min) Oxygen Flow Rate (L/min) [1 (Initial Baseline)] Oxygen Flow Rate (L/min) [2] HEENT Reports TM's clear and moist mucous membranes Tympanic Membrane ED: Yes TM's clear Eyes PERRL and EOMs intact bilaterally General Eye ED: Negative for pale conjunctiva or scleral icterus Neck no lymphadenopathy, supple and no JVD General: Negative for tenderness Chest Wall inspection of chest normal and palpation of chest normal Resp normal respiratory effort and clear to auscultation bilaterally Cardio no murmurs Rate: tachycardic Rhythm: abnormal rhythm irregularly irregular and ectopic beats GI normal to inspection, nondistended, normoactive bowel sounds Back/Spine no CVA tenderness Cervical Spine: Negative for cervical spine tenderness Thoracic Spine / Upper Back: Negative for thoracic spinal tenderness or paraspinal muscle tenderness Extremity normal to inspection General Extremety ED: Negative for edema or tenderness General Extremity: Negative for edema Neuro oriented x3, CN's II-XII intact bilaterally and no sensory deficits noted Sensorium / Orientation: alert Motor Exam: strength 5/5 throughout Psych mental status grossly normal Skin no rashes or lesions noted and no wounds MDM MDM MDM Narrative Medical decision making narrative: Patient presents with A. fib RVR. Since he has not had anything to eat and has been compliant with Eliquis plan is cardioversion. He will undergo deep sedation using propofol and cardioversion. If successful will have patient follow-up with Dr. Bah. If not will contact Dr. Bah since he is patient's pneumatic tube operator and discussed case and recommendations. Lab Data Attestation: I reviewed the patient's lab results. Labs: Laboratory Results - last 24 hr 02/26/21 02/26/21 10:30 10:30 WBC 8.2 RBC 6.36 H Hgb 18.3 H* Hct 55.3 H MCV 86.9 MCH 28.8 MCHC 33.1 RDW Std Deviation 42.2 RDW Coeff of Cher 13.3 Plt Count 260 MPV 10.6 Immature Gran % (Auto) 0.200 Neut % (Auto) 58.2 Lymph % (Auto) 30.2 [place] % (Auto) 8.9 Eos % (Auto) 1.8 Baso % (Auto) 0.7 Absolute Neuts (auto) 4.8 Absolute Lymphs (auto) 2.49 Nucleated RBC % 0 Sodium 135 L Potassium 4.2 Chloride 102 Carbon Dioxide 26.0 Anion Gap 7 BUN 23 H Creatinine 1.37 H Estim Creat Clear Calc 72.50 Est GFR (MDRD) Af Amer 70 Est GFR (MDRD) Non-Af 58 L BUN/Creatinine Ratio 16.8 Glucose 103 Calcium 9.9 Troponin I < 0.015 Hemoglobin is 18.3 which is elevated. Creatinine slightly evaded 1.37. Troponin is normal with days of tightness in his chest. Suspect the tightness was due to atrial fibrillation with RVR. Radiography Chest X-Ray - ED: 1 View, Read by ED Physician, Read by Radiologist, Heart, No Acute Disease and Chronic Changes Diagnostic Testing: Radiology Impression Chest X-Ray 02/26/21 11:00 IMPRESSION: Findings suggestive of COPD Electronically Signed: Ilan Childs MD at 11:43 EDT , Service support , EKG Initial EKG: Interpretation: Atrial Fibrillation Comments: Ventricular rate is 151. QS duration 88 ms. QT duration 284 ms. [place] is normal. There is no evidence of acute ischemia. Follow-up EKG: Attestation: I personally reviewed and interpreted this EKG as follows: Interpretation: Sinus Rhythm Comments: Normal sinus rhythm with a ventricular rate of 94. Parable 258. QRS duration 86 ms. QT interval 342 ms. [place] is normal. There is evidence of right atrial and possibly left atrial enlargement. EKG was obtained after successful cardioversion. Procedures Other Procedures Procedure(s): 1. Deep sedation using propofol 2. Cardioversion Patient was explained risk benefits of deep sedation using propofol. He denies allergy to soy products or egg products. He is not had problems with sedation in the past. He was given opportunity ask questions and none were asked. He was informed reason for cardioversion. He understood. Again, he was given after to ask questions, and he asked none. Start time 1154 End time 1158 Monitor revealed H fibrillation with a ventricular rate varied between 146 and 158. There were apparent beats noted. Patient received a total of 90 mg of propofol. Once deep sedation was achieved he was successfully cardioverted using 200 J biphasic mode on first attempt. Patient did convert to a sinus rhythm. Monitor presently reveals a sinus rhythm with a ventricular rate of 96 with no ectopy. Discharge Plan Triage Chief Complaint: Chest Pain ED Provider: Gerardo Joy Dx/Rx/DC Orders Clinical Impression: Atrial fibrillation with rapid ventricular response, Chest pain Prescriptions: No Action lisinopril 5 mg tablet 5 mg PO DAILY Qty: 90 RF: 3 apixaban 5 mg tablet 5 mg PO BID Qty: 60 RF: 11 metoprolol succinate 25 mg tablet extended release 24 hr 25 mg PO DAILY Qty: 30 RF: 11 Primary Care Provider: Care Physician,No Primary Referrals: Care Physician,No Primary [Primary Care Provider] - Doctor,Your [STAFF PHYSICIAN] - As soon as possible Disposition Disposition: Home, self care
--- NOTE | 2021-02-26 12:04 | EKG12_ITS ---
Test Reason : REPEAT Blood Pressure : / mmHG Vent. Rate : 094 BPM Atrial Rate : 094 BPM P-R Int : 158 ms QRS Dur : 086 ms QT Int : 342 ms P-R-T Axes : 064 -05 052 degrees QTc Int : 427 ms Normal sinus rhythm Biatrial enlargement Abnormal ECG Confirmed by JUSTINA CELESTIN, NAN ([id number]), purchasing expeditor KRUPA VIEIRA ([id number]) on 02/28/2021 8:22:20 AM Referred By: AYESHA Confirmed By:NAN HORN MD
[2021-02-26] MEDS: Propofol 200 MG/20 ML Vial IV BOLUS (12:08)
--- NOTE | 2021-02-26 12:41 | ED.RN ---
THIS RN CONTACTED PT SISTER NIKITA FOR A RIDE HOME. PT SISTER REPORTS SHE WILL BE COMING TO PICK HIM UP AND STAY WITH HIM SINCE HE HAS HAD SEDATION MEDICATION. PT ALERT AND TALKING ON THE PHONE.
[2021-02-27 14:28] LABS: Pathologist Review Reviewed
== END 2021-02-26 13:25 | disposition home or self-care (01) ==
PROVIDERS: Emergency Provider Emergency Medicine
DX: I48.0 Paroxysmal atrial fibrillation (principal); I42.8 Other cardiomyopathies; Z86.73 Personal history of transient ischemic attack (TIA), and cerebral infarction without residual deficits; Z79.01 Long term (current) use of anticoagulants; Z79.899 Other long term (current) drug therapy
CPT/HCPCS: 71045; 80048; 84484; 85025; 92960; 93005; 96360; 96361; 99284; J7030

== ENCOUNTER 2021-03-01 11:56 | Observation (INO) | payer BC, SELFPAY ==
[2021-02-26 10:22] VITALS: BMI 25.9
[2021-03-01] VITALS (12 sets, daily range): BP systolic 114–166; BP diastolic 65–86; PULSE 60–80; RESP 14–18; TEMP 36.4–36.8; O2SAT 97–100; BMI 26.1; BMI 25.3
--- NOTE | 2021-03-01 12:40 | EKG12_ITS ---
Test Reason : PALPITATIONS Blood Pressure : / mmHG Vent. Rate : 070 BPM Atrial Rate : 070 BPM P-R Int : 170 ms QRS Dur : 092 ms QT Int : 376 ms P-R-T Axes : 057 001 035 degrees QTc Int : 406 ms Normal sinus rhythm Normal ECG Confirmed by JUSTINA CELESTIN, NAN ([id number]), sports editor KRUPA VIEIRA ([id number]) on 03/05/2021 2:47:41 PM Referred By: /JUAN LUIS Confirmed By:NAN HORN MD
[2021-03-01] MEDS: Aspirin 81 MG TAB.CHEW 324 MG PO (12:54)
--- NOTE | 2021-03-01 13:04 | EX.ED.DYSGE1 ---
HPI History of Present Illness Chief Complaint: Palpitations Informant: patient Narrative Narrative: 55-year-old male presenting with chest pain, shortness of breath, palpitations. This started while walking today. He felt like he may have been going in and out of A. fib. He had chest pressure associated with this. He had associated diaphoresis, nausea. He still complains of mild chest pressure but it has improved. He was seen in the emergency department on Friday and was cardioverted at that time. He is on Eliquis. [facility] Medical History (Updated 03/01/21 @ 14:[address] Teresa Faria MD) Cardiomyopathy Non-ischemic cardiomyopathy Paroxysmal atrial fibrillation TIA (transient ischemic attack) (04/26/20) Home Medications apixaban 5 mg tablet 5 mg PO BID #60 tab 05/18/20 [Rx Last Taken Unknown] metoprolol succinate 25 mg tablet,extended release 24 hr 25 mg PO DAILY #30 tab 05/18/20 [Rx Last Taken Unknown] lisinopril 5 mg tablet 5 mg PO DAILY #90 tab 11/21/20 [Rx Last Taken Unknown] Allergy/AdvReac Type Severity Reaction Status Date / Time No Known Allergies Allergy Verified 02/26/21 10:20 Family History Other Heart disease Hypertension Surgical History History of cardioversion (09/08/15) Social History (Updated 02/26/21 @ 11:[address] Gerardo Joy MD) Smoking Status: Never smoker alcohol intake: former substance use type: does not use ROS ROS ED Constitutional Constitutional ED: Denies fever(s) Eyes Eyes: Denies change in vision ENT ENT ED: Denies rhinorrhea or sore throat Cardiovascular Cardiovascular: Reports chest pain and palpitations Respiratory/Chest Respiratory/Chest: Reports dyspnea; Denies cough Gastrointestinal Gastrointestinal: Reports nausea; Denies abdominal pain, diarrhea or vomiting Genitourinary Genitourinary ED: Denies dysuria Musculoskeletal Musculoskeletal: Denies myalgias Integumentary Denies rash Neurologic Neurologic: Denies headache(s) Psychiatric Psychiatric: Denies suicidal thoughts EXAM Physical Exam Const Vital Signs: 03/01/21 11:58 03/01/21 12:02 03/01/21 12:50 Temperature 97.6 F L Temperature Source Temporal Pulse Rate 74 Respiratory Rate 14 Respiratory Effort Short of Breath Respiratory Pattern Normal Blood Pressure 116/78 Blood Pressure Mean 90 Pulse Ox 99 97 Oxygen Delivery Method Room Air Room Air 03/01/21 12:54 Temperature Temperature Source Pulse Rate 69 Respiratory Rate 18 Respiratory Effort Respiratory Pattern Blood Pressure 115/86 H Blood Pressure Mean 95 Pulse Ox 98 Oxygen Delivery Method Room Air Positive well nourished and well developed General Appearance ED: well developed HEENT Reports normocephalic and head/scalp atraumatic Eyes PERRL and EOMs intact bilaterally Neck supple General: Negative for tenderness Chest Wall inspection of chest normal Resp normal respiratory effort and clear to auscultation bilaterally Cardio regular rate and regular rhythm GI non-tender and non-distended Palpation: soft; Negative for guarding or rebound tenderness present no CVA tenderness Extremity normal to inspection General Extremety ED: Negative for edema or tenderness General Extremity: Negative for edema Neuro oriented x3 Sensorium / Orientation: alert Psych mental status grossly normal MDM MDM MDM Narrative Medical decision making narrative: Patient was given aspirin on arrival. Patient is resting comfortably on reevaluation. Will discuss with hospitalist for observation. Lab Data Attestation: I reviewed the patient's lab results. Labs: Laboratory Results - last 24 hr 03/01/21 03/01/21 11:33 11:33 WBC 5.6 RBC 5.27 Hgb 15.2 Hct 45.8 MCV 86.9 MCH 28.8 MCHC 33.2 RDW Std Deviation 41.2 RDW Coeff of Cher 13.0 Plt Count 190 MPV 11.4 Immature Gran % (Auto) 0.200 Neut % (Auto) 44.3 L Lymph % (Auto) 38.5 [place] % (Auto) 10.9 H Eos % (Auto) 5.4 H Baso % (Auto) 0.7 Absolute Neuts (auto) 2.5 Absolute Lymphs (auto) 2.15 Nucleated RBC % 0 Sodium 134 L Potassium 3.5 Chloride 102 Carbon Dioxide 26.0 Anion Gap 6 BUN 19 H Creatinine 1.08 Estim Creat Clear Calc 91.97 Est GFR (MDRD) Af Amer 92 Est GFR (MDRD) Non-Af 76 BUN/Creatinine Ratio 17.6 Glucose 103 Calcium 9.4 Troponin I < 0.015 Radiography Chest X-Ray - ED: 1 View, Read by ED Physician and Read by Radiologist Diagnostic Testing: Radiology Impression Chest X-Ray 03/01/21 13:10 IMPRESSION: Hyperinflation. The lungs are clear. Electronically Signed: Ilan Childs MD at 13:53 EDT , Service support , EKG Initial EKG: Attestation: I personally reviewed and interpreted this EKG as follows: Interpretation: Sinus Rhythm and No Acute Injury Pattern Discharge Plan Triage Chief Complaint: Palpitations ED Provider: Teresa Fraia Dx/Rx/DC Orders Clinical Impression: Chest pain Prescriptions: No Action lisinopril 5 mg tablet 5 mg PO DAILY Qty: 90 RF: 3 apixaban 5 mg tablet 5 mg PO BID Qty: 60 RF: 11 metoprolol succinate 25 mg tablet extended release 24 hr 25 mg PO DAILY Qty: 30 RF: 11 Primary Care Provider: Care Physician,No Primary Referrals: Care Physician,No Primary [Primary Care Provider] - Disposition Disposition: Acute Care Hospital [facility]
--- NOTE | 2021-03-01 13:10 | RAD_ITS ---
STUDY: X-RAY CHEST REASON FOR EXAM: 55-year-old patient with history of shortness of breath and tachycardia., TECHNIQUE: Single AP portable view of the chest. COMPARISON: Comparison is made with prior study of 02/26/2021. FINDINGS: EKG electrodes are seen. There is hyperinflation of the lungs consistent with chronic obstructive lung disease (COPD). There is no demonstrated pleural abnormality. Normal size heart. Normal mediastinum and meenakshi. Normal visualized pulmonary arteries. Normal visualized aortic arch and descending thoracic aorta. Normal visualized thoracic spine. Normal visualized ribs, clavicles, and shoulders. There is no demonstrated abnormality of the visualized soft tissue structures of the upper abdomen. RAD/Chest 1 View (Portable) IMPRESSION: Hyperinflation. The lungs are clear. Electronically Signed: Ilan Childs MD at 13:53 EDT , Service support ,
[2021-03-01 13:20] LABS: Absolute Lymphocyte Count 2.15 X10^3/uL (0.83-4.51); Absolute Neutrophil Count 2.5 X10^3/uL (2.0-7.7); Basophil# 0.04 X10^3/uL; Basophil% 0.7 % (0-1); Eosinophils% 5.4 % (0-5); Hematocrit 45.8 % (40-54); Hemoglobin 15.2 g/dL (13.0-16.5); Lymphocyte # 2.15 X10^3/ul (0.83-4.51); Lymphocyte % 38.5 % (19-41); Mean Corp Hgb Conc 33.2 g/dL (32-36); Mean Corpuscular Hgb 28.8 pg (27.0-32.0); Mean Corpuscular Volume 86.9 fL (80-94); Mean Platelet Vol. 11.4 fl (6.2-12.0); Monocyte# 0.61 X10^3/uL; Monocyte% 10.9 % (0-10); NRBC Flagged by Analyzer 0 % (0-5); Neutrophil # 2.48 X10^3/uL (2.7-7.7); Neutrophil % 44.3 % (47-70); Platelet Count 190 K/mm3 (150-450); RBC Distribution Width SD 41.2 fl (35.1-43.9); Red Blood Count 5.27 M/mm3 (4.6-6.2); White Blood Count 5.6 K/mm3 (4.4-11.0)
[2021-03-01 13:39] LABS: Anion Gap 6 (5-15); BUN 19 mg/dL (7-18); BUN/Creat Ratio 17.6 RATIO (10-20); Calcium,Total 9.4 mg/dL (8.5-10.1); Chloride 102 mmol/L (98-107); Creatinine, Serum 1.08 mg/dL (0.70-1.30); EST Glomerular Filtration Rate 76 mL/min (>60); Est Glom Filt Rate - Afr Amer 92 mL/min (>60); Estimated Creatinine Clearance 91.97 ml/min; Glucose 103 mg/dL (74-106); Potassium 3.5 mmol/L (3.5-5.1); Sodium Level 134 mmol/L (136-145)
--- NOTE | 2021-03-01 14:06 | NURSING ---
PCU OBS OLAF MOORE
--- NOTE | 2021-03-01 14:07 | HP.PCM.HOS_ITS ---
[facility] - General General Date of Admission: 03/01/21 Chief Complaint: Palpitation, chest discomfort [facility] Narrative SYED RUIZ, is a 55 M with past medical history as mentioned below presented to the emergency room because of palpitation and chest discomfort. Symptoms started today when he was walking, started feeling that his heart is beating fast and irregular and he thought that he is going in and out of A. fib. He reported associated palpitation and chest pain, this pain described as chest discomfort and sometimes pressure, associated with mild shortness of breath and dizziness as well as nausea and diaphoresis. Currently, his symptoms resolved. Patient came to the ED 3 days ago, found to be in A. fib with RVR and he was cardioverted and was discharged home. In the emergency department today, patient was in normal sinus rhythm, vital signs were stable. Routine blood work was unremarkable. Troponin was negative. EKG revealed normal sinus rhythm without evidence of acute ischemic changes or cardiac arrhythmias. Chest x-ray showed no acute findings. He is being admitted for palpitation and atypical chest pain for evaluation. [facility] Medical History (Updated 03/01/21 @ 14:[address] Adelaida Palmer MD) Cardiomyopathy Non-ischemic cardiomyopathy Paroxysmal atrial fibrillation TIA (transient ischemic attack) (04/26/20) Home Medications apixaban 5 mg tablet 5 mg PO BID #60 tab 05/18/20 [Rx Last Taken Unknown] lisinopril 5 mg tablet 5 mg PO DAILY #90 tab 11/21/20 [Rx Last Taken Unknown] metoprolol succinate 12.5 mg PO BID 03/01/21 [History Last Taken 03/01/21] multivitamin 1 tab PO DAILY 03/01/21 [History Last Taken 2 Days Ago ~02/27/21] Allergy/AdvReac Type Severity Reaction Status Date / Time No Known Allergies Allergy Verified 02/26/21 10:20 Family History Other Heart disease Hypertension no significant family history Surgical History History of cardioversion (09/08/15) Social History (Updated 02/26/21 @ 11:[address] Gerardo Joy MD) Smoking Status: Never smoker alcohol intake: former substance use type: does not use ROS Constitutional Constitutional: Denies anorexia, chills, fatigue, fever(s) or malaise Eyes Eyes: Denies blurry vision, change in eye color, change in vision, double vision or eye pain ENT HEENT: Denies ear pain, epistaxis, headache(s), nasal congestion, post nasal drip or sore throat Cardiovascular Cardiovascular: Reports lightheadedness, rapid heart rate and other Details: Chest discomfort. ; Denies chest pain, dyspnea on exertion, edema, orthopnea, palpitations, paroxysmal nocturnal dyspnea or syncope Respiratory/Chest Respiratory/Chest: Reports shortness of breath at rest; Denies cough, dyspnea, hemoptysis, productive cough, shortness of breath with exertion or wheezing Gastrointestinal Gastrointestinal: Reports nausea; Denies abdominal pain, constipation, diarrhea, hematemesis, hematochezia, melena or vomiting Genitourinary Genitourinary: Denies burning urination, dysuria, hematuria, urinary hesitancy or urinary urgency Musculoskeletal Musculoskeletal: Denies arthralgias, back pain, joint pain, joint swelling, myalgias or neck pain Neurologic Neurologic: Denies confusion, dizziness, focal weakness, headache(s), numbness, paresthesias, seizures, tingling or tremor(s) Psychiatric Psychiatric: Denies anxiety, depression, homicidal ideation or suicidal ideation Endocrine Endocrinology: Denies change in body appearance, cold intolerance, heat intolerance, polydipsia or polyuria Hematologic/Lymphatic Hematologic/Lymphatic: Reports other; Denies easy bleeding, easy bruising or lymphadenopathy Allergic/Immunologic Allergic/Immunologic: Denies itchy eyes, rhinitis, throat swelling, tongue swelling, hives, urticaria or wheezing Vital Signs Vital Signs Vital Signs: 03/01/21 11:58 03/01/21 12:02 03/01/21 12:50 Temperature 97.6 F L Temperature Source Temporal Pulse Rate 74 Respiratory Rate 14 Respiratory Effort Short of Breath Respiratory Pattern Normal Blood Pressure 116/78 Blood Pressure Mean 90 Pulse Ox 99 97 Oxygen Delivery Method Room Air Room Air 03/01/21 12:54 Temperature Temperature Source Pulse Rate 69 Respiratory Rate 18 Respiratory Effort Respiratory Pattern Blood Pressure 115/86 H Blood Pressure Mean 95 Pulse Ox 98 Oxygen Delivery Method Room Air Physical Exam Const alert, oriented x3, no apparent distress and no limitations General Appearance: cooperative, comfortable and well kempt HEENT normocephalic, head/scalp atraumatic and moist oral mucous membranes Head and Scalp: normocephalic and atraumatic Eyes PERRL, EOMs intact bilaterally, conjunctivae normal and no scleral icterus General Eye: normal appearance of both eyes Periorbital: periorbital findings normal Neck no lymphadenopathy, supple, no meningeal signs, no JVD and no carotid bruits General: trachea midline Thyroid: thyroid normal Resp normal respiratory effort, normal air movement and clear to auscultation bilaterally Auscultation: Negative for crackles, rales, rhonchi or wheezes Cardio regular rate, regular rhythm, S1 normal heart sound, S2 normal heart sound, no murmurs and no JVD Peripheral Pulses: pulses 2+ throughout GI normal to inspection, nondistended, normoactive bowel sounds, soft to palpation, non-tender and non-distended; Negative for hepatosplenomegaly Auscultation: normoactive bowel sounds Extremity normal to inspection, full ROM and no clubbing, cyanosis or edema Skin no rashes or lesions noted, no wounds, skin turgor normal and no petechiae Neuro oriented x3, CN's II-XII intact bilaterally and moves all extremities Sensorium / Orientation: alert Speech: speech normal Motor Exam: strength 5/5 throughout Psych mental status grossly normal, cooperative and affect normal Appearance: appropriate Lab / Micro Data Result Diagrams: 03/01/21 11:33 03/01/21 11:33 Labs: Laboratory Results - last 24 hr 03/01/21 03/01/21 11:33 11:33 WBC 5.6 RBC 5.27 Hgb 15.2 Hct 45.8 MCV 86.9 MCH 28.8 MCHC 33.2 RDW Std Deviation 41.2 RDW Coeff of Cher 13.0 Plt Count 190 MPV 11.4 Immature Gran % (Auto) 0.200 Neut % (Auto) 44.3 L Lymph % (Auto) 38.5 [place] % (Auto) 10.9 H Eos % (Auto) 5.4 H Baso % (Auto) 0.7 Absolute Neuts (auto) 2.5 Absolute Lymphs (auto) 2.15 Nucleated RBC % 0 Sodium 134 L Potassium 3.5 Chloride 102 Carbon Dioxide 26.0 Anion Gap 6 BUN 19 H Creatinine 1.08 Estim Creat Clear Calc 91.97 Est GFR (MDRD) Af Amer 92 Est GFR (MDRD) Non-Af 76 BUN/Creatinine Ratio 17.6 Glucose 103 Calcium 9.4 Troponin I < 0.015 Radiology Impression Chest X-Ray 03/01/21 13:10 IMPRESSION: Hyperinflation. The lungs are clear. Electronically Signed: Ilan Childs MD at 13:53 EDT , Service support , Assessment & Plan Assessment/Plan (1) Atypical chest pain: (2) Paroxysmal atrial fibrillation: (3) TIA (transient ischemic attack): (4) TRAM (obstructive sleep apnea): PLAN: This is a 54 years old male patient presented to the emergency room because of palpitation and chest discomfort and he is being admitted for at community [facility] chest pain for evaluation. #1 palpitations/chest discomfort: In the setting of history of paroxysmal atrial fibrillation, cardioverted 3 days ago and he has been on Eliquis. Currently, he is normal sinus rhythm, EKG reviewed, was unremarkable. First troponin is negative. He had 2D echocardiogram on April, that showed ejection fraction of 47%. Plan: Admit to PCU for observation, cardiac monitoring, serial cardiac enzymes, repeat EKG tomorrow morning, will do 2D echocardiogram to reassess ejection fraction, nuclear stress test tomorrow morning if cardiac enzymes are negative. #2 paroxysmal atrial fibrillation: Currently, he is in sinus rhythm, rate is controlled. Continue metoprolol for rate control, continue Eliquis for anticoagulation. #3 history of TIA: Stable, no acute issues. #4 obstructive sleep apnea. #5 DVT prophylaxis: Continue Eliquis. This note was generated with [employer] dictation software. It may contain incorrect words, spelling, and punctuation that were not noted in checking the note before signing. Visit Charges OBSV E&M: 84416 Initial observation care L2
--- NOTE | 2021-03-01 14:35 | ECHOD_ITS ---
Reason For Study: AFIB/FLUTTER Procedure This was a 2D Doppler, Color Flow transthoracic echocardiogram. Exam performed portable in patient room. Left Ventricle Normal left ventricle. The estimated ejection fraction is EF 55-60% %. Right Ventricle Normal RV size. Normal systolic function. Atria Normal left atrium. Normal right atrium. Mitral Valve The mitral valve is structurally normal. No prolapse or stenosis seen. Trivial mitral valve insufficiency. Tricuspid Valve Normal tricuspid valve. Mild eccentric tricuspid valve insufficiency. Aortic Valve Normal aortic valve. Pulmonic Valve The pulmonic valve is not well visualized. Great Vessels Normal aortic root. Pericardium/Pleural No pericardial effusion. MMode/2D Measurements & Calculations LVIDd: 4.3 cm IVSd: 1.0 cm Ao root diam: 4.0 cm LVIDs: 3.0 cm LVPWd: 1.0 cm RVDd: 3.2 cm FS: 30.6 % LAV(MOD-bp): 46.4 ml LA A4 area: 15.2 cm2 LA dimension(2D): 3.6 cm LAV(MOD-bp) Indexed: 21.5 ml/m2 LAV(MOD-sp2): 56.7 ml LAV(MOD-sp4): 38.2 ml RA A4 area: 13.1 cm2 Doppler Measurements & Calculations MV E max joe: 44.9 cm/sec Lat Peak E' Joe: 10.0 cm/sec Med Peak E' Joe: 11.6 cm/sec MV A max joe: 54.0 cm/sec E/E' lat: 4.5 E/E' med: 3.9 MV E/A: 0.83 LV V1 max: 101.1 cm/sec PA V2 max: 103.8 cm/sec LV V1 max P.1 mmHg ECHO/Echo Complete Interpretation Summary The estimated ejection fraction is EF 55-60% %. Normal LV systolic function Improvement of LV systolic function in comparison to prior EF 47% Patient is in Normal sinus rhythm Ordering Physician: Adelaida Palmer Referring Physician: NICCI PCP Performed By: Sravanthi Mendez, SALIMA, RVT
--- NOTE | 2021-03-01 16:09 | EKG12_ITS ---
Test Reason : Blood Pressure : / mmHG Vent. Rate : 083 BPM Atrial Rate : 083 BPM P-R Int : 164 ms QRS Dur : 092 ms QT Int : 368 ms P-R-T Axes : 069 055 057 degrees QTc Int : 432 ms Normal sinus rhythm Nonspecific ST abnormality Abnormal ECG Confirmed by JUSTINA CELESTIN, NAN ([id number]), book or script editor KRUPA VIEIRA ([id number]) on 03/05/2021 3:00:40 PM Referred By: ERNESTINA Confirmed By:NAN HORN MD
[2021-03-01] MEDS: APIXABAN 5 MG TABLET PO (21:09)
[2021-03-01] MEDS: Metoprolol(XL)Succ 25 MG Tablet 12.5 MG PO (21:09)
[2021-03-02] VITALS (7 sets, daily range): BP systolic 99–106; BP diastolic 55–74; PULSE 67–80; RESP 14–18; TEMP 36.4–36.9; O2SAT 95–100
[2021-03-02] MEDS: 0.9% Saline Lock 10 ML Syringe IV (03:25)
--- NOTE | 2021-03-02 05:55 | EKG12_ITS ---
Test Reason : AM EKG Blood Pressure : / mmHG Vent. Rate : 061 BPM Atrial Rate : 061 BPM P-R Int : 172 ms QRS Dur : 102 ms QT Int : 404 ms P-R-T Axes : 058 021 044 degrees QTc Int : 406 ms Normal sinus rhythm Normal ECG Confirmed by JUSTINA CELESTIN, NAN ([id number]), medical transcription editor KRUPA VIEIRA ([id number]) on 03/05/2021 2:57:56 PM Referred By: DR MOORE Confirmed By:NAN HORN MD
[2021-03-02] MEDS: Lisinopril 5 MG Tablet PO (06:29)
[2021-03-02] MEDS: Metoprolol(XL)Succ 25 MG Tablet 12.5 MG PO (11:15)
--- NOTE | 2021-03-02 13:51 | STRESSREP ---
Stress Test Report Treadmill nuclear stress test; 55-year-old patient with history of paroxysmal A. fib, obstructive sleep apnea and cardiomyopathy. Had a history of cardioversion Patient had a family history of TIA and underwent evaluation by treadmill nuclear stress test. Stress protocol: Patient exercised according to standard Ramseh protocol, for a total of 9 minutes Maximum heart rate achieved is 141 bpm, equivalent to 84% of the maximum predicted heart rate which is 167 bpm. Resting blood pressure 112/82 mmHg with a resting heart rate of 85 bpm Maximum blood pressure achieved was 122/72 mmHg with a maximum workload of 10 METS. Reason for termination of the test is the target heart rate achieved. Stress EKG showed, normal sinus rhythm, unifocal PVC. With maximal stress no significant ST?T abnormality noted, multiple unifocal PVCs were noted. Myocardial perfusion protocol; [11.2 mCi ]of Technetium 99m Sestamibi was injected at rest. Following maximal stress, [31.1 mCi ]of Technetium 99m sestamibi was injected. Stress images were obtained stress and rest images were reconstructed and compared in the short axis vertical and horizontal long axis. Gated images were also obtained Perfusion SPECT analysis: Review of the images demonstrate normal uptake of sestamibi at rest, post stress images demonstrate similar uptake of sestamibi to the resting images, homogeneous tracer uptake With no evidence of reversible myocardial ischemia. Inferior attenuation artifact noted Gated SPECT analysis: The gated ejection fraction is 64%, normal left ventricle wall motion and normal LV systolic function Conclusion: Negative treadmill sestamibi myocardial perfusion study for reversible myocardial ischemia Normal LV systolic function . Bets Lacey MD,FACC,[facility]
[2021-03-02] MEDS: APIXABAN 5 MG TABLET PO (14:10)
--- NOTE | 2021-03-02 14:21 | PCM.DC ---
Discharge Instructions Follow Up Care Test Results: Test results from this visit will be discussed in further detail at your follow-up appointment, if applicable. Discharge Plan Admission Admit Date/Time: 03/01/21 14:06 Primary Reason for Your Visit: CHEST PAIN Attending Provider: Sadi Mariscal Primary Care Provider: Care Physician,No Primary Instructions Patient Instructions: ED Chest Pain, Noncardiac Discharge Orders/Prescriptions Prescriptions: Continued lisinopril 5 mg tablet 5 mg PO DAILY Qty: 90 RF: 3 apixaban 5 mg tablet 5 mg PO BID Qty: 60 RF: 11 multivitamin Tablet 1 tab PO DAILY RF: 0 metoprolol succinate 25 mg tablet extended release 24 hr 12.5 mg PO BID RF: 0 Referrals / Follow Up: Care Physician,No Primary [Primary Care Provider] - Disposition Disposition (needs filled in before D/C Order can be placed): Home, self care
--- NOTE | 2021-03-02 14:52 | PHA.DC.MR ---
Pharmacy Service has performed discharge medication reconciliation for this patient. The patient's discharge medication list was reviewed for discrepancies and discrepancies were resolved. Home Medications apixaban 5 mg tablet 5 mg PO BID #60 tab 05/18/20 lisinopril 5 mg tablet 5 mg PO DAILY #90 tab 11/21/20 metoprolol succinate 12.5 mg PO BID 03/01/21 multivitamin 1 tab PO DAILY 03/01/21
--- NOTE | 2021-03-02 18:38 | DS.PCM_ITS ---
Providers Date of Admission: 03/01/21 Date of Discharge: 03/02/21 Primary Care Physician: No Primary Care Phys Reason For Visit: PALPITATION, ATYPICAL CHEST PAIN Diagnosis Discharge Diagnosis (1) Atypical chest pain: Status: Acute Code(s): R07.89 - Other chest pain (2) Paroxysmal atrial fibrillation: Status: Chronic Code(s): I48.0 - Paroxysmal atrial fibrillation (3) TIA (transient ischemic attack): Status: Chronic Code(s): G45.9 - Transient cerebral ischemic attack, unspecified (4) TRAM (obstructive sleep apnea): Status: Suspected Code(s): G47.33 - Obstructive sleep apnea (adult) (pediatric) Plan: 1. Musculoskeletal chest pain #2 paroxysmal atrial fibrillation #3 obstructive sleep apnea Medications at Discharge Home Medications apixaban 5 mg tablet 5 mg PO BID #60 tab 05/18/20 lisinopril 5 mg tablet 5 mg PO DAILY #90 tab 11/21/20 metoprolol succinate 12.5 mg PO BID 03/01/21 multivitamin 1 tab PO DAILY 03/01/21 Hospital Course Procedures Nuclear stress test Summary of Care Provided Minutes Spent on Discharge: 30 Hospital Course: This 55-year-old white male was seen in the emergency room at [facility] with complaints of chest discomfort, work-up in the emergency room included an EKG, chest x-ray, cardiac enzymes all of which were unremarkable. Patient was placed in observation status on PCU, cardiac enzymes were cycled these remain normal. Patient underwent a nuclear stress test which was negative for reversible ischemia. On examination he appeared in good health and spirits. Vital signs as documented. Skin warm and dry and without overt rashes. Neck without JVD, neck was supple, trachea midline, thyroid was normal. Lungs clear bilaterally, normal air movement was noted. Heart exam notable for regular rhythm, normal sounds and absence of murmurs, rubs or gallops. Abdomen unremarkable and without evidence of organomegaly, masses, or abdominal aortic enlargement. Bowel sounds are present, abdomen is not distended. Extremities nonedematous, no cyanosis was noted, no clubbing was noted. Neuro: Cranial nerves II through XII are grossly intact, no focal motor deficits were noted, sensation to light touch and pinprick intact, motor exam 5/5 throughout. Psych: Patient is alert and oriented x3, he does not appear anxious or depressed, he does not appear agitated. Patient was discharged home in stable condition on 03/02/2021. 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 ABG / Lab / Microbiology Data Result Diagrams: 03/01/21 11:33 03/01/21 11:33 Laboratory: Laboratory Results - last 24 hr 03/01/21 17:59 Troponin I < 0.015 Meaningful Use Info Meaningful Use Diagnoses (Choose all that apply): None applicable Discharge Plan Admission Admit Date/Time: 03/01/21 14:06 Primary Reason for Your Visit: CHEST PAIN Attending Provider: Sadi Mariscal Primary Care Provider: Care Physician,No Primary Instructions Patient Instructions: ED Chest Pain, Noncardiac Discharge Orders/Prescriptions Prescriptions: Continued lisinopril 5 mg tablet 5 mg PO DAILY Qty: 90 RF: 3 apixaban 5 mg tablet 5 mg PO BID Qty: 60 RF: 11 multivitamin Tablet 1 tab PO DAILY RF: 0 metoprolol succinate 25 mg tablet extended release 24 hr 12.5 mg PO BID RF: 0 Referrals / Follow Up: Care Physician,No Primary [Primary Care Provider] - Disposition Disposition (needs filled in before D/C Order can be placed): Home, self care Visit Charges OBSV E&M: 24301 Observation care discharge
== END 2021-03-02 14:22 | disposition home or self-care (01) ==
LOC: ED 14:00 → PCU 14:22
PROVIDERS: Admitting Provider Hospitalist; Emergency Provider Emergency Medicine; Visit Provider Internal Medicine
DX: R07.89 Other chest pain (principal); I48.0 Paroxysmal atrial fibrillation; I42.8 Other cardiomyopathies; Z86.73 Personal history of transient ischemic attack (TIA), and cerebral infarction without residual deficits; Z79.899 Other long term (current) drug therapy; Z79.01 Long term (current) use of anticoagulants; Z87.891 Personal history of nicotine dependence; G47.33 Obstructive sleep apnea (adult) (pediatric)
CPT/HCPCS: 36415; 71045; 78452; 80048; 84484; 85025; 93005; 93017; 93306; 99218; 99285; A9500; A4216; G0378

== ENCOUNTER 2021-05-10 03:01 | Emergency (ER) | payer BC, SELFPAY ==
[2021-03-01 14:51] VITALS: BMI 25.3
[2021-05-10 03:01] VITALS: BP 111/72; PULSE 106; RESP 18; TEMP 37.4; O2SAT 96; BMI 26.0
[2021-05-10 03:04] VITALS: BP 111/72; PULSE 106; RESP 18; TEMP 37.4; O2SAT 96
--- NOTE | 2021-05-10 03:18 | EKG12_ITS ---
Test Reason : DYSRHYTHMIA Blood Pressure : / mmHG Vent. Rate : 099 BPM Atrial Rate : 099 BPM P-R Int : 164 ms QRS Dur : 086 ms QT Int : 316 ms P-R-T Axes : 059 050 030 degrees QTc Int : 405 ms Normal sinus rhythm T wave abnormality, consider inferior ischemia Abnormal ECG Confirmed by JUSTINA CELESTIN, NAN ([id number]), development editor KRUPA VIEIRA ([id number]) on 05/14/2021 1:14:29 PM Referred By: Confirmed By:NAN HORN MD
--- NOTE | 2021-05-10 03:23 | EDS_ITS ---
HPI History of Present Illness Chief Complaint: General Illness Informant: patient and EMS Narrative Narrative: 55-year-old male states that on Friday he began to not feel well. He states he had a slight amount of diarrhea nausea. He felt fatigued. No subdural headache. The symptoms have progressively worsened and then last evening the diarrhea got suddenly taken only worse. Tonight he got very nauseous states he was having to crawl to the bathroom. He felt like he was going to pass out. Last month he was treated with a cardiac ablation for A. fib. He denies any other significant medical problems. He does not believe he has had a fever. He notes a random small cough. He denies any potential ingestion of bad food or water. [facility] Medical History (Updated 05/10/21 @ 05:[address] Zana Pandey DO) Cardiomyopathy Non-ischemic cardiomyopathy Paroxysmal atrial fibrillation TIA (transient ischemic attack) (04/26/20) Home Medications apixaban 5 mg tablet 5 mg PO BID #60 tab 05/18/20 [Rx Last Taken 03/01/21] lisinopril 5 mg tablet 5 mg PO DAILY #90 tab 11/21/20 [Rx Last Taken 03/01/21] metoprolol succinate 12.5 mg PO BID 03/01/21 [History Last Taken 03/01/21] multivitamin 1 tab PO DAILY 03/01/21 [History Last Taken 2 Days Ago ~02/27/21] dicyclomine 20 mg PO TIDAC #20 capsule 05/10/21 [Rx Last Taken Unknown] ondansetron 4 mg PO Q6H PRN PRN #15 tab 05/10/21 [Rx Last Taken Unknown] Allergy/AdvReac Type Severity Reaction Status Date / Time No Known Allergies Allergy Verified 02/26/21 10:20 Family History Other Heart disease Hypertension Surgical History History of cardioversion (09/08/15) Social History Smoking Status: Never smoker alcohol intake: former substance use type: does not use ROS ROS ED Constitutional Constitutional ED: Reports chills and sweats; Denies weight loss Eyes Eyes: Denies change in vision or diplopia ENT ENT ED: Denies ear pain, rhinorrhea or sore throat Cardiovascular Cardiovascular: Denies chest pain, orthopnea, palpitations or racing heartbeat Respiratory/Chest Respiratory/Chest: Denies cough, dyspnea or orthopnea Gastrointestinal Gastrointestinal: Reports diarrhea and nausea; Denies abdominal pain or vomiting Genitourinary Genitourinary ED: Denies dysuria, hematuria or urinary frequency Musculoskeletal Musculoskeletal: Reports myalgias; Denies arthralgias Integumentary Denies abscess or rash Neurologic Neurologic: Reports headache(s); Denies weakness Psychiatric Psychiatric: Denies anxiety, depression, suicidal ideation or suicidal thoughts Endocrine Endocrinology: Denies polydipsia, polyphagia or polyuria Allergic/Immunologic Allergic/Immunologic ED: Denies mouth swelling, tongue swelling or urticaria EXAM Physical Exam Const Vital Signs: 05/10/21 03:01 05/10/21 03:04 Temperature 99.3 F H 99.3 F H Temperature Source Temporal Temporal Pulse Rate 106 H 106 H Respiratory Rate 18 18 Respiratory Pattern Normal Blood Pressure 111/72 111/72 Blood Pressure Mean 85 85 Pulse Ox 96 96 Oxygen Delivery Method Room Air Room Air Positive well nourished and well developed General Appearance ED: well developed HEENT Reports normocephalic, head/scalp atraumatic and moist mucous membranes Eyes PERRL and EOMs intact bilaterally Neck no lymphadenopathy, supple and no JVD Resp normal respiratory effort and clear to auscultation bilaterally Cardio regular rate and no murmurs Rate: tachycardic GI normal to inspection, nondistended, normoactive bowel sounds and non-tender Palpation: soft Back/Spine no CVA tenderness and normal ROM Extremity normal to inspection General Extremety ED: Negative for edema General Extremity: Negative for edema Neuro oriented x3 and CN's II-XII intact bilaterally Sensorium / Orientation: alert Motor Exam: strength 5/5 throughout Psych mental status grossly normal Mood & Affect: Negative for depressed or tearful Skin no rashes or lesions noted and no wounds MDM MDM MDM Narrative Medical decision making narrative: Basic blood work was negative. Urinalysis does not show overt infection. CT the abdomen pelvis no colitis or obstructive pattern. Patient received IV fluids Toradol and Zofran. At this point think the patient can be discharged home. He has been unable to give us a stool specimen while he is here. I would encourage him to take Imodium I can write for [facility] Lab Data Attestation: I reviewed the patient's lab results. Labs: Laboratory Results - last 24 hr 05/10/21 05/10/21 05/10/21 03:26 03:35 03:35 WBC 8.4 RBC 5.22 Hgb 15.4 Hct 45.6 MCV 87.4 MCH 29.5 MCHC 33.8 RDW Std Deviation 42.4 RDW Coeff of Cher 13.2 Plt Count 169 MPV 10.3 Immature Gran % (Auto) 0.600 Neut % (Auto) 88.7 H Lymph % (Auto) 3.9 L [place] % (Auto) 6.3 Eos % (Auto) 0.1 Baso % (Auto) 0.4 Absolute Neuts (auto) 7.5 Absolute Lymphs (auto) 0.33 L Nucleated RBC % 0 Differential Comment SCANNED Sodium 134 L Potassium 3.8 Chloride 104 Carbon Dioxide 22.0 Anion Gap 8 BUN 11 Creatinine 1.17 Estim Creat Clear Calc 84.89 Est GFR (MDRD) Af Amer 84 Est GFR (MDRD) Non-Af 69 BUN/Creatinine Ratio 9.4 L Glucose 124 H Calcium 9.1 Total Bilirubin 0.60 AST 22 ALT 37 Alkaline Phosphatase 62 Total Protein 7.3 Albumin 3.9 Globulin 3.4 Albumin/Globulin Ratio 1.1 Lipase 67 L Urine Color Yellow Urine Clarity Clear Urine pH 5.0 Ur Specific [place] 1.020 Urine Protein 30 H Urine Glucose (UA) Normal Urine Ketones 5 H Urine Occult Blood Negative Urine Nitrite Negative Urine Bilirubin Negative Urine Urobilinogen Normal Ur Leukocyte Esterase 25 H Urine RBC 0 SEEN Urine WBC 0-5 SEEN Ur Squamous Epith Cells 0 SEEN Urine Bacteria 2+ Urine Mucus 2+ Radiography Diagnostic Testing: Radiology Impression Abdomen/Pelvis CT 05/10/21 04:34 IMPRESSION: Normal enhanced CT of the abdomen and pelvis. Electronically Signed: Rinku Mauro DO at 5:40 EDT Tel , Service support , EKG Initial EKG: Attestation: I personally reviewed and interpreted this EKG as follows: Comments: EKG demonstrates a normal sinus rhythm at a rate of 99 bpm. Discharge Plan Triage Chief Complaint: General Illness ED Provider: Zana Pandey Dx/Rx/DC Orders Clinical Impression: Diarrhea, Abdominal pain Instructions: ED Diarrhea, Unknown Cause Prescriptions: New ondansetron [ondansetron] 4 MG tablet 4 mg PO Q6H PRN PRN (Reason: Nausea) Qty: 15 RF: 0 dicyclomine 10 MG capsule 20 mg PO TIDAC Qty: 20 RF: 0 No Action lisinopril 5 mg tablet 5 mg PO DAILY Qty: 90 RF: 3 apixaban 5 mg tablet 5 mg PO BID Qty: 60 RF: 11 multivitamin Tablet 1 tab PO DAILY RF: 0 metoprolol succinate 25 mg tablet extended release 24 hr 12.5 mg PO BID RF: 0 Primary Care Provider: Care Physician,No Primary Referrals: Care Physician,No Primary [Primary Care Provider] - Activity Restrictions/Additional Instructions: Follow-up with primary care if not improving return if worsening. Disposition Disposition: Home, Self Care
[2021-05-10 03:30] LABS: Red Blood Cells-Urine 0 SEEN /hpf (0-5); Squamous Epithelial Cells - UA 0 SEEN /hpf (0-5)
[2021-05-10] MEDS: 0.9% Normal Saline 1,000 ML 1000 ML IV (03:36)
[2021-05-10] MEDS: Ondansetron 4 MG/2 ML Vial IV (03:36)
[2021-05-10] MEDS: Ketorolac 30 MG/ML Syringe IV (03:36)
[2021-05-10 03:41] LABS: Glucose, Dipstick Normal (Normal); Ketone-Dipstick 5 mg/dl (Negative); Leukocyte Esterase-Dipstick 25 /ul (Negative); Nitrite-Dipstick Negative (Negative); Occult Blood-Urine Negative /ul (Negative); Protein-Dipstick 30 mg/dl (Negative); Urine Bilirubin Dipstick Negative (Negative); Urine Urobilinogen Normal (Normal)
[2021-05-10 03:51] LABS: Absolute Lymphocyte Count 0.33 X10^3/uL (0.83-4.51); Absolute Neutrophil Count 7.5 X10^3/uL (2.0-7.7); Basophil# 0.03 X10^3/uL; Basophil% 0.4 % (0-1); Differential Indicated SCAN CRITERIA MET; Eosinophil# 0.01 X10^3/uL; Eosinophils% 0.1 % (0-5); Hematocrit 45.6 % (40-54); Hemoglobin 15.4 g/dL (13.0-16.5); Lymphocyte # 0.33 X10^3/ul (0.83-4.51); Lymphocyte % 3.9 % (19-41); Mean Corp Hgb Conc 33.8 g/dL (32-36); Mean Corpuscular Hgb 29.5 pg (27.0-32.0); Mean Corpuscular Volume 87.4 fL (80-94); Mean Platelet Vol. 10.3 fl (6.2-12.0); Monocyte# 0.53 X10^3/uL; Monocyte% 6.3 % (0-10); NRBC Flagged by Analyzer 0 % (0-5); Neutrophil # 7.49 X10^3/uL (2.7-7.7); Neutrophil % 88.7 % (47-70); POSITIVE DIFFERENTIAL YES; Platelet Count 169 K/mm3 (150-450); RBC Distribution Width CV 13.2 % (11.6-14.6); RBC Distribution Width SD 42.4 fl (35.1-43.9); Red Blood Count 5.22 M/mm3 (4.6-6.2); White Blood Count 8.4 K/mm3 (4.4-11.0)
[2021-05-10 03:59] LABS: Color, Urine Yellow (Yellow); Urine Clarity Clear (Clear)
[2021-05-10 04:03] LABS: ALB/GLOB Ratio 1.1 RATIO (0.9-2.4); AST(SGOT) 22 U/L (15-37); Alanine Aminotransfer ALT/SGPT 37 U/L (16-61); Albumin, Serum 3.9 g/dL (3.2-5.0); Alkaline Phosphatase 62 U/L (45-117); Anion Gap 8 (5-15); BUN 11 mg/dL (7-18); BUN/Creat Ratio 9.4 RATIO (10-20); Calcium,Total 9.1 mg/dL (8.5-10.1); Chloride 104 mmol/L (98-107); Creatinine, Serum 1.17 mg/dL (0.70-1.30); EST Glomerular Filtration Rate 69 mL/min (>60); Est Glom Filt Rate - Afr Amer 84 mL/min (>60); Estimated Creatinine Clearance 84.89 ml/min; Globulin 3.4 g/dL (2.2-4.2); Glucose 124 mg/dL (74-106); Lipase 67 U/L (73-393); Potassium 3.8 mmol/L (3.5-5.1); Protein, Total 7.3 g/dL (6.4-8.2); Sodium Level 134 mmol/L (136-145)
[2021-05-10 04:09] LABS: Bacteria 2+ /hpf (None Seen); Mucous, Urine 2+ /hpf (<or=2+)
[2021-05-10 04:10] LABS: White Blood Cells 0-5 SEEN /hpf (0-5)
[2021-05-10 04:19] LABS: Differential Comment SCANNED
--- NOTE | 2021-05-10 04:34 | CT_ITS ---
STUDY: CT ABDOMEN AND PELVIS WITH CONTRAST REASON FOR EXAM: Male, 55 years old. colitis RADIATION DOSAGE (If Supplied By Facility): CTDIvol = ( 13.41 ) mGy, DLP = ( 886.19 ) mGycm TECHNIQUE: Transaxial images were obtained from the dome of the diaphragm to the symphysis pubis without oral contrast. IV 100mL Isovue-370 was administered. Sagittal and coronal images were reconstructed. Individualized dose optimization techniques were used for this CT. COMPARISON: None. FINDINGS: The visualized lung bases are unremarkable. The visualized portions of the heart are within normal limits. Normal liver. Normal gallbladder and extrahepatic biliary system. Normal spleen. Normal pancreas. Normal bilateral adrenal glands. Normal right kidney. Normal left kidney. Normal visualized stomach. Normal small intestine. Normal colon. The appendix is visualized and appears normal. Normal abdominal aorta. Normal inferior vena cava. Normal retroperitoneum. Normal urinary bladder. Normal visualized prostate gland. Normal abdominal wall. Normal osseous structures. CT/Abdomen/Pelvis W IV Cont ONLY IMPRESSION: Normal enhanced CT of the abdomen and pelvis. Electronically Signed: Rinku Mauro DO at 5:40 EDT Tel , Service support ,
[2021-05-10 06:10] VITALS: BP 107/78; PULSE 76; RESP 18; O2SAT 100
== END 2021-05-10 07:09 | disposition home or self-care (01) ==
PROVIDERS: Emergency Provider Emergency Medicine
DX: R10.9 Unspecified abdominal pain (principal); R19.7 Diarrhea, unspecified; R11.0 Nausea; I42.8 Other cardiomyopathies; I48.0 Paroxysmal atrial fibrillation; Z86.73 Personal history of transient ischemic attack (TIA), and cerebral infarction without residual deficits; Z79.01 Long term (current) use of anticoagulants; Z79.899 Other long term (current) drug therapy
CPT/HCPCS: 74177; 80053; 81001; 83690; 85025; 87426; 93005; 96361; 96374; 96375; 99285; J7030; Q9967; J2405

== ENCOUNTER → 2023-01-01 | Outpatient (CLI) | payer SELFPAY ==
[2023-01-01 10:09] LABS: Mean Corp Hgb Conc 32.7 g/dL (32-36); Mean Corpuscular Hgb 29.3 pg (27.0-32.0); Mean Corpuscular Volume 89.6 fL (80-94); Mean Platelet Vol. 10.9 fl (6.2-12.0); Platelet Count 204 K/mm3 (150-450); RBC Distribution Width CV 12.9 % (11.6-14.6); RBC Distribution Width SD 42.6 fl (35.1-43.9); Red Blood Count 5.47 M/mm3 (4.6-6.2); White Blood Count 6.3 K/mm3 (4.4-11.0)
[2023-01-01 10:27] LABS: ALB/GLOB Ratio 1.1 RATIO (0.9-2.4); AST(SGOT) 18 U/L (15-37); Alanine Aminotransfer ALT/SGPT 45 U/L (16-61); Alkaline Phosphatase 74 U/L (45-117); Anion Gap 7 (5-15); BUN 21 mg/dL (7-18); BUN/Creat Ratio 18.4 RATIO (10-20); Calcium,Total 9.7 mg/dL (8.5-10.1); Chloride 104 mmol/L (98-107); Creatinine, Serum 1.14 mg/dL (0.70-1.30); EST Glomerular Filtration Rate 71 mL/min (>60); Est Glom Filt Rate - Afr Amer 86 mL/min (>60); Globulin 3.5 g/dL (2.2-4.2); Glucose 97 mg/dL (74-106); Potassium 4.8 mmol/L (3.5-5.1); Protein, Total 7.5 g/dL (6.4-8.2); Sodium Level 138 mmol/L (136-145)
== END | disposition home or self-care (01) ==
LOC: MTLAB 08:14
PROVIDERS: Referring Provider Psychiatry & Neurology Neurology; Visit Provider Psychiatry & Neurology Neurology
DX: R51.9 Headache, unspecified (principal); R42 Dizziness and giddiness; R53.83 Other fatigue; R73.9 Hyperglycemia, unspecified
CPT/HCPCS: 36415; 80053; 84443; 85027

== ENCOUNTER 2023-05-10 11:41 | Observation (INO) | payer MEDICAID, SELFPAY ==
[2023-05-10] VITALS (10 sets, daily range): BP systolic 91–129; BP diastolic 64–109; PULSE 64–153; RESP 16–20; TEMP 36.1–36.9; O2SAT 94–97; BMI 27.7
--- NOTE | 2023-05-10 11:51 | RAD_ITS ---
STUDY: X-RAY CHEST REASON FOR EXAM: Male, 57 years old. Atypical chest pain TECHNIQUE: Single AP portable view of the chest. COMPARISON: 03/01/2021 FINDINGS: EKG leads overlie the chest The lungs are clear and expanded. There is no demonstrated pleural abnormality. Normal size heart. Normal mediastinum and meenakshi. Normal visualized pulmonary arteries. Normal visualized aortic arch and descending thoracic aorta. Normal visualized thoracic spine. Normal visualized ribs, clavicles, and shoulders. There is no demonstrated abnormality of the visualized soft tissue structures of the upper abdomen. RAD/Chest 1 View (Portable) IMPRESSION: No acute pulmonary process Electronically Signed: Juice Ambriz MD at 12:43 EDT ,
--- NOTE | 2023-05-10 11:51 | EKG12_ITS ---
Test Reason : PALPS Blood Pressure : / mmHG Vent. Rate : 151 BPM Atrial Rate : 302 BPM P-R Int : 000 ms QRS Dur : 076 ms QT Int : 240 ms P-R-T Axes : 257 015 -24 degrees QTc Int : 380 ms Atrial flutter with 2:1 A-V conduction Nonspecific ST abnormality Abnormal ECG Confirmed by JEFFREY CELESTIN, BARRY ([id number]), assistant production editor KRUPA VIEIRA ([id number]) on 05/12/2023 12:32:52 PM Referred By: BB Confirmed By:BARRY MURPHY MD
--- NOTE | 2023-05-10 11:58 | ED.VIS.CHEST ---
HPI <JOSHUA Suggs - Last Filed: 05/10/23 19:22> History of Present Illness Chief Complaint: Palpitations Narrative Narrative: Patient presenting today with palpitations that he has had intermittently since last night. He has a remote history of atrial fibrillation and a cardiac ablation that occurred a two years ago at [facility]. He reports he has been out of A-fib since. He has some midsternal chest discomfort, shortness of breath on exertion, and feels like his vision is blurred when the palpitations come on. PMH includes hypertension and anxiety. PFSH <JOSHUA Suggs - Last Filed: 05/10/23 19:22> PFSH Medical History Cardiomyopathy Non-ischemic cardiomyopathy Paroxysmal atrial fibrillation TIA (transient ischemic attack) (04/26/20) Home Medications multivitamin 1 tab PO DAILY SUPPLEMENT 03/01/21 [History Last Taken 2 Days Ago ~02/27/21] ondansetron 4 mg disintegrating tablet 4 mg PO Q6H PRN PRN Nausea #15 tabs 05/10/21 [Rx Last Taken Unknown] lisinopril 5 mg tablet See Rx Instructions .Route .COMPLEX #90 tabs 09/17/21 [Rx Last Taken Unknown] buspirone 5 mg tablet 5 mg PO BID anxiety #60 tabs 04/18/23 [Rx Last Taken Unknown] Allergy/AdvReac Type Severity Reaction Status Date / Time No Known Allergies Allergy Verified 05/10/23 11:45 Family History Father Heart disease Hypertension Surgical History History of cardioversion (09/08/15) Social History Smoking Status: Never smoker second hand exposure: No alcohol intake: former substance use type: does not use jaxon/zoroastrianism: Spiritism seatbelt use: sometimes ROS <JOSHUA Suggs - Last Filed: 05/10/23 19:22> ROS ED Constitutional Constitutional ED: Denies chills or fever(s) Eyes Eyes: Reports blurry vision Cardiovascular Cardiovascular: Reports palpitations and racing heartbeat; Denies chest pain Respiratory/Chest Respiratory/Chest: Reports dyspnea on exertion; Denies cough Gastrointestinal Gastrointestinal: Reports nausea; Denies abdominal pain or vomiting Genitourinary Genitourinary ED: Denies dysuria, hematuria or urinary frequency Musculoskeletal Musculoskeletal: Denies arthralgias or myalgias Integumentary Denies rash Neurologic Neurologic: Denies weakness Psychiatric Psychiatric: Denies anxiety, depression or suicidal ideation EXAM <JOSHUA Suggs - Last Filed: 05/10/23 19:22> Physical Exam Const Vital Signs: 05/10/23 11:43 05/10/23 12:07 05/10/23 12:07 Temperature 97.0 F L Temperature Source Temporal Pulse Rate 104 H 153 H Respiratory Rate 20 H 16 Respiratory Effort Short of Breath Blood Pressure 123/94 H 129/109 H Blood Pressure Mean 103 115 Pulse Ox 94 97 Oxygen Delivery Method Room Air Room Air 05/10/23 13:05 05/10/23 14:30 05/10/23 14:56 Temperature Temperature Source Pulse Rate 92 108 H 103 H Respiratory Rate 18 18 16 Respiratory Effort Blood Pressure 91/64 114/85 H 114/85 H Blood Pressure Mean 73 94 94 Pulse Ox 96 96 96 Oxygen Delivery Method Room Air Room Air Room Air 05/10/23 15:46 05/10/23 16:54 Temperature 97.2 F L Temperature Source Oral Pulse Rate 99 Respiratory Rate 20 H Respiratory Effort Blood Pressure 95/74 Blood Pressure Mean 81 Pulse Ox 97 96 Oxygen Delivery Method Room Air Room Air Positive well nourished, well developed and no apparent distress General Appearance ED: well developed HEENT Reports normocephalic and head/scalp atraumatic Mouth ED: Yes moist mucous membranes normal Eyes PERRL and EOMs intact bilaterally Neck full ROM and supple Chest Wall inspection of chest normal Resp normal respiratory effort and clear to auscultation bilaterally Cardio Rate: tachycardic Rhythm: abnormal rhythm irregularly irregular GI soft to palpation, non-tender, non-distended and no masses Back/Spine normal ROM and normal to inspection Extremity normal to inspection and full ROM Neuro oriented x3, CN's II-XII intact bilaterally, moves all extremities, no focal motor deficits and no sensory deficits noted Sensorium / Orientation: awake and alert Psych mental status grossly normal and thought process normal Skin no rashes or lesions noted and no wounds <Dr. Hemant Td, DO - Last Filed: 05/11/23 07:57> Physical Exam Const Vital Signs: 05/10/23 11:43 05/10/23 12:07 05/10/23 12:07 Temperature 97.0 F L Temperature Source Temporal Pulse Rate 104 H 153 H Respiratory Rate 20 H 16 Respiratory Effort Short of Breath Blood Pressure 123/94 H 129/109 H Blood Pressure Mean 103 115 Pulse Ox 94 97 Oxygen Delivery Method Room Air Room Air 05/10/23 13:05 05/10/23 14:30 05/10/23 14:56 Temperature Temperature Source Pulse Rate 92 108 H 103 H Respiratory Rate 18 18 16 Respiratory Effort Blood Pressure 91/64 114/85 H 114/85 H Blood Pressure Mean 73 94 94 Pulse Ox 96 96 96 Oxygen Delivery Method Room Air Room Air Room Air 05/10/23 15:46 05/10/23 16:54 Temperature 97.2 F L Temperature Source Oral Pulse Rate 99 Respiratory Rate 20 H Respiratory Effort Blood Pressure 95/74 Blood Pressure Mean 81 Pulse Ox 97 96 Oxygen Delivery Method Room Air Room Air [facility] <JOSHUA Suggs - Last Filed: 05/10/23 19:22> [facility] Narrative Medical decision making narrative: Patient presenting today due to palpitations that he has had intermittently since last night. He has a remote history of atrial fibrillation and is post ablation. He reports he has not been in a fib since having the ablation that took place 2 years ago. He is well-appearing and in no acute distress, EKG does show atrial flutter at 151 bpm. Labs obtained to rule out leukocytosis, anemia, electrolyte abnormality, ACS, D-dimer obtained to rule out blood clot, labs overall are unremarkable. Chest x-ray negative for any acute cardiopulmonary finding. Patient was given 20 mg IV Cardizem and IV fluids. On reexamination patient's right is around 103 BPM and his blood pressure is 114/85. I did speak with health and wellness sales consultant on-call, Dr. Napier who recommends starting patient on diltiazem p.o. 180 mg, discontinuing his lisinopril, and starting him on baby aspirin. He does have a follow-up appointment with Dr. Mata on Friday. He was given another liter of IV fluids and p.o. Cardizem. Patient was monitored in the emergency room and his heart rate did go back into the 150s with A-fib RVR. At this point, patient was discussed with the hospitalist for admission and will be admitted in stable condition and is comfortable with plan. Lab Data Attestation: I reviewed the patient's lab results. Labs: Laboratory Results - last 24 hr 05/10/23 05/10/23 05/10/23 12:05 13:15 14:10 WBC 6.1 RBC 5.83 Hgb 17.4 H Hct 51.6 MCV 88.5 MCH 29.8 MCHC 33.7 RDW Std Deviation 42.2 RDW Coeff of Cher 13.1 Plt Count 214 MPV 11.1 Immature Gran % (Auto) 1.000 H Neut % (Auto) 56.8 Lymph % (Auto) 30.9 [place] % (Auto) 7.8 Eos % (Auto) 2.5 Baso % (Auto) 1.0 Absolute Neuts (auto) 3.5 Absolute Lymphs (auto) 1.89 Nucleated RBC % 0 D-Dimer Quant (PE/DVT) 0.32 Sodium 137 Potassium 4.3 Chloride 104 Carbon Dioxide 28.0 Anion Gap 5 BUN 16 Creatinine 1.22 Estim Creat Clear Calc 79.54 Est GFR (MDRD) Af Amer 79 Est GFR (MDRD) Non-Af 65 BUN/Creatinine Ratio 13.1 Glucose 134 H Calcium 10.0 Troponin I High Sens 9 16 Radiography X-Ray: Read by ED Physician and Read by Radiologist Diagnostic Testing: Clinical Impression(s) from Imaging Studies Chest X-Ray 05/10/23 11:51 IMPRESSION: No acute pulmonary process Electronically Signed: Juice Ambriz MD at 12:43 EDT , EKG Initial EKG: Comments: 151 bpm, atrial flutter, no ST elevation, reviewed and interpreted by attending ED physician <Dr. Hemant Appiah, DO - Last Filed: 05/11/23 07:57> [facility] MDM Narrative Medical decision making narrative: Patient presenting today due to palpitations that he has had intermittently since last night. He has a remote history of atrial fibrillation and is post ablation. He reports he has not been in a fib since having the ablation that took place 2 years ago. He is well-appearing and in no acute distress, EKG does show atrial flutter at 151 bpm. Labs obtained to rule out leukocytosis, anemia, electrolyte abnormality, ACS, D-dimer obtained to rule out blood clot, labs overall are unremarkable. Chest x-ray negative for any acute cardiopulmonary finding. Patient was given 20 mg IV Cardizem and IV fluids. On reexamination patient's right is around 103 BPM and his blood pressure is 114/85. I did speak with health and wellness sales consultant on-call, Dr. Napier who recommends starting patient on diltiazem p.o. 180 mg, discontinuing his lisinopril, and starting him on baby aspirin. He does have a follow-up appointment with Dr. Mata on Friday. He was given another liter of IV fluids and p.o. Cardizem. Patient was monitored in the emergency room and his heart rate did go back into the 150s with A-fib RVR. At this point, patient was discussed with the hospitalist for admission and will be admitted in stable condition and is comfortable with plan. This patient was seen with a PA/CRUSHER ASSEMBLER Individually assessed they patient including history and physical. I have reviewed everything on the chart that is available and agree with the documentation provided by the PA/CRUSHER ASSEMBLER including discussion about the assessment, treatment plan, discussion, and return precautions. 57-year-old male with history of A-fib status post ablation and not on any medications for rate control or blood thinners. Presents today with A-fib with RVR with an EKG that showed a flutter at 151. Lab work-up was ultimately normal. D-dimer negative. Patient was given Cardizem 20 mg however his blood pressure dropped to 95/74. We did speak to Dr. Napier regarding the patient and he recommended initially to put him on diltiazem and discontinue his lisinopril however the patient had increasing heart rates from 110 bpm - 150 bpm. Given this and moderately low blood pressure we decided to admit the patient for observation. Discussed with hospitalist. Lab Data Labs: Laboratory Results - last 24 hr 05/10/23 05/10/23 05/10/23 12:05 13:15 14:10 WBC 6.1 RBC 5.83 Hgb 17.4 H Hct 51.6 MCV 88.5 MCH 29.8 MCHC 33.7 RDW Std Deviation 42.2 RDW Coeff of Cher 13.1 Plt Count 214 MPV 11.1 Immature Gran % (Auto) 1.000 H Neut % (Auto) 56.8 Lymph % (Auto) 30.9 [place] % (Auto) 7.8 Eos % (Auto) 2.5 Baso % (Auto) 1.0 Absolute Neuts (auto) 3.5 Absolute Lymphs (auto) 1.89 Nucleated RBC % 0 D-Dimer Quant (PE/DVT) 0.32 Sodium 137 Potassium 4.3 Chloride 104 Carbon Dioxide 28.0 Anion Gap 5 BUN 16 Creatinine 1.22 Estim Creat Clear Calc 79.54 Est GFR (MDRD) Af Amer 79 Est GFR (MDRD) Non-Af 65 BUN/Creatinine Ratio 13.1 Glucose 134 H Calcium 10.0 Troponin I High Sens 9 16 Radiography Diagnostic Testing: Clinical Impression(s) from Imaging Studies Chest X-Ray 05/10/23 11:51 IMPRESSION: No acute pulmonary process Electronically Signed: Juice Ambriz MD at 12:43 EDT , Discharge Plan Dx/Rx/DC Orders Clinical Impression: Atrial fibrillation with RVR Disposition Disposition: Acute Care Hospital [facility] Discharge Date/Time: 05/10/23 17:19
[2023-05-10] MEDS: 0.9% Normal Saline 1,000 ML 999 ML IV ×2 (12:19→16:01)
[2023-05-10] MEDS: dilTIAZem 25 MG/5 ML Vial 20 MG IV BOLUS (12:25)
[2023-05-10 12:30] LABS: Absolute Lymphocyte Count 1.89 X10^3/uL (0.83-4.51); Absolute Neutrophil Count 3.5 X10^3/uL (2.0-7.7); Basophil# 0.06 X10^3/uL; Eosinophil# 0.15 X10^3/uL; Eosinophils% 2.5 % (0-5); Hematocrit 51.6 % (40-54); Hemoglobin 17.4 g/dL (13.0-16.5); Lymphocyte # 1.89 X10^3/ul (0.83-4.51); Lymphocyte % 30.9 % (19-41); Mean Corp Hgb Conc 33.7 g/dL (32-36); Mean Corpuscular Hgb 29.8 pg (27.0-32.0); Mean Corpuscular Volume 88.5 fL (80-94); Mean Platelet Vol. 11.1 fl (6.2-12.0); Monocyte# 0.48 X10^3/uL; Monocyte% 7.8 % (0-10); NRBC Flagged by Analyzer 0 % (0-5); Neutrophil # 3.48 X10^3/uL (2.7-7.7); Neutrophil % 56.8 % (47-70); Platelet Count 214 K/mm3 (150-450); RBC Distribution Width CV 13.1 % (11.6-14.6); RBC Distribution Width SD 42.2 fl (35.1-43.9); Red Blood Count 5.83 M/mm3 (4.6-6.2); White Blood Count 6.1 K/mm3 (4.4-11.0)
[2023-05-10 12:44] LABS: Anion Gap 5 (5-15); BUN 16 mg/dL (7-18); BUN/Creat Ratio 13.1 RATIO (10-20); Chloride 104 mmol/L (98-107); Creatinine, Serum 1.22 mg/dL (0.70-1.30); EST Glomerular Filtration Rate 65 mL/min (>60); Est Glom Filt Rate - Afr Amer 79 mL/min (>60); Estimated Creatinine Clearance 79.54 ml/min; Glucose 134 mg/dL (74-106); Potassium 4.3 mmol/L (3.5-5.1); Sodium Level 137 mmol/L (136-145); Troponin-I HS (w/2H Reflex) 9 pg/mL (3.0-78.0)
[2023-05-10 13:56] LABS: D-Dimer Quantitative (DVT/PE) 0.32 FEU/ug/m (0.27-0.49)
[2023-05-10 14:18] LABS: Reflex Troponin-HS? (from REC) Y
[2023-05-10 14:40] LABS: Troponin-I HS 16 pg/mL (3.0-78.0)
[2023-05-10] MEDS: dilTIAZem CD 180 MG Capsule PO (16:15)
--- NOTE | 2023-05-10 16:36 | NURSING ---
DR HOOD FOR DR RENE
--- NOTE | 2023-05-10 16:47 | NURSING ---
PCU OBS HOOD AFIB
--- NOTE | 2023-05-10 17:03 | PCM.HP.STD ---
HPI - General General Date of Admission: 05/10/23 Date of Service: 05/10/23 Chief Complaint: fluttering in chest HPI Narrative SYED RUIZ, is a 57 M with history of A-fib with ablation 2 years ago at [facility] and borderline sleep apnea noncompliant with CPAP presented to [facility] 05/10/2023 for racing heart. In the ED he was found to have heart rate in 150s and was felt to be in A-fib with RVR, he was given a bolus of Cardizem and cardiology contacted who reported if his rate could be controlled in the ED and he was not hypotensive he could be discharged home however after he was given oral diltiazem systolic blood pressures in the low 90s with heart rate still low 100s so hospitalist consulted for admission. Lab work-up in ED otherwise unremarkable. Discussed with patient at bedside and he reports that he had been in his usual health until he woke up in middle the night with racing heart, he went back to bed thinking would go away and when he woke up it continued to race and he reported feeling a little bit of something ann-marie to chest discomfort but not overt pain felt slightly winded though not overtly short of breath. Denies any other symptoms and currently is not symptomatic with the A-fib with heart rate in high 90s/low 100s. At present has no complaints. [facility] Medical History Cardiomyopathy Non-ischemic cardiomyopathy Paroxysmal atrial fibrillation TIA (transient ischemic attack) (04/26/20) Home Medications multivitamin 1 tab PO DAILY SUPPLEMENT 03/01/21 [History Last Taken 2 Days Ago ~02/27/21] ondansetron 4 mg disintegrating tablet 4 mg PO Q6H PRN PRN Nausea #15 tabs 05/10/21 [Rx Last Taken Unknown] lisinopril 5 mg tablet See Rx Instructions .Route .COMPLEX #90 tabs 09/17/21 [Rx Last Taken Unknown] buspirone 5 mg tablet 5 mg PO BID anxiety #60 tabs 04/18/23 [Rx Last Taken Unknown] Allergy/AdvReac Type Severity Reaction Status Date / Time No Known Allergies Allergy Verified 05/10/23 11:45 Family History Father Heart disease Hypertension Surgical History History of cardioversion (09/08/15) Social History Smoking Status: Never smoker second hand exposure: No alcohol intake: former substance use type: does not use jaxon/synagogue: Congregational seatbelt use: sometimes ROS ROS Narrative General: Denies fever/chills HENT: Denies headache, denies stuffy nose, denies sore throat EYES: Denies changes in vision Resp: Denies cough, denies shortness of breath Cardiac: Denies chest pain, was experiencing racing heart this is resolved GI: Denies abdominal pain, denies changes in bowel, denies nausea/vomiting : Denies changes in urination Extremity: Denies swelling MSK: Denies weakness Neuro: Denies any numbness/tingling Heme: Denies any bleeding or bruising Skin: Denies rashes Psychiatric: No complaints voiced Vital Signs Vital Signs Vital Signs: 05/10/23 11:43 05/10/23 12:07 05/10/23 12:07 Temperature 97.0 F L Temperature Source Temporal Pulse Rate 104 H 153 H Respiratory Rate 20 H 16 Respiratory Effort Short of Breath Blood Pressure 123/94 H 129/109 H Blood Pressure Mean 103 115 Pulse Ox 94 97 Oxygen Delivery Method Room Air Room Air 05/10/23 13:05 05/10/23 14:30 05/10/23 14:56 Temperature Temperature Source Pulse Rate 92 108 H 103 H Respiratory Rate 18 18 16 Respiratory Effort Blood Pressure 91/64 114/85 H 114/85 H Blood Pressure Mean 73 94 94 Pulse Ox 96 96 96 Oxygen Delivery Method Room Air Room Air Room Air 05/10/23 15:46 05/10/23 16:54 Temperature 97.2 F L Temperature Source Oral Pulse Rate 99 Respiratory Rate 20 H Respiratory Effort Blood Pressure 95/74 Blood Pressure Mean 81 Pulse Ox 97 96 Oxygen Delivery Method Room Air Room Air Weight Weight: 97.976 kg Body Mass Index (BMI) 27.7 Physical Exam Narrative General: Alert, oriented, no apparent distress HEENT: Atraumatic, normocephalic Eyes: Anicteric, normal conjunctiva, extraocular movements grossly intact Neck: Supple Respiratory: Clear to auscultation bilaterally, normal respiratory effort Cardiovascular: Irregularly irregular and intermittently tachycardic GI: Soft, nontender, nondistended Extremities: No edema Musculoskeletal: Moving all extremities Neuro: No overt focal neurological deficits Skin: No rashes appreciated Psych: Cooperative Results Lab / Micro Data 05/10/23 12:05 05/10/23 12:05 Labs: Laboratory Results - last 24 hr 05/10/23 12:05: WBC 6.1, RBC 5.83, Hgb 17.4 H, Hct 51.6, MCV 88.5, MCH 29.8, MCHC 33.7, RDW Std Deviation 42.2, RDW Coeff of Cher 13.1, Plt Count 214, MPV 11.1, Immature Gran % (Auto) 1.000 H, Neut % (Auto) 56.8, Lymph % (Auto) 30.9, [place] % (Auto) 7.8, Eos % (Auto) 2.5, Baso % (Auto) 1.0, Absolute Neuts (auto) 3.5, Absolute Lymphs (auto) 1.89, Nucleated RBC % 0, Sodium 137, Potassium 4.3, Chloride 104, Carbon Dioxide 28.0, Anion Gap 5, BUN 16, Creatinine 1.22, Estim Creat Clear Calc 79.54, Est GFR (MDRD) Af Amer 79, Est GFR (MDRD) Non-Af 65, BUN/Creatinine Ratio 13.1, Glucose 134 H, Calcium 10.0, Troponin I High Sens 9 05/10/23 13:15: D-Dimer Quant (PE/DVT) 0.32 05/10/23 14:10: Troponin I High Sens 16 Radiology Impression Chest X-Ray 05/10/23 11:51 IMPRESSION: No acute pulmonary process Electronically Signed: Juice Ambriz MD at 12:43 EDT Reading Location ID and State: [facility] / [place] , Service support , Assessment & Plan Assessment/Plan (1) Paroxysmal atrial fibrillation: (2) TIA (transient ischemic attack): (3) TRAM (obstructive sleep apnea): PLAN: Plan #A-fib with RVR -EKG with rate of 151, actually. We flutter with 2-1 block but is A-fib on monitor presently -Given diltiazem with improvement in rate but systolic blood pressures of 90s and heart rate intermittently jumping up again as well even with low blood pressure -[id number] of 2 as he has reported history of TIA -Given blood pressure drop with diltiazem we will transition to metoprolol -Can consider Amio temporarily if patient goes back in RVR and blood pressure does not tolerate additional medications -We will order echo, if patient has a rate that is stable tomorrow and is doing well will likely not need to stay until Friday for echo especially as he will be following with cardiology on Friday. Last echocardiogram in 2020 with an EF of 55 to 60% and normal systolic function and had improved compared to prior EF of 45% -We will start full dose anticoagulation given [id number] of 2 for the TIA -We will check TSH -Troponin within normal limits and patient does not have chest pain. #History of borderline TRAM -Reports he was previously borderline and was given a CPAP but could not tolerate it and has not been using this -Discussed he would be best to follow-up as an outpatient to discuss this as he has gone back into A-fib and it happened at night during sleep, patient verbalized understanding -Additionally pt has hgb of 17.4 that has been intermittently normal but as high as 18.3 around the time he was diagnosed w/ sleep apnea which lends to theory of TRAM, pt being hydrated #DVT ppx: Juan Fountain MD Time spent in the patient's overall evaluation,decision-making process, review of diagnostic data, adjustment of management, discussion with other providers, nursing nursing and ancillary staff involved in patient's care documentation, 56 minutes Charges/Coding Visit Charges Inpatient E&M: 38884 Init Hosp L2
[2023-05-10] MEDS: Metoprolol Tartrate 25 MG Tablet PO (21:03)
[2023-05-10] MEDS: busPIRone 5 MG Tablet PO (21:03)
[2023-05-10] MEDS: APIXABAN 5 MG TABLET PO (21:03)
[2023-05-10] MEDS: 0.9% Saline Lock 10 ML Syringe IV (21:07)
[2023-05-11 02:57] VITALS: BP 98/70; PULSE 68; RESP 16; TEMP 36.5; O2SAT 98
[2023-05-11 06:16] LABS: Absolute Neutrophil Count 3.5 X10^3/uL (2.0-7.7); Basophil# 0.06 X10^3/uL; Basophil% 0.8 % (0-1); Eosinophil# 0.29 X10^3/uL; Hematocrit 47.8 % (40-54); Hemoglobin 15.8 g/dL (13.0-16.5); Lymphocyte % 38.5 % (19-41); Mean Corp Hgb Conc 33.1 g/dL (32-36); Mean Corpuscular Hgb 29.3 pg (27.0-32.0); Mean Corpuscular Volume 88.7 fL (80-94); Mean Platelet Vol. 10.5 fl (6.2-12.0); Monocyte# 0.62 X10^3/uL; Monocyte% 8.5 % (0-10); NRBC Flagged by Analyzer 0 % (0-5); Neutrophil # 3.48 X10^3/uL (2.7-7.7); Neutrophil % 47.9 % (47-70); Platelet Count 192 K/mm3 (150-450); RBC Distribution Width CV 13.3 % (11.6-14.6); Red Blood Count 5.39 M/mm3 (4.6-6.2); White Blood Count 7.3 K/mm3 (4.4-11.0)
[2023-05-11 07:19] LABS: Anion Gap 4 (5-15); BUN 14 mg/dL (7-18); BUN/Creat Ratio 13.6 RATIO (10-20); Calcium,Total 9.1 mg/dL (8.5-10.1); Chloride 108 mmol/L (98-107); Cholesterol 194 mg/dL (200); Creatinine, Serum 1.03 mg/dL (0.70-1.30); EST Glomerular Filtration Rate 79 mL/min (>60); Est Glom Filt Rate - Afr Amer 96 mL/min (>60); Estimated Creatinine Clearance 94.22 ml/min; Glucose 99 mg/dL (74-106); High Density Lipoprotein 33 mg/dL; Potassium 4.7 mmol/L (3.5-5.1); Sodium Level 139 mmol/L (136-145); T4 Free Direct 1.05 ng/dL (0.76-1.46); Thyroid Stim Hormone (TSH) 2.96 uIU/mL (0.358-3.74); Triglycerides 130 mg/dL; Very Low Density Lipoprotein 26 mg/dL (5-40)
[2023-05-11 08:39] VITALS: BP 107/65; PULSE 81; RESP 16; TEMP 36.8; O2SAT 97
[2023-05-11 11:01] VITALS: PULSE 81
[2023-05-11] MEDS: APIXABAN 5 MG TABLET PO (11:01)
[2023-05-11] MEDS: Metoprolol Tartrate 25 MG Tablet PO (11:01)
[2023-05-11] MEDS: busPIRone 5 MG Tablet PO (11:01)
--- NOTE | 2023-05-11 12:57 | DS.PCM_ITS ---
Providers Date of Admission: 05/10/23 Date of Discharge: 05/11/23 Primary Care Physician: Cherri Primary Care Phys Consultations 05/11/23 09:41 Consult: Cardiology Routine Consulting Provider: Yessenia Napier Reason for Consult: in afib, here inially w/ rvr, sx while in afib, hx cardioversions EMERGENT Consult: No MD Notified: Yes Date Notified: 05/11/23 Time Notified: 09:41 Method of Notification: Text Reason For Visit: AFIB RVR Diagnosis Discharge Diagnosis (1) Paroxysmal atrial fibrillation: Status: Chronic Code(s): I48.0 - Paroxysmal atrial fibrillation (2) TIA (transient ischemic attack): Status: Chronic Code(s): G45.9 - Transient cerebral ischemic attack, unspecified (3) TRAM (obstructive sleep apnea): Status: Suspected Code(s): G47.33 - Obstructive sleep apnea (adult) (pediatric) Plan #A-fib with RVR #History of borderline TRAM #Hx of TIA reportedly Medications at Discharge Home Medications multivitamin 1 tab PO DAILY SUPPLEMENT 03/01/21 ondansetron 4 mg disintegrating tablet 4 mg PO Q6H PRN PRN Nausea #15 tabs 05/10/21 lisinopril 5 mg tablet See Rx Instructions .Route .COMPLEX #90 tabs 09/17/21 buspirone 5 mg tablet 5 mg PO BID anxiety #60 tabs 04/18/23 apixaban 5 mg tablet (Eliquis) 5 mg PO BID 30 days #60 tabs 05/11/23 metoprolol tartrate 25 mg tablet 25 mg PO BID 30 days #60 tabs 05/11/23 Hospital Course Summary of Care Provided Minutes Spent on Discharge: 32 Hospital Course: Per HPI: SYED RUIZ, is a 57 M with history of A-fib with ablation 2 years ago at [facility] and borderline sleep apnea noncompliant with CPAP presented to [facility] 05/10/2023 for racing heart. In the ED he was found to have heart rate in 150s and was felt to be in A-fib with RVR, he was given a bolus of Cardizem and cardiology contacted who reported if his rate could be controlled in the ED and he was not hypotensive he could be discharged home however after he was given oral diltiazem systolic blood pressures in the low 90s with heart rate still low 100s so hospitalist consulted for admission. Lab work-up in ED otherwise unremarkable. Discussed with patient at bedside and he reports that he had been in his usual health until he woke up in middle the night with racing heart, he went back to bed thinking would go away and when he woke up it continued to race and he reported feeling a little bit of something ann-marie to chest discomfort but not overt pain felt slightly winded though not overtly short of breath. Denies any other symptoms and currently is not symptomatic with the A-fib with heart rate in high 90s/low 100s. At present has no complaints. INTERVAL HISTORY: Patient's rate is under control with transition to metoprolol and blood pressure was better. He was distressed that he was still in A-fib and requested cardiology evaluation. Cardiology evaluated and felt that he was stable for discharge on present medications and to follow-up in the office and follow-up with his title agent. Patient with no episodes of RVR 05/11 an d is tolerating medications. Discharge instructions as follows: -You will be discharged on Eliquis 5 mg twice daily. You qualifying for this as you previously had reported TIA which puts him at higher risk for stroke from A- fib -He will be discharged on metoprolol to tartrate 25 mg twice daily, both of these have been sent to your preferred pharmacy on file, [facility], which is open until 6 PM on Sundays. [facility] was contacted and confirmed that they are open till 6 PM -You will need to follow-up with cardiology upon discharge, you indicated that you have an appointment with cardiology this Friday. Please keep that follow-up appointment if you have any problems or questions with scheduling please call their office ) -Please call your primary care provider's office upon discharge to schedule a hospital follow up within 1 week. -If you do not have a primary care physician of list of local primary care physicians can be provided for you upon discharge. Please ask for this list prior to discharge -For any concerning signs or symptoms please call 911 or proceed to the nearest emergency department Physical Exam Narrative General: Alert, oriented, no apparent distress HEENT: Atraumatic, normocephalic Eyes: Anicteric, normal conjunctiva, extraocular movements grossly intact Neck: Supple Respiratory: Clear to auscultation bilaterally, normal respiratory effort Cardiovascular: Irregularly irregular, not tachycardic GI: Soft, nontender, nondistended Extremities: No edema Musculoskeletal: Moving all extremities Neuro: No overt focal neurological deficits Skin: No rashes appreciated Psych: Cooperative Weight / BMI Weight Weight: 97.976 kg Body Mass Index (BMI) 27.7 ABG / Lab / Microbiology Data 05/11/23 05:45 05/11/23 05:45 Laboratory: Laboratory Results - last 24 hr 05/10/23 13:15: D-Dimer Quant (PE/DVT) 0.32 05/10/23 14:10: Troponin I High Sens 16 05/11/23 05:45: WBC 7.3, RBC 5.39, Hgb 15.8, Hct 47.8, MCV 88.7, MCH 29.3, MCHC 33.1, RDW Std Deviation 43.0, RDW Coeff of Cher 13.3, Plt Count 192, MPV 10.5, Immature Gran % (Auto) 0.300, Neut % (Auto) 47.9, Lymph % (Auto) 38.5, [place] % (Auto) 8.5, Eos % (Auto) 4.0, Baso % (Auto) 0.8, Absolute Neuts (auto) 3.5, Absolute Lymphs (auto) 2.80, Nucleated RBC % 0, Sodium 139, Potassium 4.7, Chloride 108 H, Carbon Dioxide 27.0, Anion Gap 4 L, BUN 14, Creatinine 1.03, E stim Creat Clear Calc 94.22, Est GFR (MDRD) Af Amer 96, Est GFR (MDRD) Non-Af 79, BUN/Creatinine Ratio 13.6, Glucose 99, Calcium 9.1, Triglycerides 130, Cholesterol 194, LDL Cholesterol 135 H, VLDL Cholesterol 26, HDL Cholesterol 33 L, TSH 2.96, Free T4 1.05 D/C Instructions Discharge Diet: No restrictions Meaningful Use Info Meaningful Use Diagnoses (Choose all that apply): None applicable Discharge Plan Admission Admit Date/Time: 05/10/23 17:03 Primary Reason for Your Visit: Afib Attending Provider: Deb Fountain Primary Care Provider: Care Physician,No Primary Consulting Providers: Yessenia Napier Instructions Patient Instructions: AFib Dc, AFib Preventing Stroke Additional Instructions / Restrictions: DISCHARGE INSTRUCTIONS PLEASE READ *Please take this with you to your next doctors appointment* -You will be discharged on Eliquis 5 mg twice daily. You qualifying for this as you previously had reported TIA which puts him at higher risk for stroke from A- fib -He will be discharged on metoprolol to tartrate 25 mg twice daily, both of these have been sent to your preferred pharmacy on file, [facility], which is open until 6 PM on Sundays. [facility] was contacted and confirmed that they are open till 6 PM -You will need to follow-up with cardiology upon discharge, you indicated that you have an appointment with cardiology this Friday. Please keep that follow-up appointment if you have any problems or questions with scheduling please call their office ) -Please call your primary care provider's office upon discharge to schedule a hospital follow up within 1 week. -If you do not have a primary care physician of list of local primary care physicians can be provided for you upon discharge. Please ask for this list prior to discharge -For any concerning signs or symptoms please call 911 or proceed to the nearest emergency department Discharge Orders/Prescriptions Prescriptions: New metoprolol tartrate 25 mg Tablet 25 mg PO BID 30 Days Qty: 60 0RF Eliquis 5 mg Tablet 5 mg PO BID 30 Days Qty: 60 0RF Continued multivitamin Tablet 1 tab PO DAILY ondansetron 4 MG tablet 4 mg PO Q6H PRN PRN (Reason: Nausea) Qty: 15 0RF buspirone 5 mg tablet 5 mg PO BID Qty: 60 4RF Held lisinopril 5 mg tablet See Rx Instructions .ROUTE .COMPLEX Qty: 90 3RF Hold Instructions: Resume on 05/21/23. Dose Instruction: Take 1 tablet by mouth once daily Rx Instructions: Take 1 tablet by mouth once daily Referrals / Follow Up: Yessenia Napier MD [Med Staff - Active [facility]] - 05/16/23 Care Physician,No Primary [Primary Care Provider] - ( -If you do not have a primary care physician of list of local primary care physicians can be provided for you upon discharge. Please ask for this list prior to discharge) Disposition Disposition (needs filled in before D/C Order can be placed): Home, Self Care Charges/Coding Visit Charges Inpatient E&M: 09042 Disch Hosp >30min
--- NOTE | 2023-05-11 13:10 | PCM.CONS.C ---
Assessment & Plan Assessment/Plan (1) Paroxysmal atrial fibrillation: PLAN: History of A-fib ablation. However back in atrial fibrillation. Agree with metoprolol. On Eliquis. History of TIA. Further follow-up as outpatient. Advised to make an appointment with his medical billing representative. Follow up in cardiology office as previously scheduled for this coming Friday. (2) TRAM (obstructive sleep apnea): PLAN: As per sleep medicine. HPI Consult Data Date of Consult: 05/11/23 HPI Narrative Reason for Consultation: Paroxysmal atrial fibrillation HPI Narrative: Patient has past medical history significant for atrial fibrillation. He has had ablation done previously at [facility]. He presented to the emergency room yesterday with complaints of palpitations. He was noted to be in atrial fibrillation with rapid ventricular response. No chest pain or shortness of breath. No orthopnea. No PND. No ankle edema. [facility] Medical History Cardiomyopathy Non-ischemic cardiomyopathy Paroxysmal atrial fibrillation TIA (transient ischemic attack) (04/26/20) Home Medications multivitamin 1 tab PO DAILY SUPPLEMENT 03/01/21 [History Last Taken 2 Days Ago ~02/27/21] ondansetron 4 mg disintegrating tablet 4 mg PO Q6H PRN PRN Nausea #15 tabs 05/10/21 [Rx Last Taken Unknown] lisinopril 5 mg tablet See Rx Instructions .Route .COMPLEX blood pressure #90 tabs 09/17/21 [Rx Last Taken Unknown] buspirone 5 mg tablet 5 mg PO BID anxiety #60 tabs 04/18/23 [Rx Last Taken Unknown] apixaban 5 mg tablet (Eliquis) 5 mg PO BID 30 days #60 tabs 05/11/23 [Rx Last Taken Unknown] metoprolol tartrate 25 mg tablet 25 mg PO BID 30 days #60 tabs 05/11/23 [Rx Last Taken Unknown] Allergy/AdvReac Type Severity Reaction Status Date / Time No Known Allergies Allergy Verified 05/10/23 11:45 Family History Father Heart disease Hypertension Surgical History History of cardioversion (09/08/15) Social History (Reviewed 05/10/23 @ 12:00 by CHRISTI Suggs Smoking Status: Never smoker second hand exposure: No alcohol intake: former substance use type: does not use jaxon/jain: Yarsanism seatbelt use: sometimes Physical Exam Const Constitutional Narrative: Comfortable. No apparent distress. Heart sounds 1 and 2 noted. Irregularly irregular. Chest clear to auscultation bilaterally. Abdomen soft. Alert oriented x3. No ankle edema noted. Risk Stratification Risk Stratification Applicable: No Objective Data Vital Signs: Vital Signs Temp Pulse Resp BP Pulse Ox O2 Del Method 98.3 F 81 16 107/65 97 Room Air 05/11/23 08:39 05/11/23 11:01 05/11/23 08:39 05/11/23 08:39 05/11/23 08:39 05/11/23 08:39 Oxygen Delivery Method Room Air Weight: 216 lb Body Mass Index (BMI) 27.7 Intake & Output: Intake and Output for Last 24 Hours 05/09/23 05/10/23 05/11/23 23:59 23:59 23:59 Intake Total 2240 / 2240 0 / 0 Balance 2240 / 2240 0 / 0 Lab / Micro Data 05/11/23 05:45 05/11/23 05:45 Labs: Laboratory Results - last 24 hr 05/10/23 13:15: D-Dimer Quant (PE/DVT) 0.32 05/10/23 14:10: Troponin I High Sens 16 05/11/23 05:45: WBC 7.3, RBC 5.39, Hgb 15.8, Hct 47.8, MCV 88.7, MCH 29.3, MCHC 33.1, RDW Std Deviation 43.0, RDW Coeff of Cher 13.3, Plt Count 192, MPV 10.5, Immature Gran % (Auto) 0.300, Neut % (Auto) 47.9, Lymph % (Auto) 38.5, [place] % (Auto) 8.5, Eos % (Auto) 4.0, Baso % (Auto) 0.8, Absolute Neuts (auto) 3.5, Absolute Lymphs (auto) 2.80, Nucleated RBC % 0, Sodium 139, Potassium 4.7, Chloride 108 H, Carbon Dioxide 27.0, Anion Gap 4 L, BUN 14, Creatinine 1.03, Estim Creat Clear Calc 94.22, Est GFR (MDRD) Af Amer 96, Est GFR (MDRD) Non-Af 79, BUN/Creatinine Ratio 13.6, Glucose 99, Calcium 9.1, Triglycerides 130, Cholesterol 194, LDL Cholesterol 135 H, VLDL Cholesterol 26, HDL Cholesterol 33 L, TSH 2.96, Free T4 1.05 Cardiology Labs/Tests 05/10/23 13:15: D-Dimer Quant (PE/DVT) 0.32 05/11/23 05:45: WBC 7.3, RBC 5.39, Hgb 15.8, Hct 47.8, MCV 88.7, MCH 29.3, MCHC 33.1, Plt Count 192, MPV 10.5, Immature Gran % (Auto) 0.300, Neut % (Auto) 47.9, Lymph % (Auto) 38.5, [place] % (Auto) 8.5, Eos % (Auto) 4.0, Baso % (Auto) 0.8, Absolute Neuts (auto) 3.5, Nucleated RBC % 0, Sodium 139, Potassium 4.7, Chloride 108 H, Carbon Dioxide 27.0, Anion Gap 4 L, BUN 14, Creatinine 1.03, Est GFR (MDRD) Af Amer 96, Est GFR (MDRD) Non-Af 79, BUN/Creatinine Ratio 13.6, Glucose 99, Calcium 9.1, Triglycerides 130, Cholesterol 194, LDL Cholesterol 135 H, VLDL Cholesterol 26, HDL Cholesterol 33 L Rhythm: EKG: ECHO: Stress Test: Cardiac Cath: PCI: CT Surgery: Holter monitor: EPS: PPM: CXR: Chest CT Scan:
--- NOTE | 2023-05-11 13:21 | NURSING ---
30 day free card for Eliquis given to patient.
[2023-05-11 13:25] VITALS: BP 112/87; PULSE 76; RESP 16; TEMP 36.7; O2SAT 96
== END 2023-05-11 13:42 | disposition home or self-care (01) ==
LOC: ED 12:25 → PCU 17:23
PROVIDERS: Physician Assistant; Admitting Provider Internal Medicine; Emergency Provider Student in an Organized Health Care Education/Training Program; Visit Provider Internal Medicine
DX: I48.0 Paroxysmal atrial fibrillation (principal); I42.8 Other cardiomyopathies; I48.92 Unspecified atrial flutter; G47.33 Obstructive sleep apnea (adult) (pediatric); I10 Essential (primary) hypertension; F41.9 Anxiety disorder, unspecified; Z86.73 Personal history of transient ischemic attack (TIA), and cerebral infarction without residual deficits; Z79.899 Other long term (current) drug therapy; Z87.891 Personal history of nicotine dependence; R94.31 Abnormal electrocardiogram [ECG] [EKG]
CPT/HCPCS: 36415; 71045; 80048; 80061; 84439; 84443; 84484; 85025; 85379; 93005; 96361; 96374; 97802; 99221; 99285; J7030; A4216; G0378

== ENCOUNTER 2023-06-19 07:22 | Outpatient (RCR) | payer MEDICAID, SELFPAY ==
[2023-06-19 08:53] LABS: International Normalized Ratio 1.4; Prothrombin Time (Protime)PT. 17.4 SECONDS (11.7-14.9)
== END 2023-06-19 18:00 | disposition home or self-care (01) ==
LOC: LAB 07:22
PROVIDERS: Referring Provider Physician Assistant Medical; Visit Provider Physician Assistant Medical
DX: I48.0 Paroxysmal atrial fibrillation (principal); Z79.01 Long term (current) use of anticoagulants; Z86.73 Personal history of transient ischemic attack (TIA), and cerebral infarction without residual deficits
CPT/HCPCS: 36415; 85610

== ENCOUNTER 2023-07-17 13:27 | Outpatient (RCR) | payer SELFPAY ==
[2023-06-26 07:27] LABS: International Normalized Ratio 1.4; Prothrombin Time (Protime)PT. 17.6 SECONDS (11.7-14.9)
[2023-07-03 10:03] LABS: International Normalized Ratio 1.6; Prothrombin Time (Protime)PT. 19.1 SECONDS (11.7-14.9)
[2023-07-10 07:25] LABS: International Normalized Ratio 1.8; Prothrombin Time (Protime)PT. 21.1 SECONDS (11.7-14.9)
[2023-07-17 13:35] LABS: INR Fingerstick 2.1; Prothrombin Time Fingerstick 22.6 SEC (11.7-14.9)
== END 2023-07-17 18:00 | disposition home or self-care (01) ==
LOC: LAB 13:27
PROVIDERS: Referring Provider Physician Assistant Medical; Visit Provider Physician Assistant Medical
DX: I48.0 Paroxysmal atrial fibrillation (principal); Z79.01 Long term (current) use of anticoagulants; Z86.73 Personal history of transient ischemic attack (TIA), and cerebral infarction without residual deficits
CPT/HCPCS: 36415; 36416; 85610

== ENCOUNTER 2023-07-21 20:54 | Emergency (ER) | payer SELFPAY ==
[2023-07-21 21:19] VITALS: BP 125/89; PULSE 67; RESP 16; TEMP 36.6; O2SAT 97; BMI 28.4
--- NOTE | 2023-07-21 22:04 | ED.RN ---
STATES HE IS NOT SWELLING AND BITE DOESN'T LOOK BAD, SO HE IS GOING TO LEAVE.
== END 2023-07-21 22:05 | disposition left against medical advice (07) ==
LOC: ED 22:14
DX: Z00.00 Encounter for general adult medical examination without abnormal findings (principal)

== ENCOUNTER 2023-08-10 20:09 | Emergency (ER) | payer SELFPAY ==
[2023-08-10 20:10] VITALS: BP 126/88; PULSE 82; RESP 15; TEMP 36.6; O2SAT 100; BMI 28.5
--- NOTE | 2023-08-10 20:44 | ED.VIS.GI ---
HPI HPI - GI History of Present Illness Chief Complaint: GI Bleed Informant: patient Nausea/Vomiting/Emesis GI Symptom: Positive for Nausea; Negative for Vomiting Diarrhea/Melena/Hematochezia GI Symptom: Positive for Diarrhea and Hematochezia Stool Quality: Positive for Watery and BRB per rectum Episodes: 2 Associated Symptoms Associated Symptoms: Negative for Dysuria, Frequency or Hematuria Narrative Narrative: Presents with rectal bleeding that he noticed today. Patient has been having some diarrhea for the past few days. Patient states that today he noted some red blood per rectum. Patient denies any abdominal pain. Patient admits to some mild nausea but denies any vomiting. Patient was recently started on Augmentin for a cat bite 5 days ago. Patient has been taking this as prescribed. Patient states he also took some Pepto-Bismol today which has not helped. [facility] Medical History Atrial fibrillation with RVR Cardiomyopathy History of TIA (transient ischemic attack) Non-ischemic cardiomyopathy Paroxysmal atrial fibrillation TIA (transient ischemic attack) (04/26/20) Home Medications multivitamin 1 tab PO DAILY SUPPLEMENT 03/01/21 [History Last Taken 2 Days Ago ~02/27/21] flecainide 50 mg tablet 50 mg PO Q12H #60 tabs 05/16/23 [Rx Last Taken Unknown] metoprolol tartrate 25 mg tablet 25 mg PO BID #60 tabs 05/16/23 [Rx Last Taken Unknown] warfarin 4 mg tablet 4 mg PO .COMPLEX #90 tabs 06/12/23 [Rx Last Taken Unknown] buspirone 5 mg tablet 5 mg PO BID anxiety #60 tabs 06/24/23 [Rx Last Taken Unknown] amoxicillin 875 mg tablet 875 mg PO BID 08/10/23 [History Last Taken Unknown] Allergy/AdvReac Type Severity Reaction Status Date / Time No Known Allergies Allergy Verified 08/10/23 20:13 Family History Father Heart disease Hypertension Surgical History History of cardioversion (09/08/15) Social History Smoking Status: Never smoker second hand exposure: No alcohol intake: former substance use type: does not use jaxon/mandaen: Sikh seatbelt use: sometimes ROS ROS ED Constitutional Constitutional ED: Denies chills or fever(s) Eyes Eyes: Denies blurry vision or change in vision ENT ENT ED: Denies rhinorrhea or sore throat Cardiovascular Cardiovascular: Denies chest pain or palpitations Respiratory/Chest Respiratory/Chest: Denies cough or dyspnea Gastrointestinal Gastrointestinal: Reports diarrhea and nausea; Denies vomiting Genitourinary Genitourinary ED: Denies dysuria or hematuria Musculoskeletal Musculoskeletal: Denies back pain or neck pain Integumentary Denies abscess or rash Neurologic Neurologic: Reports headache(s); Denies weakness Allergic/Immunologic Allergic/Immunologic ED: Denies mouth swelling or urticaria EXAM Physical Exam Const Vital Signs: 08/10/23 20:10 Temperature 97.9 F Temperature Source Temporal Pulse Rate 82 Respiratory Rate 15 Blood Pressure 126/88 H Blood Pressure Mean 100 Pulse Ox 100 Oxygen Delivery Method Room Air Positive well nourished and well developed General Appearance ED: well developed and NAD HEENT Reports moist mucous membranes Neck supple and no JVD Resp normal respiratory effort and clear to auscultation bilaterally Cardio regular rate and regular rhythm GI non-tender and non-distended Palpation: soft Rectal Exam: visual inspection normal and normal sphincter tone; Negative for external hemorrhoid(s) Extremity General Extremety ED: Negative for edema or tenderness General Extremity: Negative for edema Neuro CN's II-XII intact bilaterally, moves all extremities and no sensory deficits noted Sensorium / Orientation: alert Motor Exam: strength 5/5 throughout Psych mental status grossly normal and thought process normal MDM MDM MDM Narrative Medical decision making narrative: Differential diagnosis includes gastroenteritis, colitis, internal hemorrhoid, coagulopathy, anemia, and viral illness. CBC will be obtained to assess for leukocytosis and anemia. Comprehensive metabolic profile will be obtained to assess for hepatic function, renal function, and electrolyte abnormality. PT with INR and PTT will be obtained to assess for coagulopathy. Urinalysis will be obtained to assess for hematuria and urinary tract infection. Lab Data Attestation: I reviewed the patient's lab results. Lab results narrative: CBC was reviewed and was within normal limits. PT with INR and PTT were reviewed. Pro time was 27.0 and INR was therapeutic at 2.5. PTT was 46.0. Stool for occult blood was reviewed and was negative. Comprehensive metabolic profile was reviewed and was essentially within normal limits. Urinalysis was reviewed. There is no evidence of urinary tract infection or hematuria. Labs: Laboratory Results - last 24 hr 08/10/23 08/10/23 20:30 20:56 WBC 9.7 RBC 5.09 Hgb 14.9 Hct 45.1 MCV 88.6 MCH 29.3 MCHC 33.0 RDW Std Deviation 42.7 RDW Coeff of Cher 13.2 Plt Count 209 MPV 10.3 Immature Gran % (Auto) 0.400 Neut % (Auto) 63.7 Lymph % (Auto) 24.1 [place] % (Auto) 8.8 Eos % (Auto) 2.5 Baso % (Auto) 0.5 Absolute Neuts (auto) 6.2 Absolute Lymphs (auto) 2.33 Nucleated RBC % 0 PT 27.0 H INR 2.5 APTT 46.0 H Sodium 139 Potassium 4.1 Chloride 109 H Carbon Dioxide 25.0 Anion Gap 5 BUN 22 H Creatinine 1.20 Estim Creat Clear Calc 79.92 Est GFR (MDRD) Af Amer 81 Est GFR (MDRD) Non-Af 67 BUN/Creatinine Ratio 18.3 Glucose 96 Calcium 8.8 Total Bilirubin 0.20 AST 20 ALT 48 Alkaline Phosphatase 67 Total Protein 7.3 Albumin 3.8 Globulin 3.5 Albumin/Globulin Ratio 1.1 Urine Color Yellow Urine Clarity Clear Urine pH 6.0 Ur Specific [place] 1.025 Urine Protein 30 H Urine Glucose (UA) 50 H Urine Ketones Negative Urine Occult Blood 25 H Urine Nitrite Negative Urine Bilirubin Negative Urine Urobilinogen Normal Ur Leukocyte Esterase Negative Urine RBC 0 SEEN Urine WBC 0-5 SEEN Ur Squamous Epith Cells 0-5 SEEN Urine Bacteria 0 SEEN Urine Mucus 0 SEEN Treatment and Re-Evaluation :: Patient was given IV fluids. Patient is feeling better on reevaluation. Patient was advised of his findings. Patient was instructed to continue his Augmentin as prescribed. Patient instructed to try eating yogurt with it to help with the diarrhea. Patient was instructed to follow-up with his primary care physician in 5 to 7 days. Patient was instructed return if worse in any way. Patient understood and was agreeable with the plan. All questions were answered. Discharge Plan Triage Chief Complaint: GI Bleed ED Provider: Claudio De Souza Dx/Rx/DC Orders Clinical Impression: Diarrhea Instructions: ED Diarrhea, Unknown Cause Prescriptions: No Action flecainide 50 mg tablet 50 mg PO Q12H Qty: 60 11RF metoprolol tartrate 25 mg tablet 25 mg PO BID Qty: 60 11RF buspirone 5 mg tablet 5 mg PO BID Qty: 60 7RF multivitamin Tablet 1 tab PO DAILY amoxicillin 875 mg tablet 875 mg PO BID Patient Comments: TAKE 1 TABLET BY MOUTH TWICE DAILY warfarin 4 mg tablet 4 mg PO .COMPLEX Qty: 90 3RF Protocol: Dose Management Condition: Friday Dose/Route: 6 mg Instruction: 1.5 x 4 mg tablets Condition: Friday Dose/Route: 6 mg Instruction: 1.5 x 4 mg tablets Condition: Friday Dose/Route: 6 mg Instruction: 1.5 x 4 mg tablets Condition: Friday Dose/Route: 6 mg Instruction: 1.5 x 4 mg tablets Condition: Dose/Route: 6 mg Instruction: 1.5 x 4 mg tablets Condition: Friday Dose/Route: 6 mg Instruction: 1.5 x 4 mg tablets Condition: Friday Dose/Route: 6 mg Instruction: 1.5 x 4 mg tablets Protocol Text: Adjustment Start Date: 07/31/23 INR Value: 2.2 INR Date: 07/31/23 Recheck Date: 08/14/23 Rx Instructions: 4 mg orally every evening; Primary Care Provider: Care Physician,No Primary Referrals: Care Physician,No Primary [Primary Care Provider] - Doctor,Your [Non-Staff] - 5-7 Days Disposition Disposition: Home, Self Care
[2023-08-10] MEDS: 0.9% Normal Saline (1000mL) 1,000 ML 1000 ML IV (20:53)
[2023-08-10 20:59] LABS: Absolute Lymphocyte Count 2.33 X10^3/uL (0.83-4.51); Absolute Neutrophil Count 6.2 X10^3/uL (2.0-7.7); Basophil# 0.05 X10^3/uL; Basophil% 0.5 % (0-1); Eosinophil# 0.24 X10^3/uL; Eosinophils% 2.5 % (0-5); Hematocrit 45.1 % (40-54); Hemoglobin 14.9 g/dL (13.0-16.5); Lymphocyte # 2.33 X10^3/ul (0.83-4.51); Lymphocyte % 24.1 % (19-41); Mean Corpuscular Hgb 29.3 pg (27.0-32.0); Mean Corpuscular Volume 88.6 fL (80-94); Mean Platelet Vol. 10.3 fl (6.2-12.0); Monocyte# 0.85 X10^3/uL; Monocyte% 8.8 % (0-10); NRBC Flagged by Analyzer 0 % (0-5); Neutrophil # 6.15 X10^3/uL (2.7-7.7); Neutrophil % 63.7 % (47-70); Platelet Count 209 K/mm3 (150-450); RBC Distribution Width CV 13.2 % (11.6-14.6); RBC Distribution Width SD 42.7 fl (35.1-43.9); Red Blood Count 5.09 M/mm3 (4.6-6.2); White Blood Count 9.7 K/mm3 (4.4-11.0)
[2023-08-10 21:06] LABS: Bacteria 0 SEEN /hpf (None Seen); Mucous, Urine 0 SEEN /hpf (<or=2+); Red Blood Cells-Urine 0 SEEN /hpf (0-5)
[2023-08-10 21:15] LABS: Color, Urine Yellow (Yellow); Glucose, Dipstick 50 mg/dl (Normal); Ketone-Dipstick Negative (Negative); Leukocyte Esterase-Dipstick Negative /ul (Negative); Nitrite-Dipstick Negative (Negative); Occult Blood-Urine 25 /ul (Negative); Protein-Dipstick 30 mg/dl (Negative); Specific Gravity, Urine 1.025 (1.002-1.030); Urine Bilirubin Dipstick Negative (Negative); Urine Clarity Clear (Clear); Urine Urobilinogen Normal (Normal)
[2023-08-10 21:18] LABS: International Normalized Ratio 2.5
[2023-08-10 21:22] LABS: ALB/GLOB Ratio 1.1 RATIO (0.9-2.4); AST(SGOT) 20 U/L (15-37); Alanine Aminotransfer ALT/SGPT 48 U/L (16-61); Albumin, Serum 3.8 g/dL (3.2-5.0); Alkaline Phosphatase 67 U/L (45-117); Anion Gap 5 (5-15); BUN 22 mg/dL (7-18); BUN/Creat Ratio 18.3 RATIO (10-20); Calcium,Total 8.8 mg/dL (8.5-10.1); Chloride 109 mmol/L (98-107); EST Glomerular Filtration Rate 67 mL/min (>60); Est Glom Filt Rate - Afr Amer 81 mL/min (>60); Estimated Creatinine Clearance 79.92 ml/min; Globulin 3.5 g/dL (2.2-4.2); Glucose 96 mg/dL (74-106); Potassium 4.1 mmol/L (3.5-5.1); Protein, Total 7.3 g/dL (6.4-8.2); Sodium Level 139 mmol/L (136-145)
[2023-08-10 21:31] LABS: Squamous Epithelial Cells - UA 0-5 SEEN /hpf (0-5); White Blood Cells 0-5 SEEN /hpf (0-5)
[2023-08-10 21:38] VITALS: BP 128/76; PULSE 69; RESP 18; O2SAT 100
== END 2023-08-10 21:40 | disposition home or self-care (01) ==
PROVIDERS: Emergency Provider Emergency Medicine; Visit Provider Emergency Medicine
DX: R19.7 Diarrhea, unspecified (principal); I48.0 Paroxysmal atrial fibrillation; Z86.73 Personal history of transient ischemic attack (TIA), and cerebral infarction without residual deficits; Z79.01 Long term (current) use of anticoagulants
CPT/HCPCS: 96360; 80053; 81001; 82274; 85025; 85610; 85730; 99282; J7030; A4216

== ENCOUNTER 2023-08-14 05:58 | Outpatient (RCR) | payer SELFPAY ==
[2023-07-31 09:10] LABS: International Normalized Ratio 2.2; Prothrombin Time (Protime)PT. 24.3 SECONDS (11.7-14.9)
[2023-07-31 09:54] LABS: Hemoglobin A1c 5.5 % (3.8-5.6)
[2023-08-14 06:25] LABS: INR Fingerstick 1.7; Prothrombin Time Fingerstick 19.2 SEC (11.7-14.9)
== END 2023-08-14 18:00 | disposition home or self-care (01) ==
LOC: LAB 05:58
PROVIDERS: Internal Medicine Cardiovascular Disease; Psychiatry & Neurology Neurology; Referring Provider Physician Assistant Medical; Visit Provider Physician Assistant Medical
DX: I48.0 Paroxysmal atrial fibrillation (principal); Z79.01 Long term (current) use of anticoagulants; Z86.73 Personal history of transient ischemic attack (TIA), and cerebral infarction without residual deficits
CPT/HCPCS: 36415; 36416; 83036; 85610

== ENCOUNTER 2023-09-09 07:09 | Outpatient (RCR) | payer SELFPAY ==
[2023-08-29 12:01] LABS: International Normalized Ratio 1.8; Prothrombin Time (Protime)PT. 21.3 SECONDS (11.7-14.9)
[2023-09-09 07:24] LABS: INR Fingerstick 2.1; Prothrombin Time Fingerstick 22.9 SEC (11.7-14.9)
== END 2023-09-18 18:00 | disposition home or self-care (01) ==
LOC: LAB 07:09
PROVIDERS: Referring Provider Physician Assistant Medical; Visit Provider Physician Assistant Medical
DX: I48.0 Paroxysmal atrial fibrillation (principal); Z79.01 Long term (current) use of anticoagulants; Z86.73 Personal history of transient ischemic attack (TIA), and cerebral infarction without residual deficits
CPT/HCPCS: 36415; 36416; 85610

== ENCOUNTER 2023-09-25 05:58 | Outpatient (RCR) | payer SELFPAY ==
[2023-09-25 06:12] LABS: INR Fingerstick 2.9; Prothrombin Time Fingerstick 30.8 SEC (11.7-14.9)
== END 2023-10-19 18:00 | disposition home or self-care (01) ==
LOC: LAB 05:58
PROVIDERS: Referring Provider Physician Assistant Medical; Visit Provider Physician Assistant Medical
DX: I48.0 Paroxysmal atrial fibrillation (principal); Z79.01 Long term (current) use of anticoagulants; Z86.73 Personal history of transient ischemic attack (TIA), and cerebral infarction without residual deficits
CPT/HCPCS: 36416; 85610

== ENCOUNTER 2023-10-30 06:04 | Outpatient (RCR) | payer SELFPAY ==
[2023-10-30 06:13] LABS: INR Fingerstick 2.6
== END 2023-10-30 18:00 | disposition home or self-care (01) ==
LOC: LAB 06:04
PROVIDERS: Referring Provider Physician Assistant Medical; Visit Provider Physician Assistant Medical
DX: I48.0 Paroxysmal atrial fibrillation (principal); Z79.01 Long term (current) use of anticoagulants; Z86.73 Personal history of transient ischemic attack (TIA), and cerebral infarction without residual deficits
CPT/HCPCS: 36416; 85610

== ENCOUNTER 2024-06-01 20:09 | Emergency (ER) | payer SELFPAY ==
[2024-06-01 20:10] VITALS: BP 127/71; PULSE 80; RESP 15; TEMP 36.8; O2SAT 97; BMI 28.3
--- NOTE | 2024-06-01 20:20 | RAD_ITS ---
EXAM: XR CHEST, 1 VIEW CLINICAL INDICATION: palpitations TECHNIQUE: Frontal view of the chest. COMPARISON: 05/10/2023 FINDINGS: LUNGS AND PLEURAL SPACES: Unremarkable. No consolidation or edema. No pneumothorax. No effusion. HEART: Unremarkable. Cardiac silhouette not enlarged. MEDIASTINUM: Central airways and mediastinal contour are unremarkable. BONES/JOINTS: Unremarkable. No acute fracture. SOFT TISSUES: Unremarkable. RAD/Chest 1 View (Portable) IMPRESSION: No radiographic evidence of acute cardiopulmonary disease. Electronically Signed: Colt Kirby MD at 21:18 EDT ,
[2024-06-01 20:31] LABS: Absolute Lymphocyte Count 1.65 X10^3/uL (0.83-4.51); Absolute Neutrophil Count 4.1 X10^3/uL (2.0-7.7); Basophil# 0.04 X10^3/uL; Basophil% 0.6 % (0-1); Eosinophil# 0.16 X10^3/uL; Eosinophils% 2.4 % (0-5); Hematocrit 41.7 % (40-54); Lymphocyte # 1.65 X10^3/ul (0.83-4.51); Lymphocyte % 25.1 % (19-41); Mean Corp Hgb Conc 33.6 g/dL (32-36); Mean Corpuscular Hgb 29.4 pg (27.0-32.0); Mean Corpuscular Volume 87.6 fL (80-94); Monocyte# 0.61 X10^3/uL; Monocyte% 9.3 % (0-10); NRBC Flagged by Analyzer 0 % (0-5); Neutrophil # 4.08 X10^3/uL (2.7-7.7); Neutrophil % 62.1 % (47-70); Platelet Count 161 K/mm3 (150-450); RBC Distribution Width CV 13.4 % (11.6-14.6); RBC Distribution Width SD 43.5 fl (35.1-43.9); Red Blood Count 4.76 M/mm3 (4.6-6.2); White Blood Count 6.6 K/mm3 (4.4-11.0)
[2024-06-01] MEDS: 0.9% Normal Saline (500mL Bag) 500 ML 999 ML IV (20:31)
[2024-06-01 20:58] LABS: Anion Gap 7 (5-15); BUN 11 mg/dL (7-18); BUN/Creat Ratio 10.6 RATIO (10-20); Calcium,Total 8.4 mg/dL (8.5-10.1); Chloride 108 mmol/L (98-107); Creatinine, Serum 1.04 mg/dL (0.70-1.30); EST Glomerular Filtration Rate 78 mL/min (>60); Est Glom Filt Rate - Afr Amer 95 mL/min (>60); Estimated Creatinine Clearance 100.29 ml/min; Free T3 2.8 pg/mL (2.18-3.98); Glucose 145 mg/dL (74-106); Potassium 3.5 mmol/L (3.5-5.1); Sodium Level 140 mmol/L (136-145); T4 Free Direct 1.05 ng/dL (0.76-1.46); Troponin-I HS 5 pg/mL (3.0-78.0)
[2024-06-01 21:05] VITALS: BP 122/46; PULSE 78; RESP 16; O2SAT 98
--- NOTE | 2024-06-01 21:49 | ED.VIS.CHEST ---
HPI History of Present Illness Chief Complaint: Palpitations [facility] Medical History Atrial fibrillation with RVR Cardiomyopathy History of TIA (transient ischemic attack) Non-ischemic cardiomyopathy Paroxysmal atrial fibrillation TIA (transient ischemic attack) (04/26/20) Home Medications ?Medication ?Instructions ?Recorded ?Last Taken ?Type multivitamin 1 tab PO DAILY SUPPLEMENT 03/01/21 2 Days Ago History ~02/27/21 aspirin 81 mg tablet,delayed 81 mg PO DAILY #90 tabs 10/31/23 Unknown Rx release (Adult Aspirin Regimen) buspirone 5 mg tablet 5 mg PO BID anxiety #60 tabs 04/12/24 Unknown Rx flecainide 50 mg tablet 50 mg PO Q12H #60 TABLETS 05/10/24 Unknown Rx metoprolol tartrate 25 mg tablet 25 mg PO BID #60 TABLETS 05/10/24 Unknown Rx Allergy/AdvReac Type Severity Reaction Status Date / Time No Known Allergies Allergy Verified 06/01/24 20:16 Family History Father Heart disease Hypertension Surgical History History of cardioversion (09/08/15) Social History Smoking Status: Never smoker second hand exposure: No alcohol intake: former substance use type: does not use jaxon/confucianist: Lutheran seatbelt use: sometimes EXAM Physical Exam Const Vital Signs: 06/01/24 20:10 06/01/24 20:16 06/01/24 20:32 Temperature 98.3 F Temperature Source Oral Pulse Rate 80 Respiratory Rate 15 Respiratory Effort Normal Blood Pressure 127/71 H Blood Pressure Mean 89 Pulse Ox 97 Oxygen Delivery Method Room Air Room Air 06/01/24 21:05 Temperature Temperature Source Pulse Rate 78 Respiratory Rate 16 Respiratory Effort Blood Pressure 122/46 H Blood Pressure Mean 71 Pulse Ox 98 Oxygen Delivery Method Room Air MDM MDM MDM Narrative Medical decision making narrative: HISTORY OF PRESENT ILLNESS: 58-year-old male presents with palpitations. Per patient report he notes palpitations that began approximately 2 hours prior to arrival. No shortness of breath as well. No symptoms completely relieved after EMS got there and gave him fluids. Per EMS patient converted from A-fib with RVR to normal sinus rhythm spontaneously. Per EMS he received 1 L normal saline as well as Zofran. Patient denies any chest pain. Denies any leg swelling. Denies any cough fever chills. The patient denies recent surgery in the last 4 weeks or immobilization in the last 3 days, denies previous diagnosis of DVT or PE, hemoptysis, unilateral leg swelling or malignancy with treatment the last 6 months or palliative. No estrogen use noted. REVIEW OF SYSTEMS: Pertinent positives: Palpitations, shortness of breath Pertinent negatives: Leg swelling, cough fever chills PHYSICAL EXAM: Nursing triage notes reviewed, Vital signs reviewed Constitutional: please see mdm HENT: MMM Eyes: Pupils equal round and reactive to light, Extraocular muscles intact Neck: No stridor, no JVD, full neck ROM Lungs: Clear to auscultation, No wheezing or rales. No increased work of breathing, no conversational dyspnea, no accessory muscle use, no nasal flaring. No respiratory distress noted Heart: Regular rate and rhythm, No murmurs, No rubs and No gallops, 2+ distal pulses (radial, femoral, posterior tibial) in all extremities Abdomen: Soft, there is no tenderness, rigidity, rebound or guarding, no obvious peritoneal signs, no palpable pulsatile abdominal masses, no auscultated abdominal bruit : No CVAT Extremities: No edema Neuro: No focal neurological deficits, cranial nerves II through XII intact, 5/5 strength in all extremities. Intact sensation to light touch in all extremities, 2+ reflexes bilateral patella tendons. Normal gait. No ataxia. Skin: No rash or lesions noted MEDICAL DECISION MAKING: Chief Complaint: Palpitations External records reviewed: Imaging reviewed: Echocardiogram from 2020 shows an ejection fraction of 55 to 60% Factors affecting care: History of A-fib, cardiomyopathy, TRAM, TIA Social determinants of health: Denies drug use History obtained from others: none Consults: none [facility] Narrative: The patient was hemodynamically stable, afebrile, nontoxic-appearing. Exam without focal cardiopulmonary normalities I considered the following differential diagnosis: Arrhythmia, anemia, electro disturbance, ACS, pneumonia I obtained a broad lab and imaging workup to further elucidate etiology of patient complaint. ALL IMAGES (IF OBTAINED) HAVE BEEN PERSONALLY REVIEWED AND INTERPRETED BY MYSELF. EMS EKG showed normal sinus rhythm. ED EKG showed normal sinus rhythm, left ax deviation, normal intervals, no STEMI High-sensitivity troponin is negative, no evidence of myocardial ischemia TSH slightly elevated however free T3 and free T4 normal making thyroid dysfunction less likely I have personally reviewed the patient's chest x-ray. Chest x-ray is unremarkable for pulmonary edema, pneumothorax, pneumonia or focal cardiopulmonary abnormality. CBC without leukocytosis, severe anemia, no thrombocytopenia. BMP without evidence of significant electrolyte abnormalities, no anion gap, no acute kidney injury. The synthesis of the patient's history, physical exam, labs images suggest likely A-fib with RVR that spontaneously converted. The patient is asymptomatic upon reassessment. He is hemodynamically stable. Labs images were unremarkable. Patient is appropriate for discharge home. The patient and/or family, caregivers express understanding. The patient and/or family, caregivers agrees with the plan. Shared decision making: I will have a discussion with the patient and or visitors regarding risk/benefits of further testing or admission. They will be made aware of of the risk/benefits inherent in this decision they will be given the opportunity to voice understanding. Total critical care time today provided was at least 0 minutes. This excludes separately billable procedures. Critical care time (if documented) is secondary to the patient having high probability of clinically significant/life threatening deterioration in the patient's condition which required my urgent intervention. Impression: 1. A-fib with RVR 2. History of atrial fibrillation Dispo: Discharge home This note was generated with [employer] dictation software. It may contain incorrect words, spelling, and punctuation that were not noted in review of the chart prior to signing. Lab Data Labs: Laboratory Results - last 24 hr 06/01/24 20:15 WBC 6.6 RBC 4.76 Hgb 14.0 Hct 41.7 MCV 87.6 MCH 29.4 MCHC 33.6 RDW Std Deviation 43.5 RDW Coeff of Cher 13.4 Plt Count 161 MPV 11.0 Immature Gran % (Auto) 0.500 Neut % (Auto) 62.1 Lymph % (Auto) 25.1 [place] % (Auto) 9.3 Eos % (Auto) 2.4 Baso % (Auto) 0.6 Absolute Neuts (auto) 4.1 Absolute Lymphs (auto) 1.65 Nucleated RBC % 0 Sodium 140 Potassium 3.5 Chloride 108 H Carbon Dioxide 25.0 Anion Gap 7 BUN 11 Creatinine 1.04 Estim Creat Clear Calc 100.29 Est GFR (MDRD) Af Amer 95 Est GFR (MDRD) Non-Af 78 BUN/Creatinine Ratio 10.6 Glucose 145 H Calcium 8.4 L Troponin I High Sens 5 TSH 3.940 H Free T4 1.05 Free T3 pg/dL 2.8 Radiography Diagnostic Testing: Clinical Impression(s) from Imaging Studies Chest X-Ray 06/01/24 20:20 IMPRESSION: No radiographic evidence of acute cardiopulmonary disease. Electronically Signed: Colt Kirby MD at 21:18 EDT , Discharge Plan Triage Chief Complaint: Palpitations ED Provider: Jose Tarango Dx/Rx/DC Orders Clinical Impression: Paroxysmal atrial fibrillation Instructions: AFib Prescriptions: No Action buspirone 5 mg tablet 5 mg PO BID Qty: 60 11RF multivitamin Tablet 1 tab PO DAILY aspirin [Adult Aspirin Regimen] 81 mg tablet,delayed release (DR/EC) 81 mg PO DAILY Qty: 90 3RF metoprolol tartrate 25 mg tablet 25 mg PO BID Qty: 60 11RF flecainide 50 mg tablet 50 mg PO Q12H Qty: 60 11RF Primary Care Provider: Care Physician,No Primary Referrals: Michael Mata MD [Med Staff - Active Staff] - Activity Restrictions/Additional Instructions: Thank you for trusting us with your care today! Please take Tylenol (2 pills, 650 mg), ibuprofen (2 pills, 400 mg) every 6 hours as needed for pain and fever control. Please return to the emergency department if your symptoms change or worsen. Please follow with your primary care physician for further outpatient evaluation and management. Print Language: Hebrew Disposition Disposition: Home, Self Care
[2024-06-01 21:53] VITALS: BP 118/69; PULSE 75; RESP 16; TEMP 37.2; O2SAT 98
== END 2024-06-01 22:00 | disposition home or self-care (01) ==
PROVIDERS: Emergency Provider Emergency Medicine; Visit Provider Emergency Medicine
DX: I48.0 Paroxysmal atrial fibrillation (principal); I42.8 Other cardiomyopathies; Z79.82 Long term (current) use of aspirin; Z79.899 Other long term (current) drug therapy; Z86.73 Personal history of transient ischemic attack (TIA), and cerebral infarction without residual deficits
CPT/HCPCS: 71045; 80048; 84439; 84443; 84481; 84484; 85025; 93005; 96360; 99284; J7040; A4216

== ENCOUNTER → 2024-06-23 | Outpatient (CLI) | payer SELFPAY ==
--- NOTE | 2024-06-23 13:38 | ECHOD_ITS ---
Reason For Study: ATRIAL FIBRILLATION Procedure This was a 2D Doppler, Color Flow transthoracic echocardiogram. Exam performed in department. Left Ventricle Normal LV size. Left ventricular systolic function is normal. The left ventricular ejection fraction is 55 %. No regional wall motion abnormalities noted. Right Ventricle Normal RV size. Normal systolic function. Atria Normal left atrium. Normal right atrium. Mitral Valve Normal mitral valve. Tricuspid Valve Normal tricuspid valve. Aortic Valve Trisinus/trileaflet aortic valve. Mild (1+) aortic valve insufficiency. Pulmonic Valve Normal pulmonic valve. Great Vessels Normal aortic root. The pulmonary artery is normal size. Normal inferior vena cava. Pericardium/Pleural No pericardial effusion. MMode/2D Measurements & Calculations LVIDd: 4.7 cm IVSd: 1.1 cm LVOT diam: 2.2 cm LVIDs: 3.4 cm LVPWd: 0.85 cm LVOT area: 3.9 cm2 RVDd: 4.6 cm FS: 27.4 % Ao root diam: 4.1 cm LAV(MOD-bp): 55.4 ml LVAd ap4: 30.1 cm2 LAV(MOD-bp) Indexed: 24.7 ml/m2 LVLd ap4: 8.3 cm LAV(MOD-sp2): 51.5 ml EDV(MOD-sp4): 90.3 ml LAV(MOD-sp4): 52.9 ml EDV(sp4-el): 93.3 ml LVAs ap4: 18.5 cm2 LVLs ap4: 7.0 cm ESV(MOD-sp4): 42.1 ml ESV(sp4-el): 41.4 ml EF(MOD-sp4): 53.4 % EF(sp4-el): 55.6 % LVAd ap2: 31.3 cm2 SV(MOD-sp4): 48.2 ml SV(MOD-sp2): 60.9 ml LVLd ap2: 8.1 cm EDV(MOD-sp2): 102.8 ml EDV(sp2-el): 102.5 ml LVAs ap2: 18.6 cm2 LVLs ap2: 7.0 cm ESV(MOD-sp2): 41.9 ml ESV(sp2-el): 41.5 ml EF(MOD-sp2): 59.3 % SV(sp4-el): 51.9 ml LA dimension(2D): 3.6 cm LA A4 area: 19.8 cm2 RA A4 area: 15.1 cm2 TAPSE: 2.2 cm Time Measurements MV dec time: 0.17 sec Doppler Measurements & Calculations MV E max joe: 70.3 cm/sec Lat Peak E' Joe: 15.7 cm/sec Med Peak E' Joe: 7.8 cm/sec MV A max joe: 42.0 cm/sec E/E' lat: 4.5 E/E' med: 9.0 MV E/A: 1.7 Ao V2 max: 117.1 cm/sec LV V1 max: 81.6 cm/sec MV dec slope: 402.6 cm/sec2 Ao max P.5 mmHg LV V1 max P.7 mmHg Ao V2 mean: 82.2 cm/sec LV V1 mean P.4 mmHg Ao mean P.1 mmHg LV V1 mean: 54.6 cm/sec Ao V2 VTI: 27.5 cm LV V1 VTI: 19.0 cm AV (velocity ratio): 0.69 ROBBIE(I,D): 2.7 cm2 ROBBIE(V,D): 2.7 cm2 SV(LVOT): 74.1 ml ECHO/Echo Complete Interpretation Summary Normal LV size. Left ventricular systolic function is normal. The left ventricular ejection fraction is 55 %. Structurally normal valves. Ordering Physician: Ginny Cerda Referring Physician: Ginny Cerda Performed By: Chana Laguerre RDCS
== END | disposition home or self-care (01) ==
LOC: CVS 13:38
PROVIDERS: Referring Provider Physician Assistant Medical; Visit Provider Physician Assistant Medical
DX: I48.0 Paroxysmal atrial fibrillation (principal); I42.9 Cardiomyopathy, unspecified
CPT/HCPCS: 93306

== ENCOUNTER → 2025-03-31 | Outpatient (CLI) | payer MEDICAID, SELFPAY ==
[2025-03-31 18:11] LABS: Hemoglobin A1c 5.6 % (<=5.6)
[2025-03-31 18:38] LABS: Hematocrit 44.4 % (40-54); Hemoglobin 14.8 g/dL (13.0-16.5); Mean Corp Hgb Conc 33.3 g/dL (32-36); Mean Corpuscular Hgb 29.4 pg (27.0-32.0); Mean Corpuscular Volume 88.3 fL (80-94); Mean Platelet Vol. 11.5 fl (6.2-12.0); Platelet Count 205 K/mm3 (150-450); RBC Distribution Width CV 13.2 % (11.6-14.6); RBC Distribution Width SD 42.9 fl (35.1-43.9); Red Blood Count 5.03 M/mm3 (4.6-6.2); White Blood Count 6.2 K/mm3 (4.4-11.0)
[2025-03-31 18:52] LABS: ALB/GLOB Ratio 1.6 RATIO (0.9-2.4); AST(SGOT) 24 U/L (<=37); Alanine Aminotransfer ALT/SGPT 26 U/L (<=46); Albumin, Serum 4.6 g/dL (3.5-5.0); Alkaline Phosphatase 82 U/L (40-129); Anion Gap 12 (5-15); BUN 16 mg/dL (4-19); BUN/Creat Ratio 15.3 RATIO (10-20); Calcium,Total 9.9 mg/dL (7.6-11.0); Carbon Dioxide 23.2 mmol/L (21.0-32.0); Chloride 104 mmol/L (98-108); Creatinine, Serum 1.05 mg/dL (0.70-1.20); EST Glomerular Filtration Rate 83 (>60); Globulin 2.8 g/dL (2.2-4.2); Glucose 100 mg/dL (70-99); Potassium 4.9 mmol/L (3.3-5.1); Protein, Total 7.4 g/dL (5.9-8.4); Sodium Level 138 mmol/L (133-145); Total Bilirubin 0.63 mg/dL (0.00-1.30)
== END | disposition home or self-care (01) ==
LOC: MTLAB 15:38
PROVIDERS: Referring Provider Psychiatry & Neurology Neurology; Visit Provider Psychiatry & Neurology Neurology
DX: R23.2 Flushing (principal); R73.9 Hyperglycemia, unspecified
CPT/HCPCS: 36415; 80053; 82652; 83036; 84443; 85027